=== PATIENT | male | born 1960 | race Caucasian/White ===

== ENCOUNTER → 2020-09-14 14:40 | Outpatient (BNVA) | payer OTHER, SELFPAY | PROVIDERS: PCP Internal Medicine; Visit Provider Urology | DX: Z13.89 Encounter for screening for other disorder (principal) ==

== ENCOUNTER 2021-03-17 13:16 | Outpatient (REF) | payer OTHER, SELFPAY ==
[2021-03-17 14:52] LABS: Prostate Specific Antigen 7.23 ng/mL (<0.05-4.0)
== END 2021-03-17 13:17 | disposition home or self-care (01) ==
LOC: HO.HMGCLDS 13:16
PROVIDERS: PCP Internal Medicine; Visit Provider Urology
DX: N20.0 Calculus of kidney (principal); N40.1 Benign prostatic hyperplasia with lower urinary tract symptoms; N13.8 Other obstructive and reflux uropathy; R97.20 Elevated prostate specific antigen [PSA]; Z12.5 Encounter for screening for malignant neoplasm of prostate
CPT/HCPCS: 36415; 84153

== ENCOUNTER → 2021-03-22 13:46 | Outpatient (BNVA) | payer OTHER, SELFPAY | PROVIDERS: PCP Internal Medicine; Visit Provider Urology ==

== ENCOUNTER 2021-05-04 15:11 | Outpatient (REF) | payer OTHER, SELFPAY ==
[2021-05-04 17:23] LABS: PSA,Total (Free>4and<10) 4.47 ng/mL (0.00-4.00)
[2021-05-08 13:21] LABS: Free Prostate Spec Ag 0.3 ng/mL; Percent Free Prostate Spec Ag 7 % (calc) (>25); Prostate Specific Ag Total 4.4 ng/mL (< OR = 4.0)
== END 2021-05-04 15:12 | disposition home or self-care (01) ==
LOC: HO.HMGCLDS 15:11
PROVIDERS: PCP Internal Medicine; Visit Provider Urology
DX: Z12.5 Encounter for screening for malignant neoplasm of prostate (principal); R97.20 Elevated prostate specific antigen [PSA]
CPT/HCPCS: 36415; 84153; 84154

== ENCOUNTER → 2021-05-16 14:07 | Outpatient (BNVA) | payer OTHER, SELFPAY | PROVIDERS: Visit Provider Urology | DX: Z13.89 Encounter for screening for other disorder (principal) ==

== ENCOUNTER → 2021-07-06 11:34 | Outpatient (BNVA) | payer OTHER, SELFPAY | PROVIDERS: PCP Internal Medicine; Visit Provider Urology ==

== ENCOUNTER → 2021-08-09 08:32 | Outpatient (BNVA) | payer OTHER, SELFPAY | PROVIDERS: PCP Internal Medicine; Visit Provider Urology ==

== ENCOUNTER → 2021-09-20 08:31 | Outpatient (BNVA) | payer OTHER, SELFPAY | PROVIDERS: PCP Internal Medicine; Visit Provider Urology | DX: Z13.89 Encounter for screening for other disorder (principal) ==

== ENCOUNTER 2022-01-17 14:03 | Outpatient (REF) | payer OTHER, SELFPAY ==
--- NOTE | ~2022-01-17 | US_ITS ---
EXAMINATION: US RETROPERITONEAL LIMITED (RENAL ONLY) CLINICAL INFORMATION: Calculus of kidney. COMPARISON: None TECHNIQUE: Real-time imaging of the kidneys. FINDINGS: RIGHT KIDNEY: 12.5 x 6.8 x 7.4 cm (SAG x AP x TRV). The kidney is normal in size, contour, and echogenicity. Renal cortical thickness is normal. No renal hydronephrosis. There is an anechoic partially exophytic cyst lower pole measuring 5.6 x 5.7 x 5.3 cm. A nonobstructive echogenic stone midpole measures 0.6 x 0.3 x 0.6 cm. There is no caliectasis. LEFT KIDNEY: 11 x 7.2 x 5.3 cm (SAG x AP x TRV). The kidney is normal in size, contour, and echogenicity. Renal cortical thickness is normal. No calculi or focal parenchymal lesions. No hydronephrosis. US/US renal BI IMPRESSION: 1. Partially exophytic cyst lower pole right kidney measuring 5.7 cm. 2. Nonobstructive echogenic calculi midpole right kidney. No caliectasis or hydronephrosis. 3. Unremarkable left kidney.
== END 2022-01-17 14:04 | disposition home or self-care (01) ==
LOC: HO.US 14:03
PROVIDERS: PCP Internal Medicine; Visit Provider Urology
DX: N20.0 Calculus of kidney (principal)
CPT/HCPCS: 76775

== ENCOUNTER → 2022-03-27 08:52 | Outpatient (BNVA) | payer OTHER, SELFPAY | PROVIDERS: PCP Internal Medicine; Visit Provider Urology | DX: R35.0 Frequency of micturition (principal); R35.1 Nocturia; R39.15 Urgency of urination | CPT/HCPCS: 51798 ==

== ENCOUNTER 2022-12-06 16:36 | Outpatient (REF) | payer OTHER, SELFPAY ==
[2022-12-06 18:30] LABS: PSA,Total (Free>4and<10) 5.63 ng/mL (0.00-4.00)
[2022-12-11 10:38] LABS: Free Prostate Spec Ag 0.5 ng/mL; Percent Free Prostate Spec Ag 11 % (calc) (>25); Prostate Specific Ag Total 4.7 ng/mL (< OR = 4.0)
== END 2022-12-06 16:37 | disposition home or self-care (01) ==
LOC: HO.LAB 16:36
PROVIDERS: PCP Internal Medicine; Visit Provider Urology
DX: R97.20 Elevated prostate specific antigen [PSA] (principal); Z12.5 Encounter for screening for malignant neoplasm of prostate
CPT/HCPCS: 36415; 84153; 84154

== ENCOUNTER → 2022-12-11 11:45 | Outpatient (BNVA) | payer OTHER, SELFPAY | PROVIDERS: PCP Internal Medicine; Visit Provider Urology | DX: R97.20 Elevated prostate specific antigen [PSA] (principal); N20.0 Calculus of kidney; Z79.899 Other long term (current) drug therapy | CPT/HCPCS: 51798 ==

== ENCOUNTER 2023-01-22 07:50 | Outpatient (REF) | payer OTHER, SELFPAY ==
[2023-01-22 07:36] VITALS: BP 179/105; PULSE 70; RESP 19; TEMP 36.6; O2SAT 95; BMI 44.1
--- NOTE | 2023-01-22 08:26 | W.PM.OPN ---
Operative Note Operative Note Date of Service: 01/22/23 Narrative: Preoperative diagnosis: Elevated PSA Postoperative diagnosis: elevated PSA Procedure: 1. transrectal ultrasound measurement of prostate 2. transrectal ultrasound-guided pudendal nerve block 3. transrectal ultrasound-guided prostate biopsy 12 core Surgeon: Dr. Kevin Escamilla Anesthetic: Local Indications for procedure: Elevated PSA On finasteride 5.6 Procedure: After informed consent was verified, the patient was brought into the procedure area and lay left-hand side down on the table. Patient identity confirmed. Perioperative antibiotics confirmed. Safety pause time out performed. JUAN performed to dilate rectal sphincter Iodine 10cc with Gel was placed per rectum Ultrasound probe was placed per rectum The prostate was measured in 3 dimensions Total volume equals 55 gm No cystic structures were noted Yes - calcifications were noted at the surgical margin The prostate was otherwise homogeneous in nature An ultrasound-guided pudendal nerve block was performed using 10 cc of 1% lidocaine. 8 cc was placed at the base and 2 cc of the apex. A 12 core biopsy was performed with 6 cores each side. Two cores were taken at the apex, mid and base. Cores were spaced between lateral and medial. He tolerated the procedure well. Was able to ambulate to bathroom after 5 minutes. Printed instructions regarding antibiotic use and common side effects such as low-grade temperature, potential infection and bleeding were given Pathology: 12 core prostate biopsy.
== END 2023-01-22 07:51 | disposition home or self-care (01) ==
LOC: HO.MS 07:50
PROVIDERS: PCP Internal Medicine; Visit Provider Urology
PROC: (CPT 55700; principal; 2023-01-22 08:00)
DX: C61 Malignant neoplasm of prostate (principal); R97.20 Elevated prostate specific antigen [PSA]
CPT/HCPCS: 55700; 76942; 88305

== ENCOUNTER → 2023-01-22 07:50 | Outpatient (BNV) | payer OTHER, SELFPAY | PROVIDERS: PCP Internal Medicine; Visit Provider Urology | DX: R97.20 Elevated prostate specific antigen [PSA] (principal) | CPT/HCPCS: 55700; 76942 ==

== ENCOUNTER 2023-02-05 09:49 | Outpatient (AMB) | payer OTHER, SELFPAY ==
--- NOTE | 2023-02-05 09:50 | A.OFFVIS_ITS ---
Intake Intake Visit Reasons: biopsy results Intake Note: Patient is present for Telephone Biopsy Urology Med: Festoterodine, Finasteride, Antibiotic Allergy: None Blood Thinner: None [facility]acy: [facility] Allergies meperidine [Demerol] Allergy (Unknown, Verified 02/05/23 09:51) Unknown Medication List - Last Reconciled 02/05/23 by Kevin Escamilla MD amlodipine 5 mg PO DAILY atorvastatin 20 mg PO DAILY fesoterodine ER 8 mg PO DAILY 30 days finasteride 5 mg PO DAILY 90 days hydrochlorothiazide 25 mg PO DAILY levofloxacin 500 mg PO daily 3 days nadolol 80 mg PO DAILY sertraline 3 mg PO Q OTHER DAY PRN sertraline 100 mg PO DAILY HPI HPI Comments History of Present Illness Details Mr Hagen is a very pleasant male. He is a patient of Dr Encinas. He is seen for the following urologic conditions. - lower urinary tract symptoms - nephrolithiasis Telemedicine Evaluation 15 min Consultation [employer] David Video attempted Discussed diagnosis High risk disease clinically localized Options include external beam radiation versus surgery Plan for staging imaging Has retired in is now working at [employer] - greatly improved his outlook on life Prostate Cancer - High risk, clinically localized Diagnosed 01/20 Dr Escamilla No family history of prostate cancer TRUS - 01/20 55gm PSA 4.7 F 11% on finasteride Jayna score: 5+4=9 (left apex lateral, left apex medial), 4+5=9 (left mid lateral, left mid medial), 3+5=8 (Left base medial), 3+4=7 (left base lateral) Tumor quantitation: Number cores positive: 6 Total number of cores: 12 % of tissue involved: 40% (all on the left) Periprostatic fat inv.: Not identified Seminal vesicle inv.: Not identified Perineural inv.: Present LVI: Not identified Lower Urinary Tract Symptoms: Current visit is for further evaluation of, lower urinary tract symptoms, predominate obstructive symptoms - PSA decline on finasteride from 7.2-4.5 Current treatment includes medication- finasteride Prior medications - oxybutynin with significant dehydration, dry mouth, tolterodine minimal benefit - Myrbetriq too expensive Prostate Symptom Score 8/18 , Mild (0-8), Bother 2. Symptoms include 8/ , nocturia (>2), weak stream, and are improving. PSA 06/18 4.8, 2/20 3.8, 08/21 4.4, 03/21 7.2, 05/21 4.5 finasteride, 12/21 4.7 11% Cystoscopy - 05/21 open bladder neck with high bladder lip Nephrolithiasis/Urolithiasis: They are here for further evaluation of nephrolithiasis Urolithiasis was diagnosed 2010. The patient previously had kidney stones whose composition w unknown. Laboratory investigations include no recent labs. 24 Hour urine evaluation none on file. Prior treatment(s) include observation, with dietary advice to increase fluids, decrease salt and watch protein intake , ESWL 04/10 right side. Prior imaging includes November 2015 a KUB x-ray, showing no evidence of stones December 2016, a KUB x-ray, showing no evidence of stones 01/15 , a renal ultrasound, right 2cm cyst, left 4x3mm stone 08/19 , a renal ultrasound, stable cyst and stoned in left kidney 08/20 , a renal ultrasound, stable cysts and no stones - 03/21 renal ultrasound bilateral renal cyst right 5 cm, left 2 cm. No stone - 01/19 renal ultrasound stable cysts, question 4 mm right stone UA today shows 5.5-6.0, low pH suggestive of higher protein load, high specific gravity suggestive of relative dehydration. Current therapeutic plan will be to continue with imaging surveillance at appropriate interval [facility] Medical History Benign prostatic hyperplasia with lower urinary tract symptoms Elevated PSA History of urinary hesitancy Poor urinary stream Weak urinary stream Surgical History H/O hand surgery Hx of lithotripsy Family History Father No problems noted. Mother Cancer Arthritis of knee Assessment & Plan Assessment & Plan (1) Prostate cancer: Comment: High Grade Code(s): C61 - Malignant neoplasm of prostate Plan Plan imaging Orders: Orders Blood Urea Nitrogen Today C61 - Malignant neoplasm of prostate, R39.15 - Urgency of urination Creatinine Today C61 - Malignant neoplasm of prostate, R39.15 - Urgency of urination MR pelvis wo/w con 2 Weeks C61 - Malignant neoplasm of prostate NM bone scan whole body Today C61 - Malignant neoplasm of prostate, C79.51 - Secondary malignant neoplasm of bone Patient Instructions: Imaging studies, laboratory and physical exam results were discussed and reviewed in detail. No major barriers to patient understanding were identified. An opportunity to ask questions regarding the treatment plan was provided. All questions were answered. The patient expressed understanding and agreement with the above treatment plan. The patient is aware they should contact our office by phone for worsening of their current condition or the appearance of new urologic symptoms. Compliance is encouraged with any medications and followup testing that is ordered. It is a privilege to participate in the urologic care of your patient. If you have any questions or concerns regarding treatment for the above conditions, or other urologic issues, please do not hesitate to contact me. The office telephone contact is [phone]. This note is constructed using voice recognition software. While every effort has been made to ensure accuracy communication coordinator errors may have been included. Yours sincerely, Dr Kevin Escamilla MD, [facility] - Urology Providers of Expert, Compassionate Care for the Genitourinary System Telehealth Telehealth Location of provider rendering services: practice address Location of patient: address on file Patient Identification confirmed using: Name, : Yes Telehealth method: video Patient verbally consented to treatment: Yes Patient verbally consented to billing insurance company: Yes Patient informed of any privacy concerns related to visit: Yes Coding Level of Care Code Tele Est Pt Level 4 (25244) Diagnoses Prostate cancer C61
== END 2023-02-05 11:36 | disposition home or self-care (01) ==
LOC: HO.HUSH 09:49
PROVIDERS: PCP Internal Medicine; Visit Provider Urology
DX: C61 Malignant neoplasm of prostate (principal)
CPT/HCPCS: 99214

== ENCOUNTER → 2023-02-05 09:49 | Outpatient (BNVA) | payer OTHER, SELFPAY | PROVIDERS: PCP Internal Medicine; Visit Provider Urology ==

== ENCOUNTER → 2023-02-18 10:49 | Outpatient (REF) | payer OTHER, SELFPAY ==
--- NOTE | ~2023-02-18 | NM_ITS ---
EXAMINATION: NM BONE SCAN OF THE WHOLE BODY CLINICAL INFORMATION: Elevated PSA. Newly diagnosed prostate cancer. COMPARISON: No existing relevant imaging study available. TECHNIQUE: Multiple gamma scintillation camera images of the whole body were performed 2.5 hours following the intravenous administration of 45.0 mCi Tc-99m MDP. The radiotracer was injected through left antecubital superficial vein without complications. FINDINGS: In the head, no focal abnormality. In the thoracic cage and upper extremities, no suspicious focal abnormality. In the spine, mild heterogeneous radiotracer uptake is noted within the thoracic spine, most pronounced at mid thoracic spine to the right of the midline, likely represent degenerative changes. In the pelvis, multifocal increased radiotracer activity is noted within the left hemipelvis and the left groin and around the external genitalia, likely represent urinary contamination. In the lower extremities, asymmetric focal increased radiotracer activity in the region of the calcaneus on the right may represent enthesopathy. No other definite bony abnormalities are noted. The urinary bladder and faint visualization of both kidneys are noted. NM/NM bone scan whole body IMPRESSION: No definite scintigraphic evidence of osseous metastasis. Multifocal increased radiotracer activities at left lower hemipelvis and the left groin and the left external genitalia region likely represent urinary contamination. Follow-up PSMA-avid PET/CT study (more sensitive and specific for evaluation of prostate cancer) may be considered for further full detail evaluation, if clinically appropriate.
== END ==
LOC: HO.NUCMED 10:49
PROVIDERS: PCP Internal Medicine; Visit Provider Urology
DX: C61 Malignant neoplasm of prostate (principal); C79.51 Secondary malignant neoplasm of bone
CPT/HCPCS: 78306; A9503

== ENCOUNTER 2023-03-28 13:50 | Outpatient (AMB) | payer OTHER, SELFPAY ==
--- NOTE | 2023-03-28 13:53 | A.OFFVIS_ITS ---
Intake Intake Visit Reasons: GnRH/MRI/bone scan-Approved (set Intake Note: Patient presents today for a follow-up on: Meds- Fiansteride Allergies to Antibiotic- No Known Allergies Blood Thinner- None Allergies meperidine [Demerol] Allergy (Unknown, Verified 02/05/23 09:51) Unknown Medication List - Last Reconciled 03/28/23 by Kevin Escamilla MD amlodipine 5 mg PO DAILY atorvastatin 20 mg PO DAILY diazepam 2 mg PO BID PRN 1 day fesoterodine ER 8 mg PO DAILY 30 days finasteride 5 mg PO DAILY 90 days hydrochlorothiazide 25 mg PO DAILY leuprolide acetate (6 month) (Eligard) 45 mg subcut [id number] levofloxacin 500 mg PO daily 3 days nadolol 80 mg PO DAILY sertraline 3 mg PO Q OTHER DAY PRN sertraline 100 mg PO DAILY HPI HPI Comments History of Present Illness Details Mr Hagen is a very pleasant male. He is a patient of Dr Encinas. He is seen for the following urologic conditions. - lower urinary tract symptoms - nephrolithiasis Completed staging Bone scan negative MRI 2 cm lesion, abutting capsule, no evidence of seminal vesicle involvement, likely neurovascular bundle involvement Based on imaging findings recommend external beam radiation with 18-24 months hormonal suppression GnRH administered today Has retired in is now working at [employer] - greatly improved his outlook on life Prostate Cancer - High risk, clinically localized 03/23 GnRH Diagnosed 01/20 Dr Escamilla No family history of prostate cancer TRUS - 01/20 55gm PSA 4.7 F 11% on finasteride Jayna score: 5+4=9 (left apex lateral, left apex medial), 4+5=9 (left mid lateral, left mid medial), 3+5=8 (Left base medial), 3+4=7 (left base lateral) Tumor quantitation: Number cores positive: 6 Total number of cores: 12 % of tissue involved: 40% (all on the left) Periprostatic fat inv.: Not identified Seminal vesicle inv.: Not identified Perineural inv.: Present LVI: Not identified Staging Bone scan negative MRI 2 cm lesion, abutting capsule, no evidence of seminal vesicle involvement, likely neurovascular bundle involvement Lower Urinary Tract Symptoms: Current visit is for further evaluation of, lower urinary tract symptoms, predominate obstructive symptoms - PSA decline on finasteride from 7.2-4.5 Current treatment includes medication- finasteride Prior medications - oxybutynin with significant dehydration, dry mouth, tolterodine minimal benefit - Myrbetriq too expensive Prostate Symptom Score 8 , Mild (0-8), Bother 2. Symptoms include 02/15 , nocturia (>2), weak stream, and are improving. PSA 06/18 4.8, 08/20 3.8, 08/21 4.4, 03/21 7.2, 05/21 4.5 finasteride, 12/21 4.7 11% Cystoscopy - 05/21 open bladder neck with high bladder lip Nephrolithiasis/Urolithiasis: They are here for further evaluation of nephrolithiasis Urolithiasis was diagnosed 2010. The patient previously had kidney stones whose composition w unknown. Laboratory investigations include no recent labs. 24 Hour urine evaluation none on file. Prior treatment(s) include observation, with dietary advice to increase fluids, decrease salt and watch protein intake , ESWL 04/10 right side. Prior imaging includes November 2015 a KUB x-ray, showing no evidence of stones December 2016, a KUB x-ray, showing no evidence of stones 01/15 , a renal ultrasound, right 2cm cyst, left 4x3mm stone 08/19 , a renal ultrasound, stable cyst and stoned in left kidney 08/20 , a renal ultrasound, stable cysts and no stones - 03/21 renal ultrasound bilateral renal cyst right 5 cm, left 2 cm. No stone - 01/19 renal ultrasound stable cysts, question 4 mm right stone UA today shows 5.5-6.0, low pH suggestive of higher protein load, high specific gravity suggestive of relative dehydration. Current therapeutic plan will be to continue with imaging surveillance at appropriate interval [facility] Medical History Elevated PSA Benign prostatic hyperplasia with lower urinary tract symptoms Poor urinary stream History of urinary hesitancy Weak urinary stream Surgical History H/O hand surgery Hx of lithotripsy Family History Father No problems noted. Mother Cancer Arthritis of knee Review of Systems Const Denies chills and Denies fever(s) Card Reports no additional complaints and Denies syncope Resp Denies cough GI Denies abdominal pain and Denies heartburn Reports as per HPI and Denies change in libido Neuro Denies syncope Psych Denies change in libido Endo Denies change in libido Physical Exam Const General: cooperative, healthy appearing, comfortable and no acute distress Orientation/consciousness: patient oriented x3 HEENT Face and sinus: Yes normal facial exam Mouth: moist mucous membranes Neck Neck: Yes normal visual inspection, Yes full ROM and Yes trachea midline Chest Chest palpation & inspection: normal inspection of the chest Resp Effort & Inspection: normal respiratory effort, able to speak in complete sentences and no respiratory distress GI Inspection: Yes normal to inspection Back/Spine/Pelvis Cervical Spine: normal cervical lordosis Thoracic/Lumbar Spine: thoracic and lumbar spine normal to inspection Skin General skin exam: no rashes or lesions noted Neuro General: patient oriented x3, gait normal, tone normal and moves all extremities Extrem General: Yes normal to inspection and Yes capillary refill normal Office Meds Eligard (6 month) 45 mg (6 month) subcutaneous syringe Performing Provider: Kevin Escamilla MD Performing Location[facility] [place] [facility] Administered by: Sherif Elliott LPN on 03/28/23 14:08 Dose Route Admin Location Dispensed Lot Number Expiration Date [facility] Director Card 45 mg subcut right arm 45 mg [id number] 07/01/24 74836-512-72 [email or web address]. Assessment & Plan Assessment & Plan (1) Prostate cancer: Comment: High Grade Code(s): C61 - Malignant neoplasm of prostate Plan Radiation oncology referral Orders: Orders AMB Leuprolide Injection - Practice Supplied Today C61 - Malignant neoplasm of prostate Referrals Radiation Oncology Referral C61 - Malignant neoplasm of prostate Patient Instructions: Imaging studies, laboratory and physical exam results were discussed and reviewed in detail. No major barriers to patient understanding were identified. An opportunity to ask questions regarding the treatment plan was provided. All questions were answered. The patient expressed understanding and agreement with the above treatment plan. The patient is aware they should contact our office by phone for worsening of their current condition or the appearance of new urologic symptoms. Compliance is encouraged with any medications and followup testing that is ordered. It is a privilege to participate in the urologic care of your patient. If you have any questions or concerns regarding treatment for the above conditions, or other urologic issues, please do not hesitate to contact me. The office telephone contact is [phone]. This note is constructed using voice recognition software. While every effort has been made to ensure accuracy real estate branch manager errors may have been included. Yours sincerely, Dr Kevin Escamilla MD, [facility] - Urology Providers of Expert, Compassionate Care for the Genitourinary System Coding Level of Care Code Est Pt Level 3 (77863) Diagnoses Prostate cancer C61
== END 2023-03-28 14:59 | disposition home or self-care (01) ==
PROVIDERS: PCP Internal Medicine; Visit Provider Urology
DX: C61 Malignant neoplasm of prostate (principal)
CPT/HCPCS: 99213

== ENCOUNTER → 2023-03-28 13:50 | Outpatient (BNVA) | payer OTHER, SELFPAY | PROVIDERS: PCP Internal Medicine; Visit Provider Urology | DX: C61 Malignant neoplasm of prostate (principal) | CPT/HCPCS: 96402; J9217 ==

== ENCOUNTER 2023-04-25 10:39 | Outpatient (AMB) | payer OTHER, SELFPAY ==
--- NOTE | 2023-04-25 10:57 | A.OFFVIS_ITS ---
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: No Accompanied by: Self / Same As Patient Allergies meperidine [Demerol] Allergy (Unknown, Verified 04/25/23 10:58) Unknown Medication List - Last Reconciled 04/25/23 by Kevin Escamilla MD amlodipine 5 mg PO DAILY atorvastatin 20 mg PO DAILY diazepam 2 mg PO BID PRN 1 day fesoterodine ER 8 mg PO DAILY 30 days finasteride 5 mg PO DAILY 90 days hydrochlorothiazide 25 mg PO DAILY leuprolide acetate (6 month) (Eligard) 45 mg subcut [id number] levofloxacin 500 mg PO daily 3 days nadolol 80 mg PO DAILY sertraline 3 mg PO Q OTHER DAY PRN sertraline 100 mg PO DAILY HPI HPI Comments History of Present Illness Details Mr Hagen is a very pleasant male. He is a patient of Dr Encinas. He is seen for the following urologic conditions. - lower urinary tract symptoms - nephrolithiasis Telemedicine Evaluation 15 min Consultation [place] [employer] Has retired in is now working at [employer] - greatly improved his outlook on life Has upcoming appointment with radiation Plan for marker placement Prostate Cancer - High risk, clinically localized 03/23 GnRH Diagnosed 01/20 Dr Escamilla No family history of prostate cancer TRUS - 01/20 55gm PSA 4.7 F 11% on finasteride [place] score: 5+4=9 (left apex lateral, left apex medial), 4+5=9 (left mid lateral, left mid medial), 3+5=8 (Left base medial), 3+4=7 (left base lateral) Tumor quantitation: Number cores positive: 6 Total number of cores: 12 % of tissue involved: 40% (all on the left) Periprostatic fat inv.: Not identified Seminal vesicle inv.: Not identified Perineural inv.: Present LVI: Not identified Staging 02/20 Bone scan negative 02/20 MRI 2 cm lesion, abutting capsule, no evidence of seminal vesicle involvement, 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 PSA 06/18 4.8, 08/20 3.8, 08/21 4.4, 03/21 7.2, 05/21 4.5 finasteride, 12/21 4.7 11% Cystoscopy - 05/21 open bladder neck with high bladder lip Nephrolithiasis/Urolithiasis: They are here for further evaluation of nephrolithiasis Urolithiasis was diagnosed 2010. The patient previously had kidney stones whose composition w unknown. Laboratory investigations include no recent labs. 24 Hour urine evaluation none on file. Prior treatment(s) include observation, with dietary advice to increase fluids, decrease salt and watch protein intake , ESWL 04/10 right side. Prior imaging includes November 2015 a KUB x-ray, showing no evidence of stones December 2016, a KUB x-ray, showing no evidence of stones 01/15 , a renal ultrasound, right 2cm cyst, left 4x3mm stone 08/19 , a renal ultrasound, stable cyst and stoned in left kidney 08/20 , a renal ultrasound, stable cysts and no stones - 03/21 renal ultrasound bilateral renal cyst right 5 cm, left 2 cm. No stone - 01/19 renal ultrasound stable cysts, question 4 mm right stone UA today shows 5.5-6.0, low pH suggestive of higher protein load, high specific gravity suggestive of relative dehydration. Current therapeutic plan will be to continue with imaging surveillance at appropriate interval [facility] Medical History Elevated PSA Benign prostatic hyperplasia with lower urinary tract symptoms Poor urinary stream History of urinary hesitancy Weak urinary stream Surgical History H/O hand surgery Hx of lithotripsy Family History Father No problems noted. Mother Cancer Arthritis of knee Review of Systems Const All systems reviewed & are unremarkable except as noted in HPI and below Reports no additional complaints Resp Reports no additional complaints GI Reports no additional complaints Reports as per HPI Musc Reports no additional complaints Physical Exam Telemedicine evaluation Appropriate responses Regular breathing rate and rhythm HEENT Head: Yes normal to inspection Ears: hearing grossly normal bilaterally Eyes General: appearance normal, both eyes and all related structures Neck Neck: Yes normal visual inspection Chest Chest palpation & inspection: normal inspection of the chest Resp Effort & Inspection: normal respiratory effort and able to speak in complete sentences Assessment & Plan Assessment & Plan (1) Prostate cancer: Comment: High Grade Code(s): C61 - Malignant neoplasm of prostate (2) Nocturia more than twice per night: Code(s): R35.1 - Nocturia Plan Short-term new medication to help with bladder stability Medications: Discontinued fesoterodine ER Discontinued Reason: Patient Completed Course 8 mg PO DAILY 30 days 30 tabs 1RF R35.0 - Frequency of micturition Patient Instructions: Imaging studies, laboratory and physical exam results were discussed and reviewed in detail. No major barriers to patient understanding were identified. An opportunity to ask questions regarding the treatment plan was provided. All questions were answered. The patient expressed understanding and agreement with the above treatment plan. The patient is aware they should contact our office by phone for worsening of their current condition or the appearance of new urologic symptoms. Compliance is encouraged with any medications and followup testing that is ordered. It is a privilege to participate in the urologic care of your patient. If you have any questions or concerns regarding treatment for the above conditions, or other urologic issues, please do not hesitate to contact me. The office telephone contact is [phone]. This note is constructed using voice recognition software. While every effort has been made to ensure accuracy line service technician errors may have been included. Yours sincerely, Dr Kevin Escamilla MD, [facility] - Urology Providers of Expert, Compassionate Care for the Genitourinary System Telehealth Telehealth Location of provider rendering services: practice address Location of patient: address on file Patient Identification confirmed using: Name, : Yes Telehealth method: video Patient verbally consented to treatment: Yes Patient verbally consented to billing insurance company: Yes Patient informed of any privacy concerns related to visit: Yes Coding Level of Care Code Tele Est Pt Level 4 (21478) Diagnoses Prostate cancer C61 Nocturia more than twice per night R35.1
== END 2023-04-25 12:10 | disposition home or self-care (01) ==
LOC: HO.HUSH 10:39
PROVIDERS: PCP Internal Medicine; Visit Provider Urology
DX: C61 Malignant neoplasm of prostate (principal); R35.1 Nocturia
CPT/HCPCS: 99214

== ENCOUNTER → 2023-04-25 10:39 | Outpatient (BNVA) | payer OTHER, SELFPAY | PROVIDERS: PCP Internal Medicine; Visit Provider Urology ==

== ENCOUNTER 2023-05-21 07:46 | Outpatient (REF) | payer OTHER, SELFPAY ==
[2023-05-21 08:01] VITALS: BMI 43.5
[2023-05-21 08:02] VITALS: BP 161/83; PULSE 55; RESP 16; TEMP 36.1; O2SAT 95
--- NOTE | 2023-05-21 08:21 | W.PM.OPN ---
Operative Note Operative Note Date of Service: 05/21/23 Narrative: Preoperative diagnosis: Prostate cancer Postoperative diagnosis: Prostate cancer Procedure: 1. Transrectal ultrasound-guided pudendal nerve block 2. Transrectal ultrasound-guided gold seed placement Surgeon: Dr. Kevin Escamilla Anesthetic: Local Indications for procedure: Prostate Cancer - has planned EXBRT with Dr Webb at [facility]. No note on file.. Procedure: After informed consent was verified, the patient was brought into the procedure area and lay left-hand side down on the table. Patient identity confirmed. Perioperative antibiotics confirmed. Gel was placed per rectum Ultrasound probe was placed per rectum A ultrasound-guided pudendal nerve block was performed using 10 cc of 1% lidocaine. 8 cc was placed at the base and 2 cc of the apex. 2 visicoil seed markers placed. 1 on the right, 1 on the left. The purpose is for triangulation. He tolerated the procedure well. Was able to ambulate to bathroom after 5 minutes. Printed instructions regarding antibiotic use and common side effects such as low-grade temperature and bleeding were given
[2023-05-21 08:45] VITALS: BP 145/68; PULSE 56; RESP 16; O2SAT 94
== END 2023-05-21 07:47 | disposition home or self-care (01) ==
LOC: HO.MS 07:46
PROVIDERS: PCP Internal Medicine; Visit Provider Urology
PROC: (CPT 55876; principal; 2023-05-21 08:00)
DX: C61 Malignant neoplasm of prostate (principal)
CPT/HCPCS: 55876; 76942; A4648

== ENCOUNTER → 2023-05-21 07:46 | Outpatient (BNV) | payer OTHER, SELFPAY | PROVIDERS: PCP Internal Medicine; Visit Provider Urology | DX: C61 Malignant neoplasm of prostate (principal) | CPT/HCPCS: 55876; 76872 ==

== ENCOUNTER 2023-07-26 08:52 | Outpatient (AMB) | payer OTHER, SELFPAY ==
--- NOTE | 2023-07-26 09:23 | A.OFFVIS_ITS ---
Intake Intake Visit Reasons: 3 month (visicoil) Intake Note: Patient is Present for Follow Up Urology Medication: Finasteride, Eligard (Q6M) Antibiotic Allergies: None Blood Thinners: None Allergies meperidine [Demerol] Allergy (Unknown, Verified 04/25/23 10:58) Unknown Medication List - Last Reconciled 07/26/23 by Kevin Escamilla MD amlodipine 5 mg PO DAILY atorvastatin 20 mg PO DAILY bicalutamide 50 mg PO .DAILY 90 days diazepam 2 mg PO BID PRN 1 day finasteride 5 mg PO DAILY 90 days hydrochlorothiazide 25 mg PO DAILY leuprolide acetate (6 month) (Eligard) 45 mg subcut [id number] levofloxacin 500 mg PO daily 3 days nadolol 80 mg PO DAILY sertraline 3 mg PO Q OTHER DAY PRN sertraline 100 mg PO DAILY HPI HPI Comments History of Present Illness Details Mr Hagen is a very pleasant male. He is a patient of Dr Encinas. He is seen for the following urologic conditions. - lower urinary tract symptoms - nephrolithiasis High-risk clinically localized disease Undergoing external beam radiation therapy with maximum androgen blockade This therapy included GnRH, antiandrogen + androgen biosynthesis inhibition Classically this involved combination GnRH, bicalutamide, finasteride Modern combinations include GnRH, bicalutamide/enzalutamide plus abiraterone/prednisone The 5-year results of AbiRT were presented at [facility] 2020. In this trial patients with unfavorable intermediate risk or low volume high risk prostate cancer (Eligibility included 2+ intermediate or 1 high NCCN risk factors and no metastatic disease) were treated with 6 months of abiraterone, prednisone, and depot LHRH agonist. The 5-year bPFS was 92%.This study suggested that a short course of complete androgen blockade (abiraterone with prednisone and LHRH agonist) and definitive RT may be beneficial without long-term toxicity as compared to 2-3 years of abiraterone and ADT. - due to competing pharmaceutical compan ies modern combinations have yet to be studied in a randomized fashion Has some fatigue Only receiving prednisone 5 mg daily - prescription provided for b.i.d. Suggested to reduce abiraterone to 3 tablets Working at [employer] - greatly improved his outlook on life Prostate Cancer - High risk, clinically localized - external beam radiotherapy with radiation oncology Dr. Rodriguez [facility], Medical Oncology [facility] Dr. Love 03/23 GnRH Diagnosed 01/20 Dr Escamilla No family history of prostate cancer TRUS - 01/20 55gm PSA 4.7 F 11% on finasteride [place] score: 5+4=9 (left apex lateral, left apex medial), 4+5=9 (left mid lateral, left mid medial), 3+5=8 (Left base medial), 3+4=7 (left base lateral) Tumor quantitation: Number cores positive: 6 Total number of cores: 12 % of tissue involved: 40% (all on the left) Periprostatic fat inv.: Not identified Seminal vesicle inv.: Not identified Perineural inv.: Present LVI: Not identified Staging 02/20 Bone scan negative 02/20 MRI 2 cm lesion, abutting capsule, no evidence of seminal vesicle inv olvement, 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 PSA 06/18 4.8, 08/20 3.8, 08/21 4.4, 03/21 7.2, 05/21 4.5 finasteride, 12/21 4.7 11% Cystoscopy - 05/21 open bladder neck with high bladder lip Nephrolithiasis/Urolithiasis: They are here for further evaluation of nephrolithiasis Urolithiasis was diagnosed 2010. The patient previously had kidney stones whose composition w unknown. Laboratory investigations include no recent labs. 24 Hour urine evaluation none on file. Prior treatment(s) include observation, with dietary advice to increase fluids, decrease salt and watch protein intake , ESWL 04/10 right side. Prior imaging includes November 2015 a KUB x-ray, showing no evidence of stones December 2016, a KUB x-ray, showing no evidence of stones 01/15 , a renal ultrasound, right 2cm cyst, left 4x3mm stone 08/19 , a renal ultrasound, stable cyst and stoned in left kidney 08/20 , a renal ultrasound, stable cysts and no stones - 03/21 renal ultrasound bilateral renal cyst right 5 cm, left 2 cm. No stone - 01/19 renal ultrasound stable cysts, question 4 mm right stone UA today shows 5.5-6.0, low pH suggestive of higher protein load, high specific gravity suggestive of relative dehydration. Current therapeutic plan will be to continue with imaging surveillance at appropriate interval [facility] Medical History Elevated PSA Benign prostatic hyperplasia with lower urinary tract symptoms Poor urinary stream History of urinary hesitancy Weak urinary stream Surgical History H/O hand surgery Hx of lithotripsy Family History Father No problems noted. Mother Cancer Arthritis of knee Review of Systems Const Denies chills and Denies fever(s) Card Reports no additional complaints and Denies syncope Resp Denies cough GI Denies abdominal pain and Denies heartburn Reports as per HPI and Denies change in libido Neuro Denies syncope Psych Denies change in libido Endo Denies change in libido Physical Exam Const General: cooperative, healthy appearing, comfortable and no acute distress Orientation/consciousness: patient oriented x3 HEENT Face and sinus: Yes normal facial exam Mouth: moist mucous membranes Neck Neck: Yes normal visual inspection, Yes full ROM and Yes trachea midline Chest Chest palpation & inspection: normal inspection of the chest Resp Effort & Inspection: normal respiratory effort, able to speak in complete sentences and no respiratory distress GI Inspection: Yes normal to inspection Back/Spine/Pelvis Cervical Spine: normal cervical lordosis Thoracic/Lumbar Spine: thoracic and lumbar spine normal to inspection Skin General skin exam: no rashes or lesions noted Neuro General: patient oriented x3, gait normal, tone normal and moves all extremities Extrem General: Yes normal to inspection and Yes capillary refill normal Assessment & Plan Assessment & Plan (1) Prostate cancer: Comment: High Grade Code(s): C61 - Malignant neoplasm of prostate Plan Adjust prednisone dosing Lab work 10 weeks GnRH 10 weeks Orders: Orders Prostate Specific Antigen 10 Weeks C61 - Malignant neoplasm of prostate, E11.69 - Type 2 diabetes mellitus with other specified complication, N52.1 - Erectile dysfunction due to diseases classified elsewhere Testosterone, Total 10 Weeks C61 - Malignant neoplasm of prostate Medications: New prednisone 5 mg PO BID 30 days 60 tabs 5RF C61 - Malignant neoplasm of prostate, 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 No major barriers to patient understanding were identified. An opportunity to ask questions regarding the treatment plan was provided. All questions were answered. The patient expressed understanding and agreement with the above treatment plan. The patient is aware they should contact our office by phone for worsening of their current condition or the appearance of new urologic symptoms. Compliance is encouraged with any medications and followup testing that is ordered. It is a privilege to participate in the urologic care of your patient. If you have any questions or concerns regarding treatment for the above conditions, or other urologic issues, please do not hesitate to contact me. The office telephone contact is [phone]. This note is constructed using voice recognition software. While every effort has been made to ensure accuracy organ fixer errors may have been included. Yours sincerely, Dr Kevin Escamilla MD, [facility] - Urology Providers of Expert, Compassionate Care for the Genitourinary System Coding Level of Care Code Est Pt Level 4 (15797) Diagnoses Prostate cancer C61
== END 2023-07-26 09:54 | disposition home or self-care (01) ==
PROVIDERS: PCP Internal Medicine; Visit Provider Urology
DX: C61 Malignant neoplasm of prostate (principal)
CPT/HCPCS: 99214

== ENCOUNTER → 2023-07-26 08:52 | Outpatient (BNVA) | payer OTHER, SELFPAY | PROVIDERS: PCP Internal Medicine; Visit Provider Urology ==

== ENCOUNTER 2023-09-20 12:58 | Outpatient (REF) | payer OTHER, SELFPAY ==
[2023-09-20 14:07] LABS: Blood Urea Nitrogen 11 mg/dL (9-16); Estimated Glomerular Filt Rate > 60
[2023-09-20 14:32] LABS: Prostate Specific Antigen < 0.10 ng/mL (<0.05-4.0)
[2023-09-28 11:59] LABS: Testosterone, Total <1 ng/dL (250-1100)
== END 2023-09-20 12:59 | disposition home or self-care (01) ==
LOC: HO.LAB 12:58
PROVIDERS: PCP Internal Medicine; Visit Provider Urology
DX: Z12.5 Encounter for screening for malignant neoplasm of prostate (principal); R39.15 Urgency of urination; E11.69 Type 2 diabetes mellitus with other specified complication; N52.1 Erectile dysfunction due to diseases classified elsewhere; C61 Malignant neoplasm of prostate
CPT/HCPCS: 36415; 82565; 84153; 84403; 84520

== ENCOUNTER 2023-10-04 11:01 | Outpatient (AMB) | payer OTHER, SELFPAY ==
--- NOTE | 2023-10-04 11:05 | A.OFFVIS_ITS ---
Intake Intake Visit Reasons: GnRH/Labs(set)Confirmed Intake Note: Patient presents today for a follow up on: Eligard Injection Meds- Finasteride, Allergies to Antibiotic- No Known Allergies Blood Thinner- None Monomer Recovery Supervisor Required: No Accompanied by: Self / Same As Patient Allergies meperidine [Demerol] Allergy (Unknown, Verified 10/04/23 11:07) Unknown HPI HPI Comments History of Present Illness Details Mr Hagen is a very pleasant male. He is a patient of Dr Encinas. He is seen for the following urologic conditions. - lower urinary tract symptoms - nephrolithiasis 09/21 P <0.1, T<1 Current therapy GnRH with abiraterone and external beam radiation HbA1c has risen 1.0 points, potassium issues Oncology have given potassium Second GnRH injection provided Continue finasteride Given diabetic complications from GnRH + antiandrogen will consider ceasing antiandrogen in 3 months based on HbA1c response The 5-year results of AbiRT were presented at [facility] 2020. In this trial patients with unfavorable intermediate risk or low volume high risk prostate cancer (Eligibility included 2+ intermediate or 1 high NCCN risk factors and no metastatic disease) were treated with 6 months of abiraterone, prednisone, and depot LHRH agonist. The 5-year bPFS was 92%.This study suggested that a short course of complete androgen blockade (abiraterone with prednisone and LHRH agonist) and definitive RT may be beneficial without long-term toxicity as compared to 2-3 years of abiraterone and ADT. - due to competing pharmaceutical compan ies modern combinations have yet to be studied in a randomized fashion Working at [facility] [facility] - greatly improved his outlook on life Prostate Cancer - High risk, clinically localized - external beam radiotherapy with radiation oncology Dr. Rodriguez [facility], Medical Oncology [facility] Dr. Reggie chauhan 03/23 GnRH, 09/20 GnRH Diagnosed 01/20 Dr Escamilla No family history of prostate cancer TRUS - 01/20 55gm PSA 4.7 F 11% on finasteride Jayna score: 5+4=9 (left apex lateral, left apex medial), 4+5=9 (left mid lateral, left mid medial), 3+5=8 (Left base medial), 3+4=7 (left base lateral) Tumor quantitation: Number cores positive: 6 Total number of cores: 12 % of tissue involved: 40% (all on the left) Periprostatic fat inv.: Not identified Seminal vesicle inv.: Not identified Perineural inv.: Present LVI: Not identified Staging 02/20 Bone scan negative 02/20 MRI 2 cm lesion, abutting capsule, no evidence of seminal vesicle involvement, 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 PSA 06/18 4.8, 08/20 3.8, 08/21 4.4, 03/21 7.2, 05/21 4.5 finasteride, 12/21 4.7 11% Cystoscopy - 05/21 open bladder neck with high bladder lip Nephrolithiasis/Urolithiasis: They are here for further evaluation of nephrolithiasis Urolithiasis was diagnosed 2010. The patient previously had kidney stones whose composition w unknown. Laboratory investigations include no recent labs. 24 Hour urine evaluation none on file. Prior treatment(s) include observation, with dietary advice to increase fluids, decrease salt and watch protein intake , ESWL 04/10 right side. Prior imaging includes November 2015 a KUB x-ray, showing no evidence of stones December 2016, a KUB x-ray, showing no evidence of stones 01/15 , a renal ultrasound, right 2cm cyst, left 4x3mm stone 08/19 , a renal ultrasound, stable cyst and stoned in left kidney 08/20 , a renal ultrasound, stable cysts and no stones - 03/21 renal ultrasound bilateral renal cyst right 5 cm, left 2 cm. No stone - 01/19 renal ultrasound stable cysts, question 4 mm right stone UA today shows 5.5-6.0, low pH suggestive of higher protein load, high specific gravity suggestive of relative dehydration. Current therapeutic plan will be to continue with imaging surveillance at appropriate interval [facility] Medical History Elevated PSA Benign prostatic hyperplasia with lower urinary tract symptoms Poor urinary stream History of urinary hesitancy Weak urinary stream Surgical History H/O hand surgery Hx of lithotripsy Family History Father No problems noted. Mother Cancer Arthritis of knee Review of Systems Const Denies chills and Denies fever(s) Card Reports no additional complaints and Denies syncope Resp Denies cough GI Denies abdominal pain and Denies heartburn Reports as per HPI and Denies change in libido Neuro Denies syncope Psych Denies change in libido Endo Denies change in libido Physical Exam Const General: cooperative, healthy appearing, comfortable and no acute distress Orientation/consciousness: patient oriented x3 HEENT Face and sinus: Yes normal facial exam Mouth: moist mucous membranes Neck Neck: Yes normal visual inspection, Yes full ROM and Yes trachea midline Chest Chest palpation & inspection: normal inspection of the chest Resp Effort & Inspection: normal respiratory effort, able to speak in complete sentences and no respiratory distress GI Inspection: Yes normal to inspection Back/Spine/Pelvis Cervical Spine: normal cervical lordosis Thoracic/Lumbar Spine: thoracic and lumbar spine normal to inspection Skin General skin exam: no rashes or lesions noted Neuro General: patient oriented x3, gait normal, tone normal and moves all extremities Extrem General: Yes normal to inspection and Yes capillary refill normal Office Meds Eligard (6 month) 45 mg (6 month) subcutaneous syringe Performing Provider: Kevin Escamilla MD Performing [facility] Administered by: Geovanna Daniel RN on 10/04/23 11:25 Dose Route Admin Location Dispensed Lot Number Expiration Date [facility] [employer] 45 mg subcut right arm 45 mg [id number] 08/01/24 57070-286-58 [employer]. Assessment & Plan Assessment & Plan (1) Prostate cancer: Comment: High Grade Code(s): C61 - Malignant neoplasm of prostate Plan Three month follow-up lab work Orders: Orders AMB Leuprolide Injection - Practice Supplied Today C61 - Malignant neoplasm of prostate Prostate Specific Antigen 3 Months C61 - Malignant neoplasm of prostate Testosterone, Total 3 Months C61 - Malignant neoplasm of prostate Hemoglobin A1c 3 Months C61 - Malignant neoplasm of prostate, E11.9 - Type 2 diabetes mellitus without complications Medications: New Eligard (6 month) (leuprolide acetate (6 month)) 45 mg subcut ONCE 1 ea 0RF NS C61 - Malignant neoplasm of prostate Patient Instructions: Imaging studies, laboratory and physical exam results were discussed and reviewed in detail. No major barriers to patient understanding were identified. An opportunity to ask questions regarding the treatment plan was provided. All questions were answered. The patient expressed understanding and agreement with the above treatment plan. The patient is aware they should contact our office by phone for worsening of their current condition or the appearance of new urologic symptoms. Compliance is encouraged with any medications and followup testing that is ordered. It is a privilege to participate in the urologic care of your patient. If you have any questions or concerns regarding treatment for the above conditions, or other urologic issues, please do not hesitate to contact me. The office telephone contact is [phone]. This note is constructed using voice recognition software. While every effort has been made to ensure accuracy grade setter errors may have been included. Yours sincerely, Dr Kevin Escamilla MD, [facility] - Urology Providers of Expert, Compassionate Care for the Genitourinary System Coding Level of Care Code Est Pt Level 3 (50673) Diagnoses Prostate cancer C61
== END 2023-10-04 11:40 | disposition home or self-care (01) ==
PROVIDERS: PCP Internal Medicine; Visit Provider Urology
DX: C61 Malignant neoplasm of prostate (principal)
CPT/HCPCS: 99213

== ENCOUNTER → 2023-10-04 11:01 | Outpatient (BNVA) | payer OTHER, SELFPAY | PROVIDERS: PCP Internal Medicine; Visit Provider Urology | DX: C61 Malignant neoplasm of prostate (principal); Z51.81 Encounter for therapeutic drug level monitoring; Z87.442 Personal history of urinary calculi | CPT/HCPCS: 96402; J9217 ==

== ENCOUNTER 2023-12-25 07:26 | Outpatient (REF) | payer OTHER, SELFPAY ==
[2023-12-25 08:24] LABS: Estimated Average Glucose 148 mg/dL; Hemoglobin A1c % 6.8 % (<6.0)
[2023-12-25 09:16] LABS: Prostate Specific Antigen < 0.10 ng/mL (<0.05-4.0)
[2023-12-31 01:59] LABS: Testosterone, Total 3 ng/dL (250-1100)
== END 2023-12-25 07:27 | disposition home or self-care (01) ==
LOC: HO.LAB 07:26
PROVIDERS: PCP Internal Medicine; Visit Provider Urology
DX: C61 Malignant neoplasm of prostate (principal); E11.9 Type 2 diabetes mellitus without complications; Z12.5 Encounter for screening for malignant neoplasm of prostate
CPT/HCPCS: 36415; 83036; 84153; 84403

== ENCOUNTER 2024-01-03 10:33 | Outpatient (AMB) | payer OTHER, SELFPAY ==
--- OUTSIDE RECORDS SUMMARY | 2024-01-03 10:35 | XMS_ITS | Continuity of Care Document ---
Author Organization [facility] Address [address] [place] [address]- Care Team Providers Care Surveyor Name Role Phone Huang EVANS MD, Hasmukh Mi Primary Care Physician [phone] [place]counter [facility] [place] Date(s): 04/02/23 - 12/22/23 [facility] [address] [place] [address]- Discharge Disposition: A-D/C Home Attending Physician: Gt Irizarry MD, Ricco Aquino Admitting Physician: Michael ROBBINS, Solomon Menard Referring Physician: Kevin Escamilla MD Allergies, Adverse Reactions, Alerts Substance Reaction Severity Status Demerol hallucinations Active Medications abiraterone 250 mg oral tablet See Instructions, TAKE 4 TABLETS (1,000MG) BY MOUTH ONCE DAILY ON AN EMPTY STOMACH 1 HOUR BEFORE OR2 HOURS AFTER A MEAL, # 120 tablet, 2 Refills, Maintenance, 09/30/23 9:46:00 EDT, [facility], 180, cm, 09/27/23 14:24:00 EDT, Height,... Start Date: 09/30/23 Status: Ordered Amlodipine = 5 mg, By Mouth, Daily, 0 Refills, Maintenance, 10/03/23 9:22:00 EDT, Partial fill upon patient request if the prescription is for a schedule II opioid drug. Start Date: 10/03/23 Status: Ordered atorvastatin 20 mg oral tablet 1 tablet = 20 mg, By Mouth, Daily in AM, 0 Refills, Maintenance, 04/16/19 9:40:54 EDT, Tablet Start Date: 04/16/19 Status: Ordered calcium (as carbonate)-vitamin D 500 mg-400 intl units oral tablet, chewable 1 tablet, Chew, 2 times a day, # 180 tablet, 1 Refills, Maintenance, 06/07/23 9:12:00 EST, Chew Tablet, [facility]/pharmacy #[id number], Partial fill upon patient request if the prescription is for a schedule II opioid drug., 1 tablet Chew 2 times a day,x90 days,... Start Date: 06/07/23 Stop Date: 12/04/23 Status: Ordered finasteride 5 mg oral tablet 1 tablet = 5 mg, By Mouth, Daily, # 90 tablet, 0 Refills, Maintenance, 05/16/23 11:19:00 EST, Tablet, Partial fill upon patient request if the prescription is for a schedule II opioid drug. Start Date: 05/16/23 Status: Ordered hydrochlorothiazide 25 mg oral tablet 25 mg, 1, tablet, By Mouth, Daily in AM, Refills 0, Maintenance, 04/16/19 9:40:38 EDT Start Date: 04/16/19 Status: Ordered nadolol 80 mg oral tablet 1 tablet = 80 mg, By Mouth, Daily in AM, 0 Refills, Maintenance, 04/16/19 9:40:20 EDT, Tablet Start Date: 04/16/19 Status: Ordered potassium chloride 20 mEq oral tablet, extended release 1 tablet = 20 mEq, By Mouth, Daily, # 5 tablet, 0 Refills, Maintenance, 09/30/23 9:54:00 EDT, [facility]/pharmacy #[id number], Partial fill upon patient request if the prescription is for a schedule II opioid drug., 180, cm, 09/27/23 14:24:00 EDT, Height, 136.9, k... Start Date: 09/30/23 Stop Date: 10/05/23 Status: Ordered predniSONE 5 mg oral tablet 1 tablet = 5 mg, By Mouth, Daily, # 30 tablet, 2 Refills, Maintenance, 12/29/23 9:46:00 EDT, Tablet, [facility]/pharmacy #[id number], Partial fill upon patient request if the prescription is for a schedule II opioid drug., 180, cm, 10/03/23 9:15:00 EDT, Height, 13... Start Date: 12/29/23 Stop Date: 03/28/24 Status: Ordered predniSONE 5 mg oral tablet 1 tablet = 5 mg, By Mouth, Daily, for 30 days, # 30 tablet, 2 Refills, Hard Stop 12/29/23 9:46:00 EDT, 04/01/24 9:46:00 EDT, Tablet, [facility], Partial fill upon patient request if the prescription is for a schedule II opioid drug., 18... Start Date: 09/30/23 Stop Date: 12/29/23 Status: Ordered prochlorperazine 10 mg oral tablet 1 tablet = 10 mg, By Mouth, Every 8 hours, PRN as needed for nausea/vomiting, not to exceed 40 mg/day, # 30 tablet, 1 Refills, Maintenance, 10/03/23 10:05:00 EDT, [facility]/pharmacy #[id number], Partial fill upon patient request if the prescription is for a sched... Start Date: 10/03/23 Stop Date: 12/02/23 Status: Ordered Problem List Condition Confirmation Course Effective Dates Status Health St atus Informant HLD (hyperlipidemia) Confirmed Active HTN (hypertension) Confirmed Active Prostate cancer Confirmed Active Severe obesity Confirmed Active DM type 2 (diabetes mellitus, type 2) Confirmed Active Vital Signs Most recent to oldest [Reference Range]: 1 2 3 Height 180 cm (10/03/23 9:15 AM) 180 cm (09/27/23 2:24 PM) 180 cm (07/04/23 8:49 AM) Weight 136.3 kg (10/03/23 9:15 AM) 136.9 kg (09/27/23 2:24 PM) 141.5 kg (07/04/23 8:49 AM) Oxygen Saturation [94-100 %] 95 % (10/03/23 9:15 AM) 98 % (09/27/23 2:24 PM) 97 % (07/04/23 8:49 AM) Pulse Rate [55-90 bpm] 66 bpm (10/03/23 9:15 AM) 69 bpm (09/27/23 2:24 PM) 65 bpm (07/04/23 8:49 AM) Body Mass Index [18.5-24.99 kg/m2] 42.07 kg/m2 *>HHI* (10/03/23 9:15 AM) 42.25 kg/m2 *>HHI* (09/27/23 2:24 PM) 43.67 kg/m2 *>HHI* (07/04/23 8:49 AM) Blood Pressure [90-138/55-84 mm Hg] 144/67mm Hg *H* (10/03/23 9:15 AM) 142/71mm Hg *H* (09/27/23 2:24 PM) 142/78mm Hg *H* (07/04/23 8:49 AM) Temperature [96.8-100.4 DegF] 96.5 DegF *L* (10/03/23 9:15 AM) 97.5 DegF (09/27/23 2:24 PM) 97.1 DegF (07/04/23 8:49 AM) Mode of Delivery (Oxygen) Room air (10/03/23 9:15 AM) Room air (09/27/23 2:24 PM) Room air (07/04/23 8:49 AM) Blood pressure sites Arm, right (10/03/23 9:15 AM) Arm, right (09/27/23 2:24 PM) Arm, right (07/04/23 8:49 AM) Temperature Route Oral (10/03/23 9:15 AM) Oral (09/27/23 2:24 PM) Oral (07/04/23 8:49 AM) Dry Weight 136.3 kg (10/03/23 9:15 AM) 136.9 kg (09/27/23 2:24 PM) 141.5 kg (07/04/23 8:49 AM) Weight Obtained Via Standing scale (10/03/23 9:15 AM) Standing scale (09/27/23 2:24 PM) Standing scale (07/04/23 8:49 AM) Dry Weight Obtained Via Standing scale (10/03/23 9:15 AM) Standing scale (09/27/23 2:24 PM) Standing scale (07/04/23 8:49 AM) Social History Social History Type Response Smoking Status Never (less than 100 in lifetime) entered on: 05/02/23 Sex Laboratory * Event Display: Non BH Lab Results Authored Date: * Event Display: Non BH Lab Results Authored Date: Radiology * Event Display: [place] Nuclear Medicine, Non-BH Authored Date: Note * Rachael Urias: PERFORM, SIGN, VERIFY Event Display: Patient Education/Instruction Authored Date: [id number] [facility] *Heme/Onc Adult Clinical Summary Name CLAYTON RUBIO Age 63 Years 1960 PCP Huang EVANS MD, Hasmukh Mi [id number] Visit Date 04/02/2023 10:03:00 Additional Instructions: Scheduled Appointments?? Future Appointments ?No Future Appointments Scheduled Follow-Up Instructions ?? With: Address: When: Ricco Irizarry [address] [place] [address] Hem/[place] [address] Business (1) In 14 weeks 01/09/2024 With: Address: When: Ricco Irizarry [address] [place] [address] Hem/[place] [address] (1) In 15 days 07/04/2023 Diagnosis Malignant neoplasm of prostate; Morbid (severe) obesity due to excess calories Medications: Please continue your medications until treatment is completed or stopped by your provider. Discuss any questions related to medications with your provider. New Medications [id number], [address], [place] [id number], [phone] PROCHLORperazine (prochlorperazine 10 mg oral tablet) 1 tab(s) Oral every 8 hours as needed as needed for nausea/vomiting for 30 Days. not to exceed 40 mg/day. Refills: 1. Next Dose: Medications to Continue Taking That Have Changed These medications were not printed or sent to your pharmacy - Amlodipine 5 Milligram Oral Daily. Next Dose: Medications to Continue with No Changes [id number], [address], [place] [id number], [phone] Calcium And Vitamin D Combination (calcium (as carbonate)-vitamin D 500 mg-400 intl units oral tablet, chewable) 1 tab(s) Chew twice a day for 90 Days. Refills: 1. Next Dose: Potassium Chloride (potassium chloride 20 mEq oral tablet, extended release) 1 tab(s) Oral Daily for 5 Days. Refills: 0. Next Dose: [facility], [address] [facility] [place] [id number], [phone] abiraterone (abiraterone 250 mg oral tablet) TAKE 4 TABLETS (1,000MG) BY MOUTH ONCE DAILY ON AN EMPTY STOMACH 1 HOUR BEFORE OR 2 HOURS AFTER A MEAL. Refills: 2. Next Dose: PredniSONE (predniSONE 5 mg oral tablet) 1 tab(s) Oral Daily for 30 Days. Refills: 2. Next Dose: These medications were not printed or sent to your pharmacy Atorvastatin (atorvastatin 20 mg oral tablet) 1 tab(s) Oral Daily in the morning. Next Dose: Finasteride (finasteride 5 mg oral tablet) 1 tab(s) Oral Daily. Next Dose: Hydrochlorothiazide (hydrochlorothiazide 25 mg oral tablet) 1 tab(s) Oral Daily in the morning. Next Dose: Nadolol (nadolol 80 mg oral tablet) 1 tab(s) Oral Daily in the morning. Next Dose: No Longer Take the Following Medications Citalopram (citalopram 10 mg oral tablet) 1 tab(s) Oral every other day. Patient weaning off med. Lorazepam (Ativan 1 mg oral tablet) 1 tab(s) Oral once as needed as needed for anxiety. [address] scan. Refills: 0. Allergy Info:?? Demerol Medications Given This Visit Future Orders ?No future orders Future Orders ?No future orders Vital Signs Height 180 cm Weight 136.3 kg BMI 42.07 kg/m2 Blood Pressure 144 mm Hg/67 mm Hg Temperature 96.5 DegF Pulse Rate 66 bpm Respiratory Rate 02 Sat Mode of Delivery 95 %/Room air You can now view a summary of your hospital visit from the comfort of your home through a free online portal called [email or web address]. [email or web address] is a website that allows you to securely view your medical information including discharge summary, medications and follow-up visits. ??You can alsosend a secure electronic message to your doctor???s office to request appointments, renew medications or just ask a question. You can enroll at [email or web address] or register during your next office visit. Disclaimer:?? The information provided is of a general nature and is intended to be used in conjunction with the recommendations and advice of your health care practitioner. ??Every effort has been made to ensure that the information provided is accurate and complete at the time it is provided to you however, as your needs change, or, as new ??information becomes available, different or additional instructions may be required. If you have questions, please consult with your primary care provider or pharmacist, as appropriate. ??This information is not intended to serve as substitution for assessment and evaluation by a qualified health care provider. If you do not have a primary care provider, you may find a [facility] provider by calling [facility] Link at [phone]. [facility], in keeping with [facility] guidance, no longer requires face masks for staff, patientsor visitors in most situations. Similar to time spent indoors at other locations, there is the chance that you were exposed to respiratory viruses during your time with us (such as flu or COVID-19).? If you develop symptoms concerning for a viral respiratory infection, please seek testing (and treatment if indicated) from your medical provider or home test kit. For information about the plan of care including goals and instructions for your diagnosis, please see the patient education orders section of this document. Patient Education Materials?? The content of this educational material or handout may have been modified, supplemented, or adapted from its original content and format to support your individualized medical care. * Denise Nielson: PERFORM, SIGN, VERIFY Event Display: Patient Education/Instruction Authored Date: [id number] [facility] *Heme/Onc Adult Clinical Summary Name CLAYTON RUBIO Age 63 Years 1960 PCP Huang EVANS MD, Hasmukh Mi PCP Visit Date 04/02/2023 10:03:00 Additional Instructions: Scheduled Appointments?? Future Appointments ?[facility]Radiology ?[address]??[place],??[place],??[address] ?Phone:??[phone]?Fax:??-- ?Appt. Date:??06/20/2023?10:30 AM ?Scheduled Provider:??[facility] 1 Follow-Up Instructions ?? With: Address: When: Ricco Irizarry [address] [facility] Hem/[place] [address] Business (1) In 15 days 07/04/2023 Diagnosis Malignant neoplasm of prostate; Morbid (severe) obesity due to excess calories Medications: Please continue your medications until treatment is completed or stopped by your provider. Discuss any questions related to medications with your provider. New Medications [id number], [address], [place] [id number], [phone] Calcium And Vitamin D Combination (calcium (as carbonate)-vitamin D 500 mg-400 intl units oral tablet, chewable) 1 tab(s) Chew twice a day for 90 Days. Refills: 1. Next Dose: Lorazepam (Ativan 1 mg oral tablet) 1 tab(s) Oral once as needed as needed for anxiety. [address] scan. Refills: 0. Next Dose: - abiraterone (abiraterone 250 mg oral tablet) 4 tab(s) Oral Daily for 30 Days. Take on an empty stomach (at least 1 hour prior or 2 hours after food). Refills: 0. Next Dose: PredniSONE (predniSONE 5 mg oral tablet) 1 tab(s) Oral Daily for 30 Days. Refills: 0. Next Dose: Medications to Continue with No Changes These medications were not printed or sent to your pharmacy Amlodipine Oral Daily. Next Dose: Atorvastatin (atorvastatin 20 mg oral tablet) 1 tab(s) Oral Daily in the morning. Next Dose: Finasteride (finasteride 5 mg oral tablet) 1 tab(s) Oral Daily. Next Dose: Hydrochlorothiazide (hydrochlorothiazide 25 mg oral tablet) 1 tab(s) Oral Daily in the morning. Next Dose: Nadolol (nadolol 80 mg oral tablet) 1 tab(s) Oral Daily in the morning. Next Dose: No Longer Take the Following Medications Citalopram (citalopram 10 mg oral tablet) 1 tab(s) Oral every other day. Patient weaning off med. Allergy Info:?? Demerol Medications Given This Visit Future Orders ?No future orders Vital Signs Height 180 cm Weight 145.8 kg BMI 45 kg/m2 Blood Pressure 123 mm Hg/60 mm Hg Temperature 97.5 DegF Pulse Rate 66 bpm Respiratory Rate 02 Sat Mode of Delivery 96 %/Room air You can now view a summary of your hospital visit from the comfort of your home through a free online portal called [email or web address]. [email or web address] is a website that allows you to securely view your medical information including discharge summary, medications and follow-up visits. ??You can alsosend a secure electronic message to your doctor???s office to request appointments, renew medications or just ask a question. You can enroll at [email or web address] or register during your next office visit. Disclaimer:?? The information provided is of a general nature and is intended to be used in conjunction with the recommendations and advice of your health care practitioner. ??Every effort has been made to ensure that the information provided is accurate and complete at the time it is provided to you however, as your needs change, or, as new ??information becomes available, different or additional instructions may be required. If you have questions, please consult with your primary care provider or pharmacist, as appropriate. ??This information is not intended to serve as substitution for assessment and evaluation by a qualified health care provider. If you do not have a primary care provider, you may find a [facility] provider by calling [facility] Link at [phone]. [facility], in keeping with [facility] guidance, no longer requires face masks for staff, patientsor visitors in most situations. Similar to time spent indoors at other locations, there is the chance that you were exposed to respiratory viruses during your time with us (such as flu or COVID-19).? If you develop symptoms concerning for a viral respiratory infection, please seek testing (and treatment if indicated) from your medical provider or home test kit. For information about the plan of care including goals and instructions for your diagnosis, please see the patient education orders section of this document. Patient Education Materials?? The content of this educational material or handout may have been modified, supplemented, or adapted from its original content and format to support your individualized medical care. Patient Care team information Care Team Personnel Name: Hasmukh Encinas III, MD Position: Reference Physician Member Role: PCP Address: Address: [address] [place] [address]- Care Team Related Persons Name: TORIE RUBIO Address: home [address] [place] [address] Name: MARCELLA RUBIO Address: home [address] [place] [address]
--- OUTSIDE RECORDS SUMMARY | 2024-01-03 10:35 | XMS_ITS | Continuity of Care Document ---
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 [place] Date(s): 05/17/23 - 06/16/[address] [address]- Allergies, Adverse Reactions, Alerts Substance Reaction Severity Status Demerol hallucinations Active Medications abiraterone 250 mg oral tablet 4 tablet = 1,000 mg, By Mouth, Daily, Take on an empty stomach (at least 1 hour prior or 2 hours after food), # 120 tablet, 0 Refills, Maintenance, 05/16/23 11:30:00 EST, Tablet, Partial fill upon patient request if the prescription is for a schedule... Start Date: 05/16/23 Stop Date: 06/15/23 Status: Ordered Amlodipine By Mouth, Daily, 0 Refills, Maintenance, 05/02/23 8:57:00 EDT, Partial fill upon patient request ifthe prescription is for a schedule II opioid drug. Start Date: 05/02/23 Status: Ordered Ativan 1 mg oral tablet 1 tablet = 1 mg, By Mouth, Once, PRN as needed for anxiety, [address] scan, # 1 tablet, 0 Refills, Soft Stop, 05/16/23 11:23:00 EST, Tablet, [facility]/pharmacy #[id number], Partial fill upon patient request if the prescription is for a schedule II opio... Start Date: 05/16/23 Status: Ordered atorvastatin 20 mg oral tablet 1 tablet = 20 mg, By Mouth, Daily in AM, 0 Refills, Maintenance, 04/16/19 9:40:54 EDT, Tablet Start Date: 04/16/19 Status: Ordered calcium (as carbonate)-vitamin D 500 mg-400 intl units oral tablet, chewable 1 tablet, Chew, 2 times a day, # 180 tablet, 1 Refills, Maintenance, 06/07/23 9:12:00 EST, Chew Tablet, [facility]/pharmacy #[id number], Partial fill upon patient request if [...] EDT, Tablet Start Date: 04/16/19 Status: Ordered predniSONE 5 mg oral tablet 1 tablet = 5 mg, By Mouth, Daily, # 30 tablet, 0 Refills, Maintenance, 05/16/23 11:30:00 EST, Tablet, Partial fill upon patient request if the prescription is for a schedule II opioid drug. Start Date: 05/16/23 Stop Date: 06/15/23 Status: Ordered Problem List Condition Confirmation Course Effective Dates Status Health St atus Informant HLD (hyperlipidemia) Confirmed Active HTN (hypertension) Confirmed Active Prostate cancer Confirmed Active Severe obesity Confirmed Active Social History Social History Type Response Smoking Status Never (less than 100 in lifetime) entered on: 05/02/23 Sex Patient Care team information Care Team Personnel Name: Hasmukh Encinas III, MD Position: Reference Physician Member Role: PCP Address: Address: [address] [place] [address]- Care Team Related Persons Name: TORIE RUBIO Address: home [address] [place] [address] Name: MARCELLA RUBIO Address: home [address] [place] [address]
--- OUTSIDE RECORDS SUMMARY | 2024-01-03 10:35 | XMS_ITS | Continuity of Care Document ---
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 Name Role Phone Huang EVANS MD, Hasmukh Mi Primary Care Physician Encounter [facility] Date(s): 05/17/23 - 06/16/[address] [address] Allergies, Adverse Reactions, Alerts Substance Reaction Severity [...] Refills, Soft Stop, 05/16/23 11:23:00 EST, Tablet, [facility]/pharmacy #[id number], Partial fill upon patient request if the [...] Refills, Maintenance, 06/07/23 9:12:00 EST, Chew Tablet, [facility]/pharmacy #[id number], Partial fill upon patient request if [...] Reference Physician Member Role: PCP Address: Address: [address] [place] [address]- Care Team Related Persons Name: TORIE RUBIO Address: home [address] [place] [address] Name: MARCELLA RUBIO Address: home [address] [place] [address]
--- NOTE | 2024-01-03 11:07 | A.OFFVIS_ITS ---
Intake Visit Reasons: 3M A1C/PSA/Testo(pending) Intake Note: Patient is Present for Telephone Follow Up Urology Med: Finasteride, Abiraterone Antibiotic Allergy: None Blood Thinner:None Allergies meperidine [Demerol] Allergy (Unknown, Verified 10/04/23 11:07) Unknown HPI Comments Details: Mr Hagen is a very pleasant male. He is a patient of Dr Encinas. He is seen for the following urologic conditions. 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 In this trial patients with unfavorable intermediate risk or low volume high risk prostate cancer (E ligibility included 2+ intermediate or 1 high NCCN risk factors and no metastatic disease) were treated with 6 months of abiraterone, prednisone, and depot LHRH agonist. The 5-year bPFS was 92%. This study suggested that a short course of complete androgen blockade (abiraterone with prednisone and LHRH agonist) and definitive RT may be beneficial without long-term toxicity as compared to 2-3 years of abiraterone and ADT. - Updated 5-year results for short course abiraterone acetate and LHRH agonist for unfavorable intermediate and favorable high-risk prostate cancer. Prostate Cancer Prostatic Dis. 2023Aug 22. doi: 10.1038/a95678-208-96969-5 Due to competing pharmaceutical companies modern combinations have yet to be studied in a randomized fashion Working at [employer] - greatly improved his outlook on life Prostate Cancer - High risk, clinically localized - external beam radiotherapy with radiation oncology Dr. Rodriguez [facility], Medical Oncology [facility] Dr. Love 03/23 GnRH, 09/21 GnRH Diagnosed 01/20 Dr Escamilla No family history of prostate cancer TRUS - 7/23 55gm PSA 4.7 F 11% on finasteride Davis score: 5+4=9 (left apex lateral, left apex medial), 4+5=9 (left mid lateral, left mid medial), 3+5=8 (Left base medial), 3+4=7 (left base lateral) Tumor quantitation: Number cores positive: 6 Total number of cores: 12 % of tissue involved: 40% (all on the left) Periprostatic fat inv.: Not identified Seminal vesicle inv.: Not identified Perineural inv.: Present LVI: Not identified Staging 02/20 Bone scan negative 02/20 MRI 2 cm lesion, abutting capsule, no evidence of seminal vesicle involvement, 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 PSA 06/18 4.8, 08/20 3.8, 08/21 4.4, 03/21 7.2, 05/21 4.5 finasteride, 12/21 4.7 11% Cystoscopy - 05/21 open bladder neck with high bladder lip Nephrolithiasis/Urolithiasis: They are here for further evaluation of nephrolithiasis Urolithiasis was diagnosed 2010. The patient previously had kidney stones whose composition w unknown. Laboratory investigations include no recent labs. 24 Hour urine evaluation none on file. Prior treatment(s) include observation, with dietary advice to increase fluids, decrease salt and watch protein intake , ESWL 04/10 right side. Prior imaging includes November 2015 a KUB x-ray, showing no evidence of stones December 2016, a KUB x-ray, showing no evidence of stones 01/15 , a renal ultrasound, right 2cm cyst, left 4x3mm stone 08/19 , a renal ultrasound, stable cyst and stoned in left kidney 08/20 , a renal ultrasound, stable cysts and no stones - 03/21 renal ultrasound bilateral renal cyst right 5 cm, left 2 cm. No stone - 01/19 renal ultrasound stable cysts, question 4 mm right stone UA today shows 5.5-6.0, low pH suggestive of higher protein load, high specific gravity suggestive of relative dehydration. Current therapeutic plan will be to continue with imaging surveillance at appropriate interval [facility] Medical History Elevated PSA Benign prostatic hyperplasia with lower urinary tract symptoms Poor urinary stream History of urinary hesitancy Weak urinary stream Surgical History H/O hand surgery Hx of lithotripsy Family History Father No problems noted. Mother Cancer Arthritis of knee Review of Systems Const All systems reviewed & are unremarkable except as noted in HPI and below Reports no additional complaints Resp Reports no additional complaints GI Reports no additional complaints Reports as per HPI Musc Reports no additional complaints Physical Exam Telemedicine evaluation Appropriate responses Regular breathing rate and rhythm HEENT Head: Yes normal to inspection Ears: hearing grossly normal bilaterally Eyes General: appearance normal, both eyes and all related structures Neck Neck: Yes normal visual inspection Chest Chest palpation & inspection: normal inspection of the chest Resp Effort & Inspection: normal respiratory effort and able to speak in complete sentences Telehealth Telehealth Location of provider rendering services: practice address Location of patient: address on file Patient Identification confirmed using: Name, : Yes Telehealth method: video Patient verbally consented to treatment: Yes Patient verbally consented to billing insurance company: Yes Patient informed of any privacy concerns related to visit: Yes Assessment & Plan Assessment & Plan (1) Prostate cancer: Comment: High Grade Code(s): C61 - Malignant neoplasm of prostate Category: Medical (2) Nocturia more than twice per night: Code(s): R35.1 - Nocturia Category: Medical Plan Three-month follow-up lab work with final GnRH Orders: Orders Testosterone, Total 3 Months C61 - Malignant neoplasm of prostate Prostate Specific Antigen 3 Months C61 - Malignant neoplasm of prostate Patient Instructions: Imaging studies, laboratory and physical exam results were discussed and reviewed in detail. No major barriers to patient understanding were identified. An opportunity to ask questions regarding the treatment plan was provided. All questions were answered. The patient expressed understanding and agreement with the above treatment plan. The patient is aware they should contact our office by phone for worsening of their current condition or the appearance of new urologic symptoms. Compliance is encouraged with any medications and followup testing that is ordered. It is a privilege to participate in the urologic care of your patient. If you have any questions or concerns regarding treatment for the above conditions, or other urologic issues, please do not hesitate to contact me. The office telephone contact is [phone]. This note is constructed using voice recognition software. While every effort has been made to ensure accuracy engineering technical analyst errors may have been included. Yours sincerely, Dr Kevin Escamilla MD, [facility] - Urology Providers of Expert, Compassionate Care for the Genitourinary System Coding Level of Care Code Tele Est Pt Level 3 (18544) Complex EM visit Add On G2211 Diagnoses Prostate cancer C61 Nocturia more than twice per night R35.1
== END 2024-01-03 13:22 | disposition home or self-care (01) ==
LOC: HO.HUSH 10:33
PROVIDERS: PCP Internal Medicine; Visit Provider Urology
DX: C61 Malignant neoplasm of prostate (principal); R35.1 Nocturia
CPT/HCPCS: 99213

== ENCOUNTER → 2024-01-03 10:33 | Outpatient (BNVA) | payer OTHER, SELFPAY | PROVIDERS: PCP Internal Medicine; Visit Provider Urology ==

== ENCOUNTER 2024-01-21 14:29 | Outpatient (REF) | payer OTHER, SELFPAY ==
--- NOTE | ~2024-01-21 | US_ITS ---
EXAMINATION: US RETROPERITONEAL LIMITED (RENAL ONLY) CLINICAL INFORMATION: Calculus of kidney. COMPARISON: 01/17/2022 TECHNIQUE: Real-time sonographic evaluation FINDINGS: RIGHT KIDNEY: 14.0 x 5.6 x 6.8 cm (SAG x AP x TRV). The kidney is normal in size, contour, and echogenicity. Renal cortical thickness is normal. No calculi or focal solid parenchymal lesions. There is a cyst in the lower pole of the right kidney at 7 x 5 x 7 cm which appears probably simple. No further workup needed. No hydronephrosis. LEFT KIDNEY: 13.3 x 7.0 x 4.9. cm (SAG x AP x TRV). The kidney is normal in size, contour, and echogenicity. Renal cortical thickness is normal. No calculi or focal parenchymal lesions. No hydronephrosis. US/US renal BI IMPRESSION: Right renal cyst. No suspicious lesion. No calcifications are seen. No hydronephrosis..
== END 2024-01-21 14:30 | disposition home or self-care (01) ==
LOC: HO.US 14:29
PROVIDERS: PCP Internal Medicine; Visit Provider Urology
DX: N20.0 Calculus of kidney (principal); N40.1 Benign prostatic hyperplasia with lower urinary tract symptoms
CPT/HCPCS: 76775

== ENCOUNTER 2024-03-24 16:07 | Outpatient (REF) | payer OTHER, SELFPAY ==
[2024-03-24 18:25] LABS: Prostate Specific Antigen < 0.10 ng/mL (<0.05-4.0)
[2024-03-28 16:34] LABS: Testosterone, Total 7 ng/dL (250-1100)
== END 2024-03-24 16:08 | disposition home or self-care (01) ==
LOC: HO.LAB 16:07
PROVIDERS: PCP Internal Medicine; Visit Provider Urology
DX: C61 Malignant neoplasm of prostate (principal); Z12.5 Encounter for screening for malignant neoplasm of prostate
CPT/HCPCS: 36415; 84153; 84403

== ENCOUNTER 2024-03-31 10:17 | Outpatient (AMB) | payer OTHER, SELFPAY ==
--- NOTE | 2024-03-31 10:19 | A.OFFVIS_ITS ---
Intake Visit Reasons: 3M PSA/Testo/GnRH(set)PA Set Intake Note: Patient is Present for Follow Up PSA/Testo/Eligard Injection Urology Medication: Finasteride Patient states he is no longer on Abiraterone Antibiotic Allergies:None Blood Thinners:None Recent LABS: 03/24/24 PSA: <0.10 Testosterone: 7 Recent Hemoglobin A1C: 11/2023- 6.8 Proof Technician Helper Required: No Accompanied by: Self / Same As Patient Allergies meperidine [Demerol] Allergy (Unknown, Verified 03/31/24 10:22) Unknown HPI Comments Details: Mr Hagen is a very pleasant male. He is a patient of Dr Encinas. He is seen for the following urologic conditions. - lower urinary tract symptoms - nephrolithiasis Notes that he can tell when GnRH is wearing off because he stops being as em otional. 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 In this trial patients with unfavorable intermediate risk or low volume high risk prostate cancer (Eligibility included 2+ intermediate or 1 high NCCN risk factors and no metastatic disease) were treated with 6 months of abiraterone, prednisone, and depot LHRH agonist. The 5-year bPFS was 92%. This study suggested that a short course of complete androgen blockade (abiraterone with prednisone and LHRH agonist) and definitive RT may be beneficial without long-term toxicity as compared to 2-3 years of abiraterone and ADT. - Updated 5-year results for short course abiraterone acetate and LHRH agonist for unfavorable intermediate and favorable high-risk prostate cancer. Prostate Cancer Prostatic Dis. 2024 Feb 22. doi: 10.1038/[id number] Due to competing pharmaceutical companies modern combinations have yet to be bijan in a randomized fashion Working at [employer] - greatly improved his outlook on life - had an issue with a female co-worker Prostate Cancer - High risk, clinically localized - external beam radiotherapy with radiation oncology Dr. Rodriguez [facility], Medical Oncology [facility] Dr. Love 03/23 GnRH, 09/21 GnRH Diagnosed 01/20 Dr Escamilla No family history of prostate cancer TRUS - 01/20 55gm PSA 4.7 F 11% on finasteride [place] score: 5+4=9 (left apex lateral, left apex medial), 4+5=9 (left mid lateral, left mid medial), 3+5=8 (Left base medial), 3+4=7 (left base lateral) Tumor quantitation: Number cores positive: 6 Total number of cores: 12 % of tissue involved: 40% (all on the left) Periprostatic fat inv.: Not identified Seminal vesicle inv.: Not identified Per ineural inv.: Present LVI: Not identified Staging 02/20 Bone scan negative 02/20 MRI 2 cm lesion, abutting capsule, no evidence of seminal vesicle involvement, likely neurovascular bundle involvement Lower Urinary Tract Symptoms: Current visit is for further evaluation of, lower urinary tract symptoms, predominate obstructive symptoms - PSA decline on finasteride from 7.2-4.5 Current treatment includes medication- finasteride Prior medications - oxybutynin with significant dehydration, dry mouth, tolterodine minimal benefit - Myrbetriq too expensive Prostate Symptom Score 8/18 , Mild (0-8), Bother 2 Symptoms include / , nocturia (>2), weak stream, and are improving. PSA 06/18 4.8, 08/20 3.8, 08/21 4.4, 03/21 7.2, 05/21 4.5 finasteride, 12/21 4.7 11% Cystoscopy - 05/21 open bladder neck with high bladder lip Nephrolithiasis/Urolithiasis: They are here for further evaluation of nephrolithiasis Urolithiasis was diagnosed 2010. The patient previously had kidney stones whose composition w unknown. Laboratory investigations include no recent labs. 24 Hour urine evaluation none on file. Prior treatment(s) include observation, with dietary advice to increase fluids, decrease salt and watch protein intake , ESWL 04/10 right side. Prior imaging includes November 2015 a KUB x-ray, showing no evidence of stones December 2016, a KUB x-ray, showing no evidence of stones 01/15 , a renal ultrasound, right 2cm cyst, left 4x3mm stone 08/19 , a renal ultrasound, stable cyst and stoned in left kidney 08/20 , a renal ultrasound, stable cysts and no stones - 03/21 renal ultrasound bilateral renal cyst right 5 cm, left 2 cm. No stone - 01/19 renal ultrasound stable cysts, question 4 mm right stone UA today shows 5.5-6.0, low pH suggestive of higher protein load, high specific gravity suggestive of relative dehydration. Current therapeutic plan will be to continue with imaging surveillance at appropriate interval [facility] Medical History Elevated PSA Benign prostatic hyperplasia with lower urinary tract symptoms Poor urinary stream History of urinary hesitancy Weak urinary stream Surgical History H/O hand surgery Hx of lithotripsy Family History Father No problems noted. Mother Cancer Arthritis of knee Review of Systems Const Denies chills and Denies fever(s) Card Reports no additional complaints and Denies syncope Resp Denies cough GI Denies abdominal pain and Denies heartburn Reports as per HPI and Denies change in libido Neuro Denies syncope Psych Denies change in libido Endo Denies change in libido Physical Exam Const General: cooperative, healthy appearing, comfortable and no acute distress Orientation/consciousness: patient oriented x3 HEENT Face and sinus: Yes normal facial exam Mouth: moist mucous membranes Neck Neck: Yes normal visual inspection, Yes full ROM and Yes trachea midline Chest Chest palpation & inspection: normal inspection of the chest Resp Effort & Inspection: normal respiratory effort, able to speak in complete sentences and no respiratory distress GI Inspection: Yes normal to inspection Back/Spine/Pelvis Cervical Spine: normal cervical lordosis Thoracic/Lumbar Spine: thoracic and lumbar spine normal to inspection Skin General skin exam: no rashes or lesions noted Neuro General: patient oriented x3, gait normal, tone normal and moves all extremities Extrem General: Yes normal to inspection and Yes capillary refill normal Office Meds Eligard (6 month) 45 mg (6 month) subcutaneous syringe Performing Provider: Kevin Escamilla MD Performing Location[facility] Administered by: Sherif Elliott LPN on 03/31/24 10:43 Dose Route Admin Location Dispensed Lot Number Expiration Date NDC Spoke Maker 45 mg subcut left arm 45 mg [id number] 05/01/25 30681-359-94 [employer]. Assessment & Plan Assessment & Plan (1) Prostate cancer: Comment: High Grade Code(s): C61 - Malignant neoplasm of prostate Category: Medical (2) Nocturia more than twice per night: Code(s): R35.1 - Nocturia Category: Medical Plan Three-month follow-up labs Orders: Orders AMB Leuprolide Injection - Practice Supplied Today C61 - Malignant neoplasm of prostate, N40.1 - Benign prostatic hyperplasia with lower urinary tract symptoms, R97.20 - Elevated prostate specific antigen [PSA] Medications: New Eligard (6 month) (leuprolide acetate (6 month)) 45 mg subcut ONCE 1 ea 0RF NS C61 - Malignant neoplasm of prostate, N40.1 - Benign prostatic hyperplasia with lower urinary tract symptoms, R97.20 - Elevated prostate specific antigen [PSA] Patient Instructions: Imaging studies, laboratory and physical exam results were discussed and reviewed in detail. No major barriers to patient understanding were identified. An opportunity to ask questions regarding the treatment plan was provided. All questions were answered. The patient expressed understanding and agreement with the above treatment plan. The patient is aware they should contact our office by phone for worsening of th eir current condition or the appearance of new urologic symptoms. Compliance is encouraged with any medications and followup testing that is ordered. It is a privilege to participate in the urologic care of your patient. If you have any questions or concerns regarding treatment for the above conditions, or other urologic issues, please do not hesitate to contact me. The office telephone contact is [phone]. This note is constructed using voice recognition software. While every effort has been made to ensure accuracy winding operator errors may have been included. Yours sincerely, Dr Kevin Escamilla MD, [facility] - Urology Providers of Expert, Compassionate Care for the Genitourinary System Coding Level of Care Code Est Pt Level 3 (44405) Diagnoses Prostate cancer C61 Nocturia more than twice per night R35.1
== END 2024-03-31 11:03 | disposition home or self-care (01) ==
PROVIDERS: PCP Internal Medicine; Visit Provider Urology
DX: C61 Malignant neoplasm of prostate (principal); N40.1 Benign prostatic hyperplasia with lower urinary tract symptoms; R97.20 Elevated prostate specific antigen [PSA]; R35.1 Nocturia
CPT/HCPCS: 99213

== ENCOUNTER → 2024-03-31 10:17 | Outpatient (BNVA) | payer OTHER, SELFPAY | PROVIDERS: PCP Internal Medicine; Visit Provider Urology | DX: C61 Malignant neoplasm of prostate (principal); N40.1 Benign prostatic hyperplasia with lower urinary tract symptoms; R35.1 Nocturia | CPT/HCPCS: 96402; J9217 ==

== ENCOUNTER 2024-07-03 10:21 | Outpatient (REF) | payer OTHER, SELFPAY ==
--- OUTSIDE RECORDS SUMMARY | 2024-07-03 11:45 | XMS_ITS | Continuity of Care Document ---
Author Organization [facility] Address [address] [place] [address]- Care Team Providers Care Card Lacer Name Role Phone Huang EVANS MD, Hasmukh Mi Primary Care Physician [phone] [id number] Date(s): 04/02/24 - 06/03/24 [facility] [address] [place] [id number] Discharge Disposition: A-D/C Home Attending Physician: Gt Irizarry MD, Ricco Aquino Admitting Physician: Solomon Rodriguez MD Referring Physician: Andi ROBBINS, Kevin Fisher Encounter Type: Disch Recurring OP Allergies, Adverse Reactions, Alerts Substance Criticality Severity Reaction Reaction Severity Status Demerol hallucinations Act kosta Medications Amlodipine = 5 mg, By Mouth, Daily, 0 Refills, Maintenance, 10/03/23 9:22:00 AM EDT, Partial fill upon patient request if the prescription is for a schedule II opioid drug. Start Date: 10/03/23 Status: Ordered Repeat number: 1 atorvastatin 20 mg oral tablet 1 tablet = 20 mg, By Mouth, Daily in AM, 0 Refills, Maintenance, 04/16/19 9:40:54 AM EDT, Tablet Start Date: 04/16/19 Status: Ordered Repeat number: 1 calcium (as carbonate)-vitamin D 500 mg-400 intl units oral tablet, chewable 1 tablet, By Mouth, 2 times a day, CHEW., # 180 tablet, 2 Refills, Maintenance, 01/06/24 9:45:00 AM EDT, [facility], 90, CHEW 1 TABLET BY MOUTH TWICE A DAY, 180, cm, 10/03/23 9:15:00 EDT, Height, 136.3, kg, 10/03/23 9:15:00 EDT, Dry Weight Start Date: 01/06/24 Status: Ordered Quantity: 180.0 Unit: tablet Repeat number: 1 finasteride 5 mg oral tablet 1 tablet = 5 mg, By Mouth, Daily, # 90 tablet, 0 Refills, Maintenance, 05/16/23 11:19:00 AM EST, Tablet, Partial fill upon patient request if the prescription is for a schedule II opioid drug. Start Date: 05/16/23 Status: Ordered Quantity: 90.0 Unit: tablet Repeat number: 1 hydrochlorothiazide 25 mg oral tablet 25 mg, 1, tablet, By Mouth, Daily in AM, Refills 0, Maintenance, 04/16/19 9:40:38 AM EDT Start Date: 04/16/19 Status: Ordered Repeat number: 1 nadolol 80 mg oral tablet 1 tablet = 80 mg, By Mouth, Daily in AM, 0 Refills, Maintenance, 04/16/19 9:40:20 AM EDT, Tablet Start Date: 04/16/19 Status: Ordered Repeat number: 1 prochlorperazine 10 mg oral tablet 1 tablet = 10 mg, By Mouth, Every 8 hours, PRN as needed for nausea/vomiting, not to exceed 40 mg/day, # 30 tablet, 1 Refills, Maintenance, 01/09/24 9:44:00 AM EDT, [facility]/pharmacy #[id number], Partial fill upon patient request if the prescription is for a schedule II opioid drug., 180, cm, 01/09/24 9:22:00 EDT, Height, 128, kg, 01/09/24 9:22:00 EDT, Dry Weight Start Date: 01/09/24 Stop Date: 03/09/24 Status: Ordered Quantity: 30.0 Unit: tablet Repeat number: 2 tamsulosin 0.4 mg oral capsule 0.4 mg, 1, capsule, By Mouth, Daily, # 30 capsule, Refills 1, Tot. Refills 1, Maintenance, 04/03/24 4:02:00 PM EDT, Route to Pharmacy Electronically, [facility]/pharmacy #[id number], Partial fill upon patient request if the prescription is for a schedule II opioid drug., 180, cm, 04/03/24 15:26:00 EDT, Height, 132.7, kg, 04/03/24 15:29:00 EDT, Dry Weight Start Date: 04/03/24 Stop Date: 06/02/24 Status: Ordered Quantity: 30.0 Unit: capsule Repeat number: 2 Problem List Condition Confirmation Course Effective Dates Status Health St atus Informant HLD (hyperlipidemia) Confirmed Active HTN (hypertension) Confirmed Active Prostate cancer Confirmed Active Severe obesity Confirmed Active DM type 2 (diabetes mellitus, type 2) Confirmed Active Vital Signs Most recent to oldest [Reference Range]: 1 Height 180 cm (04/03/24 3:26 PM) Weight 132.7 kg (04/03/24 3:26 PM) Oxygen Saturation [94-100 %] 100 % (04/03/24 3:26 PM) Pulse Rate [55-90 bpm] 64 bpm (04/03/24 3:26 PM) Body Mass Index [18.5-24.99 kg/m2] 40.96 kg/m2 *>HHI* (04/03/24 3:26 PM) Blood Pressure [90-138/55-84 mm Hg] 116/ 57mm Hg (04/03/24 3:26 PM) Temperature [96.8-100.4 DegF] 98 DegF (04/03/24 3:26 PM) Mode of Delivery (Oxygen) Room air (04/03/24 3:26 PM) Blood pressure sites Arm, right (04/03/24 3:26 PM) Temperature Route Oral (04/03/24 3:26 PM) Dry Weight 132.7 kg (04/03/24 3:26 PM) Weight Obtained Via Standing scale (04/03/24 3:26 PM) Dry Weight Obtained Via Standing scale (04/03/24 3:26 PM) Social History Social History Type Response Smoking Status Never (less than 100 in lifetime) entered on: 05/02/23 Sex Sex Representation Male (finding) Patient Care team information Care Team Personnel Name: Hasmukh Encinas III, MD Position: Reference Physician Member Role: PCP Address: [address] [place] [id number] Telecom: Name: Gt Irizarry MD, Ricco Aquino Position: S Physician - Oncology Med Service: Hematology & Oncology Member Role: Attending Physician Address: [address] [place] [address] Hem/[place] [address]- [place] Telecom: Care Team Related Persons Name: TORIE RUBIO Name: MARCELLA RUBIO Insurance Providers Guarantor name: CLAYTON RUBIO Health Plan Information #: 1 Payer: [facility] POS Member Number: [id number] Policy Number: NA Group Number: NA Health Plan Information #: 2 Payer: [facility] POS Member Number: [id number] Policy Number: NA Group Number: NA
[2024-07-03 12:15] LABS: Prostate Specific Antigen < 0.10 ng/mL (<0.05-4.0)
[2024-07-10 16:57] LABS: Testosterone, Total 8 ng/dL (250-1100)
== END 2024-07-03 10:22 | disposition home or self-care (01) ==
LOC: HO.LAB 10:21
PROVIDERS: PCP Internal Medicine; Visit Provider Urology
DX: C61 Malignant neoplasm of prostate (principal); R35.1 Nocturia; R35.0 Frequency of micturition; R39.15 Urgency of urination; N40.1 Benign prostatic hyperplasia with lower urinary tract symptoms; R97.20 Elevated prostate specific antigen [PSA]; Z12.5 Encounter for screening for malignant neoplasm of prostate
CPT/HCPCS: 36415; 84153; 84402; 84403

== ENCOUNTER 2024-07-09 11:09 | Outpatient (AMB) | payer OTHER, SELFPAY ==
--- NOTE | 2024-07-09 11:10 | MHC.OFFVIS ---
Intake Visit Reasons: 3M PSA/Testo(pending) Intake Note: Patient is present for 3M PSA/TESTO Urology Medication:FINASTERIDE Antibiotic Allergy:NONE Blood Thinner:NONE Host Hostess Required: No Allergies meperidine [Demerol] Allergy (Unknown, Verified 07/09/24 11:11) Unknown HPI Comments Details: Mr Hagen is a very pleasant male. He is a patient of Dr Encinas. He is seen for the following urologic conditions. - lower urinary tract symptoms - nephrolithiasis Telemedicine Evaluation 15 min Consultation [employer] David Video 07/25 <0.1 Feels his GnRH slowly wearing off as his emotions becoming more under control Can stop finasteride Check lab work in three-month 03/24 P <0.1 T 7 Continue good response Here for last GnRH 12/22 P <0.1 T 3 Continue good response Minimal symptoms Has come off abiraterone and is feeling more energy given his job Plan three-month follow-up for lab work and GnRH 09/21 P <0.1, T<1 Current therapy GnRH with abiraterone and external beam radiation HbA1c has risen 1.0 points, potassium issues Oncology have given potassium Second GnRH injection provided Continue finasteride Given diabetic complications from GnRH + antiandrogen will consider ceasing antiandrogen in 3 months based on HbA1c response Working at [employer] - greatly improved his outlook on life - had an issue with a female co-worker Prostate Cancer - High risk, clinically localized - external beam radiotherapy with radiation oncology Dr. Rodriguez [facility], Medical Oncology [facility] Dr. Love 03/23 GnRH, 09/21 GnRH Diagnosed 01/20 Dr Escamilla No family history of prostate cancer TRUS - 01/20 55gm PSA 4.7 F 11% on finasteride Jayna score: 5+4=9 (left apex lateral, left apex medial), 4+5=9 (left mid lateral, left mid medial), 3+5=8 (Left base medial), 3+4=7 (left base lateral) Tumor quantitation: Number cores positive: 6 Total number of cores: 12 % of tissue involved: 40% (all on the left) Periprostatic fat inv.: Not identified Seminal vesicle inv.: Not identified Perineural inv.: Present LVI: Not identified Staging 02/20 Bone scan negative 02/20 MRI 2 cm lesion, abutting capsule, no evidence of seminal vesicle involvement, likely neurovascular bundle involvement Lower Urinary Tract Symptoms: Current visit is for further evaluation of, lower urinary tract symptoms, predominate obstructive symptoms - PSA decline on finasteride from 7.2-4.5 Current treatment includes medication- finasteride Prior medications - oxybutynin with significant dehydration, dry mouth, tolterodine minimal benefit - Myrbetriq too expensive Prostate Symptom Score 8 , Mild (0-8), Bother 2 Symptoms include 02/15 , nocturia (>2), weak stream, and are improving. PSA 06/18 4.8, 08/20 3.8, 08/21 4.4, 03/21 7.2, 05/21 4.5 finasteride, 12/21 4.7 11% Cystoscopy - 05/21 open bladder neck with high bladder lip Nephrolithiasis/Urolithiasis: They are here for further evaluation of nephrolithiasis Urolithiasis was diagnosed 2010. The patient previously had kidney stones whose composition w unknown. Laboratory investigations include no recent labs. 24 Hour urine evaluation none on file. Prior treatment(s) include observation, with dietary advice to increase fluids, decrease salt and watch protein intake , ESWL 04/10 right side. Prior imaging includes November 2015 a KUB x-ray, showing no evidence of stones December 2016, a KUB x-ray, showing no evidence of stones 01/15 , a renal ultrasound, right 2cm cyst, left 4x3mm stone 08/19 , a renal ultrasound, stable cyst and stoned in left kidney 08/20 , a renal ultrasound, stable cysts and no stones - 03/21 renal ultrasound bilateral renal cyst right 5 cm, left 2 cm. No stone - 01/19 renal ultrasound stable cysts, question 4 mm right stone UA today shows 5.5-6.0, low pH suggestive of higher protein load, high specific gravity suggestive of relative dehydration. Current therapeutic plan will be to continue with imaging surveillance at appropriate interval [facility] Medical History Elevated PSA Benign prostatic hyperplasia with lower urinary tract symptoms Poor urinary stream History of urinary hesitancy Weak urinary stream Surgical History H/O hand surgery Hx of lithotripsy Family History Father No problems noted. Mother Cancer Arthritis of knee Review of Systems Const All systems reviewed & are unremarkable except as noted in HPI and below Reports no additional complaints Resp Reports no additional complaints GI Reports no additional complaints Reports as per HPI Musc Reports no additional complaints Physical Exam Telemedicine evaluation Appropriate responses Regular breathing rate and rhythm HEENT Head: Yes normal to inspection Ears: hearing grossly normal bilaterally Eyes General: appearance normal, both eyes and all related structures Neck Neck: Yes normal visual inspection Chest Chest palpation & inspection: normal inspection of the chest Resp Effort & Inspection: normal respiratory effort and able to speak in complete sentences Telehealth Telehealth Telehealth Platform: [employer] Location of provider rendering services: practice address Location of patient: address on file Patient Identification confirmed using: Name, : Yes Telehealth method: video Patient verbally consented to treatment: Yes Patient verbally consented to billing insurance company: Yes Patient informed of any privacy concerns related to visit: Yes Minutes spent on Phone/Video with Pt.: 15 Assessment & Plan Assessment & Plan (1) Prostate cancer: Comment: High Grade Code(s): C61 - Malignant neoplasm of prostate Category: Medical (2) Nocturia more than twice per night: Code(s): R35.1 - Nocturia Category: Medical Plan Three-month follow-up lab work office Orders: Orders Prostate Specific Antigen 3 Months C61 - Malignant neoplasm of prostate Testosterone, Total 3 Months C61 - Malignant neoplasm of prostate Patient Instructions: Imaging studies, laboratory and physical exam results were discussed and reviewed in detail. No major barriers to patient understanding were identified. An opportunity to ask questions regarding the treatment plan was provided. All questions were answered. The patient expressed understanding and agreement with the above treatment plan. The patient is aware they should contact our office by phone for worsening of their current condition or the appearance of new urologic symptoms. Compliance is encouraged with any medications and followup testing that is ordered. It is a privilege to participate in the urologic care of your patient. If you have any questions or concerns regarding treatment for the above conditions, or other urologic issues, please do not hesitate to contact me. The office telephone contact is [phone]. This note is constructed using voice recognition software. While every effort has been made to ensure accuracy home housekeeper errors may have been included. Yours sincerely, Dr Kevin Escamilla MD, [facility] Providers of Expert, Compassionate Care for the Genitourinary System Coding Level of Care Code Tele Est Pt Level 3 (01413) Diagnoses Prostate cancer C61 Nocturia more than twice per night R35.1
== END 2024-07-09 11:55 | disposition home or self-care (01) ==
LOC: HO.HUSH 11:09
PROVIDERS: PCP Internal Medicine; Visit Provider Urology
DX: C61 Malignant neoplasm of prostate (principal); R35.1 Nocturia
CPT/HCPCS: 98004

== ENCOUNTER 2024-10-02 15:13 | Outpatient (REF) | payer OTHER, SELFPAY ==
--- OUTSIDE RECORDS SUMMARY | 2024-10-02 16:31 | XMS_ITS | Clinical Summary ---
Author Organization [facility] Address [address] [place] [id number] Phone Care Team Providers Care Knife Glazer Name Role Phone Hasmukh Encinas MD Primary Care Provider [phone] Allergies Active Allergy Reactions Criticality Noted Date Comments Meperidine Hcl Hallucinations,Nausea And Vomiting 08/06/2005 Medications ONETOUCH DELICA LANCETS MISC Apply 1 Stick topically 3 times daily. 12/13/19 17 Active cholecalcifero l (VITAMIN D-3) 50 mcg (2,000 unit) tablet Take 1 Tablet by mouth daily. 02/21/20 23 Active diclofenac (VOLTAREN) 1 % topical gel Apply 4 g topically 4 times daily. 08/22/19 23 Active finasteride (PROSCAR) 5 mg tablet Take 5 mg by mouth daily. 06/12/20 20 Active fluticasone propionate (FLONASE) 50 mcg/actuation nasal spray 1 [place] by Each Nare route daily for 360 days. 08/26/19 24 Active atorvastatin (LIPITOR) 20 mg tablet TAKE 1 TABLET BY MOUTH EVERYDAY AT BEDTIME 90 tablet 1 09/30/19 25 Active hydroCHLOROthi azide (HYDRODIURIL) 25 mg tablet TAKE 1 TABLET BY MOUTH EVERY DAY 90 tablet 1 09/30/19 25 Active amLODIPine (NORVASC) 5 mg tablet TAKE 1 TABLET BY MOUTH EVERY DAY 90 tablet 1 09/30/19 25 Active nadoloL (CORGARD) 80 mg tablet TAKE 1 TABLET BY MOUTH EVERY DAY 90 tablet 1 09/30/19 25 Active amLODIPine (NORVASC) 5 mg tablet TAKE 1 TABLET BY MOUTH EVERY DAY 03/31/20 24 025 Discontinued atorvastatin (LIPITOR) 20 mg tablet TAKE 1 TABLET BY MOUTH EVERYDAY AT BEDTIME 03/31/20 24 025 Discontinued hydroCHLOROthi azide (HYDRODIURIL) 25 mg tablet TAKE 1 TABLET BY MOUTH EVERY DAY 03/31/20 24 025 Discontinued nadoloL (CORGARD) 80 mg tablet TAKE 1 TABLET BY MOUTH EVERY DAY 03/31/20 24 025 Discontinued Active Problems Problem Noted Date Diagnosed Date Elevated PSA 01/29/2023 BPH (benign prostatic hyperplasia) 01/05/2022 Overview (06/05/2024): Elevated psa, follows with dr. 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 Chronic liver disease 08/06/2005 Overview (06/05/2024): IMO update Hypertension 08/06/2005 Encounters Date Type Department Care Team Description 08/28/2024 1:15 PM EST Office Visit Adult Medicine [address] [phone] Hasmukh Encinas MD Type II diabetes mellitus, well controlled (CMS/HCC) (Primary Dx); Primary hypertension; Pure hypercholesterolemia; Encounter for long-term (current) use of medications; Microalbuminuria; Prostate cancer (CMS/HCC) 07/31/2024 Telephone Adult Medicine [address] [phone] Hasmukh Encinas MD Referral 07/10/2024 Telephone Adult Medicine [address] [phone] Hasmukh Encinas MD Referral from Last 3 Months Immunizations Name Administration Dates Next Due Pneumococcal polysaccharide 23 valent (Pneumovax 23) 2yo and older 06/20/2018 Td Tetanus diptheria (Tdvax) 7yo and older 06/29 Tdap Tetanus diptheria acell ular pertussis (Boostrix; Adacel) 7yo and older 01/27/2009 Surgical History Surgery Date Site/Laterality Comments HAND SURGERY 1991 PROCEDURE: HISTORICAL HAND SURGERY; COMMENT: nerve repair l middle finger COLONOSCOPY 07/11/2012 PROCEDURE: CO COLONOSCOPY FLX DX W/COLLJ SPEC WHEN PFRMD; COMMENT: diverticulosis LITHOTRIPSY 2010 PROCEDURE: HISTORICAL LITHOTRIPSY MULTIPLE TOOTH EXTRACTIONS PROCEDURE: HISTORICAL DENTAL EXTRACTION CARPAL TUNNEL RELEASE 2019 Bilateral PROCEDURE: HISTORICAL CARPAL TUNNEL REL; COMMENT: Dr. Merino Medical History Medical History Date Comments Unspecified essential hypertension DX:Unspecified essential hypertension Unspecified chronic liver di sease without mention of alcohol DX:Unspecified chronic live r disease without mention of alcohol Diverticulosis of colon (wit hout mention of hemorrhage) 07/11/2012 DX:Diverticulosis of colon ( without mention of hemorrhage) Kidney stone 10/31/2012 DX:Kidney stone Elevated PSA 01/29/2023 DX:Elevated PSA Family History Medical History Relation Name Comments Other: COPD Father on oxygen, DECE ASED Arthritis Mother Lung cancer Mother Relation Name Status Comments Father Mother Social History Tobacco Use Types Packs/Day Years Used Date Smoking Tobacco: Never Smokeless Tobacco: Never Tobacco Cessation:Counseling Given: Not Answered Alcohol Use Standard Drinks/Week Comments Yes 0 (1 standard drink = 0.6 oz pur e alcohol) Sex and Gender Information Value Date Recorded Sex Assigned at Not on file Legal Sex Male 5:52 AM EST Gender Identity Not on file Sexual Orientation Not on file Obstetrics History Last Filed Vital Signs Vital Sign Reading Time Taken Comments Blood Pressure 122/78 08/28/2024 1:15 PM EST Pulse 90 08/28/2024 1:15 PM EST Temperature 36.4 ??C (97.6 ??F) 08/28/2024 1:15 PM ES T Respiratory Rate 16 08/28/2024 1:15 PM EST Oxygen Saturation - - Inhaled Oxygen Concentration - - Weight 139 kg (306 lb) 08/28/2024 1:15 PM EST Height 180.3 cm (5' 11 ) 08/28/2024 1:15 PM EST Body Mass Index 42.68 08/28/2024 1:15 PM EST Plan of Treatment Upcoming Encounters Date Type Department Care Team (Late st Contact Info) Description 02/23/2025 8:30 AM EDT Office Visit Adult Medicine [facility] [address] [place] [phone] Arcelia Chavez PA [address] [place] [address] Health Maintenance Due Date Last Done Comments Diabetes: Annual Foot Exam 02/07/1972 Diabetes: Annual Retina Eye Exam 02/07/1972 Zoster Vaccines (1 of 2) 1981 Pneumococcal Vaccine: 50+ Years (2 of 2 - PCV) 06/20/2019 06/20/2018 Pneumococcal Vaccine: Pediatrics (0 to 5 Years) and At-Risk Patients (6 to 64 Years) (2 of 2 - PCV) 06/20/2019 06/20/2018 RSV Immunization Adult Patients (1 - Risk 60-74 years 1-dose series) 2022 Colorectal Cancer Screening: Colonoscopy 06/09/2022 Depression Screening 06/09/2022 HIV Screening 06/09/2022 Social Influencers of Health Screening 06/09/2022 COVID-19 Vaccine (2023-2 5 season) 2024 06/26/2021, 11/03/2020, 10/12/2020 Diabetes: Blood Sugar Contro l Test (HGBA1C) 02/25/2025 08/28/2024, 02/25/2024, 02/25/2024 Influenza Vaccine (Season Ended) 2025 Diabetes: Annual Urine Albumin-Creatinine Ratio (uACR) 08/28/2025 08/28/2024, 02/25/2024 Diabetes: Annual GFR (Glomerular Filtration Rate) 08/28/2025 08/28/2024, 02/25/2024, 02/25/2024 Hypertension/CHF/CAD Annual BMP Blood Test 08/28/2025 08/28/2024, 02/25/2024, 02/25/2024 DTaP,Tdap,and Td Vaccines (3 - Td or Tdap) 06/29/2029 06/29/2019, 01/27/2009 Cholesterol Screening (Lipid Panel) 08/28/2029 08/28/2024, 02/25/2024, 02/25/2024 Hepatitis C Screening Completed 05/01/2016 HIB Vaccines Aged Out No longer eligi ble based on patient's age to complete this topic HPV Vaccines Aged Out No longer eligi ble based on patient's age to complete this topic Hepatitis A Vaccines Aged Out No long er eligible based on patient's age to complete this topic Hepatitis B Vaccines Aged Out No long er eligible based on patient's age to complete this topic IPV Vaccines Aged Out No longer eligi ble based on patient's age to complete this topic MMR Vaccines Aged Out No longer eligi ble based on patient's age to complete this topic Meningococcal ACWY Vaccine Aged Out N o longer eligible based on patient's age to complete this topic Meningococcal B Vacine Aged Out No lo nger eligible based on patient's age to complete this topic RSV Immunization Patients Under 20 months Aged Out No longer eligible b ased on patient's age to complete this topic Varicella Vaccines Aged Out No longer eligible based on patient's age to complete this topic Procedures Procedure Name Priority Date/Time Associated Diagnosis Comments HEMOGLOBIN A1C Routine 08/28/2024 1:52 PM EST Type II diabetes mellitus, well controlled (CMS/HCC) LIPID PANEL WITH REFLEX TO DIRECT LDL Routine 08/28/2024 1:52 PM EST Pure hypercholesterolemia COMPREHENSIVE METABOLIC PANEL Routine 08/28/2024 1:52 PM EST Type II diabetes mellitus, well controlled (CMS/HCC) Primary hypertension Encounter for long-term (current) use of medications MICROALBUMIN CREATININE URINE RATIO Routine 08/28/2024 1:52 PM EST Type II diabetes mellitus, well controlled (CMS/HCC) EXTERNAL CLINICAL LAB 07/06/2024 HEPATITIS C SCREENING Routine 05/01/2016 from Last 3 Months or Most Recently Relevant to Health Maintenance Results * (ABNORMAL) Lipid panel with reflex to direct LDL (08/28/2024 1:52 PM EST) Cholesterol 139 0 - 200 mg/dL LAB CHEMISTRY METHOD 08/28/2024 8:17 PM EST [facility] Triglycerides 257(H) 0 - 150 mg/dL LAB CHEMISTRY METHOD 08/28/2024 8:17 PM EST [facility] HDL 45 >=40 mg/dL LAB CHEMISTRY METHOD 08/28/2024 8:17 PM [facility] LDL Calculated 43 0 - 100 mg/dL LAB CHEMISTRY METHOD 08/28/2024 8:17 PM [facility] VLDL Cholesterol Jg 51.4 mg/dL LAB CHEMISTRY METHOD 08/28/2024 8:17 PM [facility] Non HDL Chol. (LDL+VLDL) 94 <145 mg/dL LAB CHEMISTRY METHOD 08/28/2024 8:17 PM [facility] Chol/HDL Ratio 3.1 0.0 - 4.4 LAB CHEMISTRY METHOD 08/28/2024 8:17 PM [facility] Blood Venous blood specimen / Unknown Venipuncture / Unknown 08/28/2024 1:52 PM EST 08/28/2024 1:52 PM EST us Hasmukh Encinas MD LAB BLOOD ORDERABLES Final Resu lt [facility] [address] [place] [address], * Microalbumin creatinine urine ratio (08/28/2024 1:52 PM EST) Creatinine, Urine 68.0 mg/dL LAB CHEMISTRY METHOD 08/28/2024 6:01 PM [facility] Microalb, Ur <5.0 0.0 - 29.0 mg/L LAB CHEMISTRY METHOD 08/28/2024 6:01 PM [facility] Microalb/Creat Ratio <7 <30 mg/g creat LAB CHEMISTRY METHOD 08/28/2024 6:01 PM EST [facility] Urine Urine specimen obtained by clean catch procedure / Unknown Non-blood Collection / Unknown 08/28/2024 1:52 PM EST 08/28/2024 1:52 PM EST us Hasmukh Encinas MD LAB URINE ORDERABLES Final Resu lt Performing Organization Address [facility]/ZIP Co de Phone Number [facility] [address] [place] [address], [place] [phone] * (ABNORMAL) Hemoglobin A1c (08/28/2024 1:52 PM EST) Hemoglobin A1C 7.2(H) <6.5 % LAB CHEMISTRY METHOD 08/31/2024 9:38 PM EST [facility] Mean Bld Glu Estim. 160 mg/dL LAB CHEMISTRY METHOD 08/31/2024 9:38 PM EST [facility] Blood Venous blood specimen / Unknown Venipuncture / Unknown 08/28/2024 1:52 PM EST 08/28/2024 1:52 PM EST us Hamsukh Encinas MD LAB BLOOD ORDERABLES Final Resu lt Performing Organization Address City/[facility]/ZIP Co de Phone Number [facility] [address] [place] [address], [place] [phone] * (ABNORMAL) Comprehensive metabolic panel (08/28/2024 1:52 PM EST) Sodium 137 133 - 145 mmol/L LAB CHEMISTRY METHOD 08/28/2024 8:17 PM EST [facility] Potassium 4.2 3.5 - 5.5 mmol/L LAB CHEMISTRY METHOD 08/28/2024 8:17 PM EST [facility] Chloride 102 96 - 110 mmol/L LAB CHEMISTRY METHOD 08/28/2024 8:17 PM [facility] CO2 27 21 - 32 mmol/L LAB CHEMISTRY METHOD 08/28/2024 8:17 PM [facility] Anion Gap 8 3 - 11 LAB CHEMISTRY METHOD 08/28/2024 8:17 PM [facility] Glucose 132(H) 70 - 100 mg/dL LAB CHEMISTRY METHOD 08/28/2024 8:17 PM [facility] BUN 15 5 - 25 mg/dL LAB CHEMISTRY METHOD 08/28/2024 8:17 PM [facility] Creatinine 1.02 0.70 - 1.30 mg/dL LAB CHEMISTRY METHOD 08/28/2024 8:17 PM [facility] eGFR 83 >=60 mL/min/1. 73m2 LAB CHEMISTRY METHOD 08/28/2024 8:17 PM [facility] Comment:Calculation based on the??Chronic Kidney Disease Epidemiology Collaboration (CKD-EPI) equation refit??without adjustment for race. BUN/Creatinine Ratio 14.7 LAB CHEMISTRY METHOD 08/28/2024 8:17 PM [facility] Calcium 9.8 8.5 - 10.5 mg/dL LAB CHEMISTRY METHOD 08/28/2024 8:17 PM [facility] AST (SGOT) 21 10 - 42 unit/L LAB CHEMISTRY METHOD 08/28/2024 8:17 PM [facility] ALT (SGPT) 46 10 - 60 unit/L LAB CHEMISTRY METHOD 08/28/2024 8:17 PM [facility] Alkaline Phosphatase 118 42 - 121 unit/L LAB CHEMISTRY METHOD 08/28/2024 8:17 PM [facility] Total Protein 7.2 6.0 - 8.0 g/dL LAB CHEMISTRY METHOD 08/28/2024 8:17 PM [facility] Albumin 3.8 3.2 - 5.0 g/dL LAB CHEMISTRY METHOD 08/28/2024 8:17 PM EST [facility] Total Bilirubin 0.5 0.0 - 1.4 mg/dL LAB CHEMISTRY METHOD 08/28/2024 8:17 PM EST [facility] Blood Venous blood specimen / Unknown Venipuncture / Unknown 08/28/2024 1:52 PM EST 08/28/2024 1:52 PM EST us Hasmukh Encinas MD LAB BLOOD ORDERABLES Final Resu lt [facility] [address] [place] [address], [place] [phone] * External clinical lab (07/06/2024) Provider Onbase LAB BLOOD ORDERABLES Final Re sult * Hepatitis C Screening (05/01/2016) Hepatitis C Screening Abstracted Historical Provider HEALTH MAINTENANCE Final Result from Last 3 Months or Most Recently Relevant to Health Maintenance Insurance [facility] Care Teams Knife Glazer Relationship Specialty Start Date End Date Hasmukh Encinas MD [address] [place] [id number] PCP - General Internal Medicine 03/15/20
--- OUTSIDE RECORDS SUMMARY | 2024-10-02 16:31 | XMS_ITS | Data Portability ---
Author Organization [place] - [facility], Allergy Address [address] [place] [phone] Care Team Providers Care Admissions Officer Name Role Phone ROLA BURGESS Referring Provider [phone] Assessment Encounter Date Assessment Date Assessment LastModified by Organization Details LastModified Time 04/20/2024 04/20/2024 Patient with recent treatment for prostate cancer presents with recurrent nasal polyps and colored nasal discharge. Because of his depression and fear of water boarding he has been unable to do irrigations in the past. Examination shows recurrent polyps with purulent nasal discharge. I have suggested a 9-day taper prednisone, a course of doxycycline and trying budesonide irrigations with the powered nasal lavage system. We will see how things go over the next 3 to 4 months. I will also check an IgE level and a CBC with differential. [email or web address] Not available 04/20/2024 09:05:48 08/04/2024 08/04/2024 1. Chronic rhinosinusitis w/ nasal polyposis 64yo gentleman who presents today for evaluation of chronic rhinosinusitis with nasal polyps s/p FESS [place] [address] Benavides. He was last seen in March 2024 for follow-up. At that time, he had recurrence of his polyps with ongoing sinus infection. He was started on a course of prednisone and doxycycline. He was also recommended to start budesonide irrigations. He is currently not doing anything for his nose. CBC + IgE testing were within normal limits. On exam today, he continues to have presence of polyps. No evidence of infection on history or exam today. He would like to work up slowly to trying irrigations. - Flonase BID in the meantime - Budesonide irrigations when tolerated - Follow-up in 4 months w/ Dr. Benavides 2. Subjective change in hearing. Otomicroscopic exam is within normal limits today. Audiogram ordered prior to next visit. [email or web address] Not available 08/04/2024 10:15:06 Plan of Treatment Reminders Order Date Submit Date Provider Last Modified By Organization Details Last Modified Time Details Appointments Hearing Test 2024 01:30P M Hearing Test Not available Not available Not available Establish ed 30 2024 02:00P M RODGER CHIRINOS MD Not available Not available Not available Lab ige, total, serum 2023 PRATEEK [facility] (Centralized Electronic Ordering - All Locations), Patient Can Go To The Location Of Their Choice, [id number] 04/24/2024 17:08:05 CBC w/ auto diff 2023 LURAY [facility] (Centralized Electronic Ordering - All Locations), Patient Can Go To The Location Of Their Choice, [id number] 04/24/2024 17:08:05 Referral None recorded. Procedures None recorded. Surgeries None recorded. Imaging None recorded. Medication Orders Flonase Allergy Relief 50 mcg/actua tion nasal spray,nolberto pension 2024 025 [facility] #[id number], [address] [place], [address], 08/04/2024 09:31:24 prednison e 20 mg tablet 2023 024 [facility][id number], [address] [place], [address], 04/20/2024 09:06:45 budesonid e 0.5 mg/2 mL suspensio n for nebulizat ion 2023 024 [facility]09[facility], [address] [place], [address], 04/20/2024 09:06:45 doxycycli ne hyclate 100 mg tablet 2023 024 [facility]0969, [address] [place], [address], 04/20/2024 09:06:45 Patient TargetsNo targets recorded. Patient InstructionsNo instructions recorded. Reason for Referral None Reported. Results Created Date Observation Date Name Description Value Unit Range Abnormal Flag Note LastModifiedBy Organization Detail LastModifiedTime 04/20/2004/21/2024 CBC WITH DIFFE RENTI AL/PL ATELE T WBC 5.2 x10e3 /uL 3.4-10 .8 normal Not Available [facility] ([facility]) [address] [place], [address], 04/24/2024 17:08:05 04/20/2004/21/2024 CBC WITH DIFFE RENTI AL/PL ATELE T RBC 4.24 x10e6 /uL 4.14-5 .80 normal Not Available [facility] ([facility]) [address] [place], [address], 04/24/2024 17:08:05 04/20/2004/21/2024 CBC WITH DIFFE RENTI AL/PL ATELE T hemoglobin 13.1 g/dL 13.0-1 7.7 normal Not Available [facility] ([facility]) [address] [place], [address], 04/24/2024 17:08:05 04/20/2004/21/2024 CBC WITH DIFFE RENTI AL/PL ATELE T hematocrit 40.2 % 37.5-5 1.0 normal Not Available [facility] ([facility]) [address] [place], [address], 04/24/2024 17:08:05 04/20/2004/21/2024 CBC WITH DIFFE RENTI AL/PL ATELE T MCV 95 fL 79-97 normal Not Available [facility] ([facility]) [address] [place], [address], 04/24/2024 17:08:05 04/20/2004/21/2024 CBC WITH DIFFE RENTI AL/PL ATELE T MCH 30.9 pg 26.6-3 3.0 normal Not Available [facility] ([facility]) [address] [facility], [place], [address], 04/24/2024 17:08:05 04/20/20 24 04/21/2024 CBC WITH DIFFE RENTI AL/PL ATELE T MCHC 32.6 g/dL 31.5-3 5.7 normal Not Available [facility] ([facility]) [address] [facility], [place], [address], 04/24/2024 17:08:05 04/20/2004/21/2024 CBC WITH DIFFE RENTI AL/PL ATELE T RDW 13.3 % 11.6-1 5.4 Not Available [facility] ([facility]) [address] [facility], [place], [address], 04/24/2024 17:08:05 04/20/20 24 04/21/2024 CBC WITH DIFFE RENTI AL/PL ATELE T platelets 223 x10e3 /uL 150-45 0 normal Not Available [facility] ([facility]) [address] [facility], [place], [address], 04/24/2024 17:08:05 04/20/2004/21/2024 CBC WITH DIFFE RENTI AL/PL ATELE T neutrophils 76 % not estab. normal Not Available [facility] ([facility]) [address] [facility], [place], [address], 04/24/2024 17:08:05 04/20/2004/21/2024 CBC WITH DIFFE RENTI AL/PL ATELE T lymphs 10 % not estab. normal Not Available [facility] ([facility]) [address] [facility], [place], [address], 04/24/2024 17:08:05 04/20/2004/21/2024 CBC WITH DIFFE RENTI AL/PL ATELE T monocytes 10 % not estab. normal Not Available [facility] ([facility]) [address] [facility], [place], [address], 04/24/2024 17:08:05 04/20/20 24 04/21/2024 CBC WITH DIFFE RENTI AL/PL ATELE T eos 3 % not estab. normal Not Available [facility] ([facility]) [address] [facility], [place], [address], 04/24/2024 17:08:05 04/20/20 24 04/21/2024 CBC WITH DIFFE RENTI AL/PL ATELE T basos 1 % not estab. normal Not Available [facility] ([facility]) [address] [facility], [place], [address], 04/24/2024 17:08:05 04/20/20 24 04/21/2024 CBC WITH DIFFE RENTI AL/PL ATELE T immature cells FACILITIES OPERATIONS TECHNICIAN Not Available [facility] ([facility]) [address] [place], [address], 04/24/2024 17:08:05 04/20/20 24 04/21/2024 CBC WITH DIFFE RENTI AL/PL ATELE T neutrophils (absolute) 4.0 x10e3 /uL 1.4-7. 0 normal Not Available [facility] ([facility]) [address] [place], [address], 04/24/2024 17:08:05 04/20/20 24 04/21/2024 CBC WITH DIFFE RENTI AL/PL ATELE T lymphs (absolute) 0.5 x10e3 /uL 0.7-3. 1 below low normal Not Available [facility] ([facility]) [address] [place], [address], 04/24/2024 17:08:05 04/20/20 24 04/21/2024 CBC WITH DIFFE RENTI AL/PL ATELE T monocytes(ab solute) 0.5 x10e3 /uL 0.1-0. 9 normal Not Available [facility] ([facility]) [address] [facility], [place], [address], 04/24/2024 17:08:05 04/20/20 24 04/21/2024 CBC WITH DIFFE RENTI AL/PL ATELE T eos (absolute) 0.2 x10e3 /uL 0.0-0. 4 normal Not Available [facility] ([facility]) [address] [facility], [place], [address], 04/24/2024 17:08:05 04/20/2004/21/2024 CBC WITH DIFFE RENTI AL/PL ATELE T baso (absolute) 0.0 x10e3 /uL 0.0-0. 2 normal Not Available [facility] ([facility]) [address] [place], [address], 04/24/2024 17:08:05 04/20/20 24 04/21/2024 CBC WITH DIFFE RENTI AL/PL ATELE T immature granulocytes 0 % not estab. Not Available [facility] ([facility]) [address] [place], [address], 04/24/2024 17:08:05 04/20/20 24 04/21/2024 CBC WITH DIFFE RENTI AL/PL ATELE T immature grans (abs) 0.0 x10e3 /uL 0.0-0. 1 Not Available [facility] ([facility]) [address] [place], [address], 04/24/2024 17:08:05 04/20/20 24 04/21/2024 CBC WITH DIFFE RENTI AL/PL ATELE T NRBC FACILITIES OPERATIONS TECHNICIAN Not Available [facility] ([facility]) [address] [place], [address], 04/24/2024 17:08:05 04/20/20 24 04/21/2024 CBC WITH DIFFE RENTI AL/PL ATELE T hematology comments: FACILITIES OPERATIONS TECHNICIAN Not Available [facility] ([facility]) [address] [facility], [place], [address], 04/24/2024 17:08:05 04/20/20 24 04/24/2024 IMMUN OGLOB ULIN E, TOTAL immunoglobul in E, total 49 IU/mL 6-495 Not Available [facility] ([facility]) [address] [facility], [place], [address], 04/24/2024 17:08:05 Result Notes None recorded. Problems Name Problem SNOMED Code Status Onset Date Resolution Date Notes Provider Name and Address Organization Details Recorded Time Chronic rhinitis 75184217 Active 2019 Chronic rhinitis; Note: Date Diagnosed : 01/14/2020 12:11 PM (J31.0) Not Available [facility] 4 02:38:50 Generaliz ed anxiety disorder 58210812 Active 2020 Generaliz ed anxiety disorder; Note: Date Diagnosed : 07/21/2020 12:33 PM (F41.1) Not Available [facility] 4 02:38:56 Acute conjuncti vitis of left eye 49367277449 9105 Active 2018 Unspecifi ed acute conjuncti vitis, left eye; Note: Date Diagnosed : 05/08/2019 9:19 AM (H10.32) Not Available [facility] 4 02:38:49 Dysphonia 66095774 Active 2017 Hoarsenes s; Note: Date Diagnosed : 07/17/2017 10:55 AM (R49.0) Not Available [facility] 4 02:38:50 Polyp of nasal cavity 340305003 Active 2018 Polyp of nasal cavity; Note: Date Diagnosed : 01/16/2019 3:26 PM (J33.0) Not Available [facility] 4 02:38:56 Loss of sense of smell 27800596 Active 2018 Anosmia; Note: Date Diagnosed : 01/16/2019 3:26 PM (R43.0) Not Available [facility] 4 02:38:52 Disorder of smell 151635228 Active 2018 Other disturban amber of smell and taste; Note: Date Diagnosed : 9 3:18 PM (R43.8) Not Available [facility] 4 02:38:55 Disorder of taste 360512580 Active 2018 Other disturban amber of smell and taste; Note: Date Diagnosed : 9 3:18 PM (R43.8) Not Available [facility] 4 02:38:55 Nasal congestio n 39927744 Active 2017 Nasal congestio n; Note: Date Diagnosed : 07/17/2017 10:55 AM (R09.81) Not Available [facility] 4 02:39:02 Chronic pansinusi tis 47815053 Active 2017 Chronic pansinusi tis; Note: Changed from J32.9 to J32.4 ( 8 11:52 AM) , Date Diagnosed : 07/17/2017 10:54 AM (J32.9) Not Available [facility] 4 02:38:45 Snoring 46191528 Active 2017 Snoring; Note: Date Diagnosed : 07/17/2017 10:55 AM (R06.83) Not Available [facility] 4 02:38:49 Deviated nasal septum 112431848 Active 2017 Deviated nasal septum; Note: Date Diagnosed : 07/17/2017 10:55 AM (J34.2) Not Available [facility] 4 02:38:56 Acute conjuncti vitis of right eye 72304589109 9102 Active 2017 Unspecifi ed acute conjuncti vitis, right eye; Note: Date Diagnosed : 08/26/2017 12:26 PM (H10.31) Not Available [facility] 4 02:38:53 Hypertrop hy of nasal turbinate s 43117489 Active 2017 Hypertrop hy of nasal turbinate s; Note: Date Diagnosed : 07/17/2017 10:54 AM (J34.3) Not Available [facility] 4 02:39:01 Essential hypertens ion 77450243 Active 2017 Essential (primary) hypertens ion; Note: Date Diagnosed : 08/26/2017 9:25 AM (I10) Not Available [facility] 4 02:38:54 Follow-up visit Active 2018 Medical surveilla nce following completed treatment ; Note: Date Diagnosed : 9 12:02 PM (Z09) Not Available [facility] 4 02:39:00 Chronic sinusitis 14324993 Active 2023 RODGER HIGH MD [address], [place], [address] , [facility] - [facility] 4 09:02:23 Chronic rhinosinu sitis with multiple nasal polyps Active 2024 AURORA GRANDE MD [address], [place], [address] , [place] - [facility] 5 09:31:22 Hearing change 787031821 Active 2024 AURORA GRANDE MD [address] [facility], [place], [address] , [facility] - [facility] 5 10:15:12 Chronic maxillary sinusitis 25597239 Active 2024 Mirian ortiz [place] - [facility] [place] 5 11:39:23 Problem Notes None recorded. Procedures Surgical History Date Name Laterality Status Provider Name and Address Organization Details Recorded Time 08/04/19 25 otomicroscopy completed AURORA GRANDE MD [address] [facility], [place], [address], [facility] - [facility] 08/04/2024 09:30:14 04/20/20 24 JMSNasal/Sinus Endoscopy-PRIOR surgical cavities completed RODGER BENAVIDES MD [address] [facility], [place], [address], [facility] - [facility] 04/20/2024 09:04:09 functional endoscopic sinus surgery completed RODGER BENAVIDES MD [address] [facility],[place] [address], [place], [address], [facility] - [facility] 04/17/2024 22:22:02 open stone operation on kidney or renal pelvis completed RODGER BENAVIDES MD [address] [facility] [address], [place], [address], [facility] 04/17/2024 22:22:17 Imaging Results None recorded. Procedure Notes None recorded. Medical Equipment None Reported. Allergies Allergen ID Allergen Name Allergen Category Reaction Reaction Severity Criticality Documentation Date Start Date Code Code System Note Provider Name and Address Organization Details Recorded Time 342723 meperidin e hydrochlo ride medicatio n other Not available Not available 11/12/2023 11622 5 RxNorm React ion: unkno wn, unspe cifie d;; Not Available [facility] 4 01:07:08 054165 Demerol medicatio n Not available Not available Not available 04/20/2024 07854 1 RxNorm Mirian ortiz [facility] 4 08:53:15 Medications Name Sig Start Date Stop Date Status Note LastModified by Organization Details LastModified Time bicalutam sharda 50 mg tablet TAKE 1 TABLET BY MOUTH EVERY DAY NOW UNTIL THE END OF RADIATIO N 04/20 completed Not Available Not Available Not Available prednison e 10 mg tablet 4 tablet by mouth 04/26 completed Medicati on ID: [id number] D uration Value: 5 Brand Name: predniso ne Send Method: E-Prescr ibed Sub s Allowed: subs OK Medic ationGen ericName : predniso ne Not Available Not Available Not Available atorvasta tin 20 mg tablet TAKE 1 TABLET BY MOUTH EVERYDAY AT BEDTIME active Not Available Not Available No t Available nadolol 80 mg tablet TAKE 1 TABLET BY MOUTH EVERY DAY active Not Available Not Available No t Available prednison e 20 mg tablet TAKE 3 TABS DAILY X3 DAYS, 2 TABS X3 DAYS,1 TAB DAILY X3 DAYS WITH FOOD active Not Available Not Available No t Available prednison e 5 mg tablet TAKE 1 TABLET BY MOUTH TWICE A DAY 04/20 completed Not Available Not Available Not Available clindamyc in HCl 150 mg capsule TAKE 1 CAPSULE BY MOUTH EVERY 6 HOURS UNTIL FINISHED active Not Available Not Available No t Available amlodipin e 5 mg tablet TAKE 1 TABLET BY MOUTH EVERY DAY active Not Available Not Available No t Available prochlorp erazine maleate 10 mg tablet TAKE 1 TABLET BY MOUTH EVERY 8 HOURS NEEDED FOR NAUSEA AND VOMITING FOR 30 DAYS 04/20 completed Not Available Not Available Not Available tamsulosi n 0.4 mg capsule TAKE 1 CAPSULE BY MOUTH EVERY DAY active Not Available Not Available No t Available doxycycli ne monohydra te 100 mg capsule 1 capsule by mouth 04/20 completed Medicati on ID: [id number] D uration Value: 10 Prescri bed By Name: Shreya Perdomo nd Name: doxycycl ine monohydr ate Send Method: E-Prescr ibed Sub s Allowed: subs OK Medic ationGen ericName : doxycycl ine monohydr ate Not Available Not Available Not Available budesonid e 0.5 mg/2 mL suspensio n for nebulizat ion Mix 1 vial in 8 ounces of distille d water with a buffered saline packet. Irrigate nose twice daily. Use half a bottle on each side active Not Available Not Available No t Available hydrochlo rothiazid e 25 mg tablet TAKE 1 TABLET BY MOUTH EVERY DAY active Not Available Not Available No t Available lorazepam 1 mg tablet TAKE 1 TABLET BY MOUTH ONCE NEEDED FOR ANXIETY [address] SCAN 04/20 completed Not Available Not Available Not Available fluticaso ne propionat e 50 mcg/actua tion nasal spray,nolberto pension [place] 1 spray twice a day by intranas al route. active Not Available Not Available No t Available sertralin e 50 mg tablet 04/20 completed Medicati on ID: [id number] B rand Name: sertrali ne Send Method: E-Prescr ibed Sub s Allowed: subs OK Medic ationGen ericName : sertrali ne Not Available Not Available Not Available doxycycli ne hyclate 100 mg tablet Take 1 tablet twice a day by oral route for 20 days. active Not Available Not Available No t Available finasteri de 5 mg tablet TAKE 1 TABLET BY MOUTH EVERY DAY active Not Available Not Available No t Available amoxicill in 875 mg-potass ium clavulana te 125 mg tablet TAKE 1 TABLET BY MOUTH EVERY 12 HOURS FOR 7 DAYS 04/20 completed Not Available Not Available Not Available oxycodone 5 mg tablet 01/16 completed Medicati on ID: [id number] D uration Value: 2 Brand Name: oxycodon e Send Method: E-Prescr ibed Sub s Allowed: subs OK Speci al Instruct ion: TAKE 1 TABLET BY MOUTH EVERY 6 HOURS NEEDED FOR PAIN Med icationG enericNa me: oxycodon e Not Available Not Available Not Available calcium 500 mg (as carbonate )-vit D3 10 mcg (400 unit) chewable tablet CHEW 1 TABLET BY MOUTH TWICE A DAY active Not Available Not Available No t Available abiratero ne 250 mg tablet 04/20 completed Not Available Not Available Not Available potassium chloride ER 20 mEq tablet,ex tended release TAKE 1 TABLET BY MOUTH EVERY DAY FOR 5 DAYS 04/20 completed Not Available Not Available Not Available Vitals Date Recorded Body height Body mass index (BMI) Body weight Provider Name and Address Organization Details Last Updated DateTime 04/20/2024 182.88 cm 39.7 kg/m2 879419.77 g Mirian Ruiz [facility] 04/20/2024 08:53:02 Date Recorded Body height Body mass index (BMI) Body weight Provider Name and Address Organization Details Last Updated DateTime 08/04/2024 182.88 cm 39.6 kg/m2 801751.97 g Benton Keita [facility] 08/04/2024 09:03:20 Social History None recorded. Functional Status None recorded. Mental Status None recorded. Family History Nothing Reported. Medical History Condition Response Nasal or Sinus Problems Y Cancer Y Depression Y Past Encounters Encounter ID Performer Location Encounter Start Date Encounter Closed Date Diagnosis/Indication Diagnosis SNOMED-CT Code Diagnosis ICD10 Code Diagnosis Note [id number] RODGER HIGH MD [facility] [address] [address] 04/20/2024 08:42:18 04/20/2024 09:12:40 Polyp of nasal cavity 793595197 J33.0 Chronic sinusitis 473791 00 J32.9 [id number] AURORA GRANDE MD [facility] [address] [place] [address] 08/04/2024 08:55:09 08/04/2024 09:34:30 Chronic rhinosinusitis with multiple nasal polyps 1748870703 J32.9 Hearing change 860118689 R44.9 Health Concerns Section Related Observation LastModified by Organization Detai ls LastModified Time None Recorded Concern Status LastModified by Organization Details LastModified Time None Recorded Advance Directives Directive None Recorded Payers Encounter Date Sequence Insurance Name Policy Number Policy Appiah Covered Member ID Appiah Member ID Guarantor Name 04/20/2024 1 [facility] Brett Hagen [id number] Brett Torresi 08/04/2024 1 [facility] Hieu [id number] Brett Hagen Notes Date Note Type Note Provider Name and Address Organization Details Recorded Time 04/20/2024 text/html Hx of sinus congestion for years. recent XRT for prostate CA. Needs extraction for his upper teeth. Chronic congestion right > left with colored d/cLast Abx more than 6 months agoFESS 2019No irrigations or INSStill getting Lupron injections every 6 monthsIssue with Depression RODGER BENAVIDES MD [address] [place] [address], [phone], [facility] - [facility] 04/20/2024 09:06:45 08/04/2024 text/html 64yo gentleman verenice jones presents today for evaluation of chronic rhinosinusitis with nasal polyps s/p FESS [place] [address] Benavides. He was last seen in March 2024 for follow-up. At that time, he had recurrence of his polyps with ongoing sinus infection. He was started on a course of prednisone and doxycycline. He was also recommended to start budesonide irrigations. Since that time, he has not continued any treatment. He reports overall, his sinuses feel good. No ongoing drainage, pain/pressure, infections. He has not tried the navage due to anxiety. He reports intermittent hyposmia but also intermittent improvement in his sense of smell. IgE + CBC were obtained previously as well - these were within normal limits aside from mildly low lymphocyte count. He also reports decrease in his hearing overtime. He denies any change in otorrhea, dizziness, vertigo, otalgia, otologic infections, otologic surgeries. AURORA GRANDE MD [address] [place] [address], [phone], [facility] - [facility] 08/04/2024 10:15:39
[2024-10-02 16:36] LABS: Prostate Specific Antigen < 0.10 ng/mL (<0.05-4.0)
[2024-10-08 16:32] LABS: Testosterone, Total 8 ng/dL (250-1100)
== END 2024-10-02 15:14 | disposition home or self-care (01) ==
LOC: HO.LAB 15:13
PROVIDERS: PCP Internal Medicine; Visit Provider Urology
DX: C61 Malignant neoplasm of prostate (principal); Z12.5 Encounter for screening for malignant neoplasm of prostate
CPT/HCPCS: 36415; 84153; 84403

== ENCOUNTER 2024-10-09 10:30 | Outpatient (AMB) | payer OTHER, SELFPAY ==
--- NOTE | 2024-10-09 10:35 | A.OFFVIS_ITS ---
Intake Visit Reasons: 3m/labs(labs?) Intake Note: Patient is present for 3M/LABS Urology Medication:FINASTERIDE Antibiotic Allergy:NONE Blood Thinner:NONE Allergies meperidine [Demerol] Allergy (Unknown, Verified 07/09/24 11:11) Unknown HPI Comments Details: Mr Hagen is a very pleasant male. He is a patient of Dr Encinas. He is seen for the following urologic conditions. - lower urinary tract symptoms - nephrolithiasis Doing well Recently purchased new backhoe Effective voiding Discussed laboratory results Has significant nighttime urination. Secondary to fluid mobilization. Moved to follow every 4 months 10/23 <0.1, T 8 Move to q.4 month follow-up 07/25 <0.1 Feels his GnRH slowly wearing off as his emotions becoming more under control Can stop finasteride Check lab work in three-month 03/24 P <0.1 T 7 Continue good response Here for last GnRH 12/22 P <0.1 T 3 Continue good response Minimal symptoms Has come off abiraterone and is feeling more energy given his job Plan three-month follow-up for lab work and GnRH 09/21 P <0.1, T<1 Current therapy GnRH with abiraterone and external beam radiation HbA1c has risen 1.0 points, potassium issues Oncology have given potassium Second GnRH injection provided Continue finasteride Given diabetic complications from GnRH + antiandrogen will consider ceasing antiandrogen in 3 months based on HbA1c response Working at [employer] - greatly improved his outlook on life - had an issue with a female co-worker Prostate Cancer - High risk, clinically localized - external beam radiotherapy with radiation oncology Dr. Rodriguez [facility], Medical Oncology [facility] Dr. Love 03/23 GnRH, 09/21 GnRH Diagnosed 01/20 Dr Escamilla No family history of prostate cancer TRUS - 01/20 55gm PSA 4.7 F 11% on finasteride Butler score: 5+4=9 (left apex lateral, left apex medial), 4+5=9 (left mid lateral, left mid medial), 3+5=8 (Left base medial), 3+4=7 (left base lateral) Tumor quantitation: Number cores positive: 6 Total number of cores: 12 % of tissue involved: 40% (all on the left) Periprostatic fat inv.: Not identified Seminal vesicle inv.: Not identified Perineural inv.: Present LVI: Not identified Staging 02/20 Bone scan negative 02/20 MRI 2 cm lesion, abutting capsule, no evidence of seminal vesicle involvement, 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 PSA 06/18 4.8, 08/20 3.8, 08/21 4.4, 03/21 7.2, 05/21 4.5 finasteride, 12/21 4.7 11% Cystoscopy - 05/21 open bladder neck with high bladder lip Nephrolithiasis/Urolithiasis: They are here for further evaluation of nephrolithiasis Urolithiasis was diagnosed 2010. The patient previously had kidney stones whose composition w unknown. Laboratory investigations include no recent labs. 24 Hour urine evaluation none on file. Prior treatment(s) include observation, with dietary advice to increase fluids, decrease salt and watch protein intake , ESWL 04/10 right side. Prior imaging includes November 2015 a KUB x-ray, showing no evidence of stones December 2016, a KUB x-ray, showing no evidence of stones 01/15 , a renal ultrasound, right 2cm cyst, left 4x3mm stone 08/19 , a renal ultrasound, stable cyst and stoned in left kidney 08/20 , a renal ultrasound, stable cysts and no stones - 03/21 renal ultrasound bilateral renal cyst right 5 cm, left 2 cm. No stone - 01/19 renal ultrasound stable cysts, question 4 mm right stone UA today shows 5.5-6.0, low pH suggestive of higher protein load, high specific gravity suggestive of relative dehydration. Current therapeutic plan will be to continue with imaging surveillance at appropriate interval [facility] Medical History Elevated PSA Benign prostatic hyperplasia with lower urinary tract symptoms Poor urinary stream History of urinary hesitancy Weak urinary stream Surgical History H/O hand surgery Hx of lithotripsy Family History Father No problems noted. Mother Cancer Arthritis of knee Review of Systems Const Denies chills and Denies fever(s) Card Reports no additional complaints and Denies syncope Resp Denies cough GI Denies abdominal pain and Denies heartburn Reports as per HPI and Denies change in libido Neuro Denies syncope Psych Denies change in libido Endo Denies change in libido Physical Exam Const General: cooperative, healthy appearing, comfortable and no acute distress Orientation/consciousness: patient oriented x3 HEENT Face and sinus: Yes normal facial exam Mouth: moist mucous membranes Neck Neck: Yes normal visual inspection, Yes full ROM and Yes trachea midline Chest Chest palpation & inspection: normal inspection of the chest Resp Effort & Inspection: normal respiratory effort, able to speak in complete sentences and no respiratory distress GI Inspection: Yes normal to inspection Back/Spine/Pelvis Cervical Spine: normal cervical lordosis Thoracic/Lumbar Spine: thoracic and lumbar spine normal to inspection Skin General skin exam: no rashes or lesions noted Neuro General: patient oriented x3, gait normal, tone normal and moves all extremities Extrem General: Yes normal to inspection and Yes capillary refill normal Assessment & Plan Assessment & Plan (1) Prostate cancer: Comment: High Grade Code(s): C61 - Malignant neoplasm of prostate Category: Medical Plan Four month follow-up Orders: Orders AMB Urinalysis Automated Today Z13.9 - Encounter for screening, unspecified Prostate Specific Antigen 4 Months C61 - Malignant neoplasm of prostate Medications: Discontinued finasteride Discontinued Reason: Patient Completed Course 5 mg PO DAILY 90 days 90 tabs 1RF N13.8 - Other obstructive and reflux uropathy, N40.1 - Benign prostatic hyperplasia with lower urinary tract symptoms, R33.9 - Retention of urine, unspecified Patient Instructions: This note is constructed using voice recognition software. While every effort has been made to ensure accuracy medicine tech errors may have been included. Imaging studies, laboratory and physical exam results were discussed and reviewed in detail. No major barriers to patient understanding were identified. An opportunity to ask questions regarding the treatment plan was provided. All questions were answered. The patient expressed understanding and agreement with the above treatment plan. The patient is aware they should contact our office by phone for worsening of their current condition or the appearance of new urologic symptoms. Compliance is encouraged with any medications and followup testing that is ordered. It is a privilege to participate in the urologic care of your patient. If you have any questions or concerns regarding treatment for the above conditions, or other urologic issues, please do not hesitate to contact me. The office telephone contact is [phone]. Sincerely, Dr Kevin Escamilla MD, [facility] - Urology Compassionate Specialist Care for the Genitourinary System Coding Level of Care Code Est Pt Level 3 (53223) Complex EM visit Add On G2211 Diagnoses Prostate cancer C61
--- OUTSIDE RECORDS SUMMARY | 2024-10-09 11:20 | XMS_ITS | Data Portability ---
Author Organization [place] - [facility], Allergy Address [address] [place] [address] Care Team Providers Care Activities Director Name Role Phone ROLA BURGESS Referring Provider [phone] Assessment Encounter Date Assessment Date Assessment LastModified [...] Go To The Location Of Their Choice, [id number] 04/24/2024 17:08:05 CBC w/ auto diff 2023 [place] [facility] (Centralized Electronic Ordering - All Locations), Patient Can Go To The Location Of Their Choice, [id number] 04/24/2024 17:08:05 Referral None recorded. Procedures None recorded. Surgeries None recorded. Imaging None recorded. Medication Orders Flonase Allergy Relief 50 mcg/actua tion nasal spray,nolberto pension 2024 025 [facility]acy #[id number], [address] [place], [address], 08/04/2024 09:31:24 prednison e 20 mg tablet 2023 024 [facility] #[id number], [address] [place], [address], 04/20/2024 09:06:45 budesonid e 0.5 mg/2 mL suspensio n for nebulizat ion 2023 024 [facility] #[id number], [address] [place], [address], 04/20/2024 09:06:45 doxycycli ne hyclate 100 mg tablet 2023 024 [facility] #[id number], [address] [place], [address], 04/20/2024 09:06:45 Patient TargetsNo targets recorded. Patient InstructionsNo instructions recorded. Reason for Referral None Reported. Results Created Date Observation Date Name Description Value Unit Range Abnormal Flag Note LastModifiedBy Organization Detail LastModifiedTime 04/20/2004/21/2024 CBC WITH DIFFE RENTI AL/PL ATELE T WBC 5.2 x10e3 /uL 3.4-10 .8 normal Not Available [facility] ([facility]) [address] [place], [address], 04/24/2024 17:08:05 04/20/2004/21/2024 CBC WITH DIFFE RENTI AL/PL ATELE T RBC 4.24 x10e6 /uL 4.14-5 .80 normal Not Available [facility] ([facility]) [address] [place], [address], 04/24/2024 17:08:05 04/20/2004/21/2024 CBC WITH DIFFE RENTI AL/PL ATELE T hemoglobin 13.1 g/dL 13.0-1 7.7 normal Not Available [facility] ([facility]) [address] [place], [address], 04/24/2024 17:08:05 04/20/2004/21/2024 CBC WITH DIFFE RENTI AL/PL ATELE T hematocrit 40.2 % 37.5-5 1.0 normal Not Available [facility] ([facility]) [address] [place], [address], 04/24/2024 17:08:05 04/20/2004/21/2024 CBC WITH DIFFE RENTI AL/PL ATELE T MCV 95 fL 79-97 normal Not Available [facility] ([facility]) [address] [place], [address], 04/24/2024 17:08:05 04/20/2004/21/2024 CBC WITH DIFFE RENTI AL/PL ATELE T MCH 30.9 pg 26.6-3 3.0 normal Not Available [facility] ([facility]) [address] [facility], [place], [address], 04/24/2024 17:08:05 04/20/20 24 04/21/2024 CBC WITH DIFFE RENTI AL/PL ATELE T MCHC 32.6 g/dL 31.5-3 5.7 normal Not Available [facility] ([facility]) [address] [facility], [place], [address], 04/24/2024 17:08:05 04/20/2004/21/2024 CBC WITH DIFFE RENTI AL/PL ATELE T RDW 13.3 % 11.6-1 5.4 Not Available [facility] ([facility]) [address] [facility], [place], [address], 04/24/2024 17:08:05 04/20/20 24 04/21/2024 CBC WITH DIFFE RENTI AL/PL ATELE T platelets 223 x10e3 /uL 150-45 0 normal Not Available [facility] ([facility]) [address] [facility], [place], [address], 04/24/2024 17:08:05 04/20/2004/21/2024 CBC WITH DIFFE RENTI AL/PL ATELE T neutrophils 76 % not estab. normal Not Available [facility] ([facility]) [address] [facility], [place], [address], 04/24/2024 17:08:05 04/20/2004/21/2024 CBC WITH DIFFE RENTI AL/PL ATELE T lymphs 10 % not estab. normal Not Available [facility] ([facility]) [address] [facility], [place], [address], 04/24/2024 17:08:05 04/20/2004/21/2024 CBC WITH DIFFE RENTI AL/PL ATELE T monocytes 10 % not estab. normal Not Available [facility] ([facility]) [address] [facility], [place], [address], 04/24/2024 17:08:05 04/20/20 24 04/21/2024 CBC WITH DIFFE RENTI AL/PL ATELE T eos 3 % not estab. normal Not Available [facility] ([facility]) [address] [facility], [place], [address], 04/24/2024 17:08:05 04/20/20 24 04/21/2024 CBC WITH DIFFE RENTI AL/PL ATELE T basos 1 % not estab. normal Not Available [facility] ([facility]) [address] [facility], [place], [address], 04/24/2024 17:08:05 04/20/20 24 04/21/2024 CBC WITH DIFFE RENTI AL/PL ATELE T immature cells SURGICAL INSTRUMENT MAKER Not Available [facility] ([facility]) [address] [place], [address], 04/24/2024 17:08:05 04/20/20 24 04/21/2024 CBC WITH DIFFE RENTI AL/PL ATELE T neutrophils (absolute) 4.0 x10e3 /uL 1.4-7. 0 normal Not Available [facility] ([facility]) [address] [place], [address], 04/24/2024 17:08:05 04/20/20 24 04/21/2024 CBC WITH DIFFE RENTI AL/PL ATELE T lymphs (absolute) 0.5 x10e3 /uL 0.7-3. 1 below low normal Not Available [facility] ([facility]) [address] [place], [address], 04/24/2024 17:08:05 04/20/20 24 04/21/2024 CBC WITH DIFFE RENTI AL/PL ATELE T monocytes(ab solute) 0.5 x10e3 /uL 0.1-0. 9 normal Not Available [facility] ([facility]) [address] [facility], [place], [address], 04/24/2024 17:08:05 04/20/20 24 04/21/2024 CBC WITH DIFFE RENTI AL/PL ATELE T eos (absolute) 0.2 x10e3 /uL 0.0-0. 4 normal Not Available [facility] ([facility]) [address] [facility], [place], [address], 04/24/2024 17:08:05 04/20/2004/21/2024 CBC WITH DIFFE RENTI AL/PL ATELE T baso (absolute) 0.0 x10e3 /uL 0.0-0. 2 normal Not Available [facility] ([facility]) [address] [place], [address], 04/24/2024 17:08:05 04/20/20 24 04/21/2024 CBC WITH DIFFE RENTI AL/PL ATELE T immature granulocytes 0 % not estab. Not Available [facility] ([facility]) [address] [place], [address], 04/24/2024 17:08:05 04/20/20 24 04/21/2024 CBC WITH DIFFE RENTI AL/PL ATELE T immature grans (abs) 0.0 x10e3 /uL 0.0-0. 1 Not Available [facility] ([facility]) [address] [place], [address], 04/24/2024 17:08:05 04/20/20 24 04/21/2024 CBC WITH DIFFE RENTI AL/PL ATELE T NRBC SURGICAL INSTRUMENT MAKER Not Available [facility] ([facility]) [address] [place], [address], 04/24/2024 17:08:05 04/20/20 24 04/21/2024 CBC WITH DIFFE RENTI AL/PL ATELE T hematology comments: SURGICAL INSTRUMENT MAKER Not Available [facility] ([facility]) [address] [facility], [place], [address], 04/24/2024 17:08:05 04/20/20 24 04/24/2024 IMMUN OGLOB ULIN E, TOTAL immunoglobul in E, total 49 IU/mL 6-495 Not Available [facility] ([facility]) [address] [facility], [place], [address], 04/24/2024 17:08:05 Result Notes None recorded. Problems Name Problem SNOMED Code Status Onset Date Resolution Date Notes Provider Name and Address Organization Details Recorded Time Chronic rhinitis 25450401 Active 2019 Chronic rhinitis; Note: Date Diagnosed : 01/14/2020 12:11 PM (J31.0) Not Available [facility] 4 02:38:50 Generaliz ed anxiety disorder 60195088 Active 2020 Generaliz ed anxiety disorder; Note: Date Diagnosed : 07/21/2020 12:33 PM (F41.1) Not Available [facility] 4 02:38:56 Acute conjuncti vitis of left eye 01926734641 9105 Active 2018 Unspecifi ed acute conjuncti vitis, left eye; Note: Date Diagnosed : 05/08/2019 9:19 AM (H10.32) Not Available [facility] 4 02:38:49 Dysphonia 67134124 Active 2017 Hoarsenes s; Note: Date Diagnosed : 07/17/2017 10:55 AM (R49.0) Not Available [facility] 4 02:38:50 Polyp of nasal cavity 172102540 Active 2018 Polyp of nasal cavity; Note: Date Diagnosed : 01/16/2019 3:26 PM (J33.0) Not Available [facility] 4 02:38:56 Loss of sense of smell 01361333 Active 2018 Anosmia; Note: Date Diagnosed : 01/16/2019 3:26 PM (R43.0) Not Available [facility] 4 02:38:52 Disorder of smell 559297285 Active 2018 Other disturban amber of smell and taste; Note: Date Diagnosed : 9 3:18 PM (R43.8) Not Available [facility] 4 02:38:55 Disorder of taste 882804613 Active 2018 Other disturban amber of smell and taste; Note: Date Diagnosed : 9 3:18 PM (R43.8) Not Available [facility] 4 02:38:55 Nasal congestio n 20890853 Active 2017 Nasal congestio n; Note: Date Diagnosed : 07/17/2017 10:55 AM (R09.81) Not Available [facility] 4 02:39:02 Chronic pansinusi tis 29910234 Active 2017 Chronic pansinusi tis; Note: Changed from J32.9 to J32.4 ( 8 11:52 AM) , Date Diagnosed : 07/17/2017 10:54 AM (J32.9) Not Available [facility] 4 02:38:45 Snoring 54980035 Active 2017 Snoring; Note: Date Diagnosed : 07/17/2017 10:55 AM (R06.83) Not Available [facility] 4 02:38:49 Deviated nasal septum 566770146 Active 2017 Deviated nasal septum; Note: Date Diagnosed : 07/17/2017 10:55 AM (J34.2) Not Available [facility] 4 02:38:56 Acute conjuncti vitis of right eye 27860998570 9102 Active 2017 Unspecifi ed acute conjuncti vitis, right eye; Note: Date Diagnosed : 08/26/2017 12:26 PM (H10.31) Not Available [facility] 4 02:38:53 Hypertrop hy of nasal turbinate s 90301501 Active 2017 Hypertrop hy of nasal turbinate s; Note: Date Diagnosed : 07/17/2017 10:54 AM (J34.3) Not Available [facility] 4 02:39:01 Essential hypertens ion 70136973 Active 2017 Essential (primary) hypertens ion; Note: Date Diagnosed : 08/26/2017 9:25 AM (I10) Not Available [facility] 4 02:38:54 Follow-up visit Active 2018 Medical surveilla nce following completed treatment ; Note: Date Diagnosed : 9 12:02 PM (Z09) Not Available [facility] 4 02:39:00 Chronic sinusitis 10101364 Active 2023 RODGER HIGH MD [address], [place], [address] , [facility] - [facility] 4 09:02:23 Chronic rhinosinu sitis with multiple nasal polyps Active 2024 AURORA GRANDE MD [address], [place], [address] , [place] - [facility] 5 09:31:22 Hearing change 800444271 Active 2024 AURORA GRANDE MD [address] [facility], [place], [address] , [facility] - [facility] 5 10:15:12 Chronic maxillary sinusitis 09702936 Active 2024 Mirian ortiz [place] - [facility] [place] 5 11:39:23 Problem Notes None recorded. Procedures Surgical History Date Name Laterality Status Provider Name and Address Organization Details Recorded Time 08/04/19 25 otomicroscopy completed AURORA GRANDE MD [address] [facility], [place], [address], [facility] - [facility] 08/04/2024 09:30:14 04/20/20 24 JMSNasal/Sinus Endoscopy-PRIOR surgical cavities completed RODGER BENAVIDES MD [address] [facility], [place], [address], [facility] - [facility] 04/20/2024 09:04:09 functional endoscopic sinus surgery completed RODGER BENAVIDES MD [address] [facility],[place] [address], [place], [address], [facility] - [facility] 04/17/2024 22:22:02 open stone operation on kidney or renal pelvis completed RODGER BENAVIDES MD [address] [facility] [address], [place], [address], [facility] 04/17/2024 22:22:17 Imaging Results None recorded. Procedure Notes None recorded. Medical Equipment None Reported. Allergies Allergen ID Allergen Name Allergen Category Reaction Reaction Severity Criticality Documentation Date Start Date Code Code System Note Provider Name and Address Organization Details Recorded Time 906827 meperidin e hydrochlo ride medicatio n other Not available Not available 11/12/2023 54981 5 RxNorm React ion: unkno wn, unspe cifie d;; Not Available [facility] 4 01:07:08 753057 Demerol medicatio n Not available Not available Not available 04/20/2024 [address] [facility] 4 08:53:15 Medications Name Sig Start Date Stop Date Status Note LastModified by Organization Details LastModified Time bicalutam sharda 50 mg tablet TAKE 1 TABLET BY MOUTH EVERY DAY NOW UNTIL THE END OF RADIATIO N 04/20 completed Not Available Not Available Not Available prednison e 10 mg tablet 4 tablet by mouth 04/26 completed Medicati on ID: [id number] D uration Value: 5 Brand Name: predniso [...] by mouth 04/20 completed Medicati on ID: [id number] D uration Value: 10 Pres[address] bed By [...] e 50 mcg/actua tion nasal spray,nolberto pension [place] 1 spray twice a day by intranas al route. active Not Available Not Available No t Available sertralin e 50 mg tablet 04/20 completed Medicati on ID: [id number] B rand Name: sertrali ne Send Method: [...] mg tablet 01/16 completed Medicati on ID: [id number] D uration Value: 2 Brand Name: oxycodon [...] Updated DateTime 04/20/2024 182.88 cm 39.7 kg/m2 858747.[address] [facility] 04/20/2024 08:53:02 Date Recorded Body height Body mass index (BMI) Body weight Provider Name and Address Organization Details Last Updated DateTime 08/04/2024 182.88 cm 39.6 kg/m2 284286.[address] [facility] 08/04/2024 09:03:20 Social History None recorded. Functional Status None recorded. Mental Status None recorded. Family History Nothing Reported. Medical History Condition Response Nasal or Sinus Problems Y Cancer Y Depression Y Past Encounters Encounter ID Performer Location Encounter Start Date Encounter Closed Date Diagnosis/Indication Diagnosis SNOMED-CT Code Diagnosis ICD10 Code Diagnosis Note [id number] RODGER HIGH MD [facility] [address] [address] 04/20/2024 08:42:18 04/20/2024 09:12:40 Polyp of nasal cavity 208212120 J33.0 Chronic sinusitis 056637 00 J32.9 [id number] AURORA GRANDE MD [facility] [address] [place] [address] 08/04/2024 08:55:09 08/04/2024 09:34:30 Chronic rhinosinusitis with multiple nasal polyps 7185964592 J32.9 Hearing change 817156038 R44.9 Health Concerns Section Related Observation LastModified by Organization Detai ls LastModified Time None Recorded Concern Status LastModified by Organization Details LastModified Time None Recorded Advance Directives Directive None Recorded Payers Encounter Date Sequence Insurance Name Policy Number Policy Appiah Covered Member ID Appiah Member ID Guarantor Name 04/20/2024 1 [facility] Brett Hagen [id number] Brett Torresi 08/04/2024 1 [facility] Hieu [id number] Brett Hagen Notes Date Note Type [...] 6 monthsIssue with Depression RODGER BENAVIDES MD [address] [place] [address], [phone], [facility] - [facility] 04/20/2024 09:06:45 08/04/2024 text/html 64yo gentleman verenice [...] otologic infections, otologic surgeries. AURORA GRANDE MD [address] [place] [address], [address], [facility] - [facility] 08/04/2024 10:15:39
--- OUTSIDE RECORDS SUMMARY | 2024-10-09 11:20 | XMS_ITS | Clinical Summary ---
Author Organization [facility] Address [address] [place] [phone] Phone Care Team Providers Care Ballistics Tester Name Role Phone Hasmukh Encinas MD Primary Care Provider [phone] Allergies Active Allergy Reactions Criticality Noted Date [...] propionate (FLONASE) 50 mcg/actuation nasal spray 1 [place] by Each Nare route daily for 360 [...] with anxiety 12/23/2018 Type II diabetes mellitus, w ell controlled ([facility] V24, [facility] V28) 05/03/2016 Morbid obesity ([facility] V24, [facility] V28) 2013 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 Chronic liver disease 08/06/2005 Overview (06/05/2024): IMO update Hypertension 08/06/2005 Encounters Date Type Department Care Team Description 10/07/2024 Telephone Adult Medicine [address] [phone] Hasmukh Encinas MD Referral 08/28/2024 1:15 PM EST Office Visit Adult Medicine [address] [phone] Hasmukh Encinas MD Type II diabetes mellitus, well controlled ([facility] V24, [facility] V28) (Primary Dx); Primary hypertension; Pure hypercholesterolemia; Encounter for long-term (current) use of medications; Microalbuminuria; Prostate cancer ([facility]/HCC V24, [facility]/HCC V28) 07/31/2024 Telephone Adult Medicine [address] [phone] Hasmukh Encinas MD Referral from Last 3 [...] repair l middle finger COLONOSCOPY 07/11/2012 PROCEDURE: [place] COLONOSCOPY FLX DX W/COLLJ SPEC WHEN PFRMD; [...] 8:30 AM EDT Office Visit Adult Medicine [address] [phone] Arcelia Chavez PA [address] [place] [address] Health Maintenance Due Date Last Done Comments [...] Influencers of Health Screening 06/09/2022 COVID-19 Vaccine ( - 2023-2 5 season) 2024 06/26/2021, 11/03/2020, 10/12/2020 Diabetes: [...] age to complete this topic Meningococcal B Vaccine Aged Out No l onger eligible based on patient's age to complete [...] EST Type II diabetes mellitus, well controlled (CMS/HCC V24, CMS/HCC V28) LIPID PANEL WITH REFLEX TO DIRECT LDL Routine 08/28/2024 1:52 PM EST Pure hypercholesterolemia COMPREHENSIVE METABOLIC PANEL Routine 08/28/2024 1:52 PM EST Type II diabetes mellitus, well controlled (CMS/HCC V24, CMS/HCC V28) Primary hypertension Encounter for long-term (current) use of medications MICROALBUMIN CREATININE URINE RATIO Routine 08/28/2024 1:52 PM EST Type II diabetes mellitus, well controlled (CMS/HCC V24, CMS/HCC V28) HEPATITIS C SCREENING Routine 05/01/2016 from Last 3 Months or Most Recently Relevant to Health Maintenance Results * (ABNORMAL) Lipid panel with reflex to direct LDL (08/28/2024 1:52 PM EST) Cholesterol 139 0 - 200 mg/dL LAB CHEMISTRY METHOD 08/28/2024 8:17 PM EST [facility] Triglycerides 257(H) 0 - 150 mg/dL LAB CHEMISTRY METHOD 08/28/2024 8:17 PM EST [facility] HDL 45 >=40 mg/dL LAB CHEMISTRY METHOD 08/28/2024 8:17 PM EST [facility] LDL Calculated 43 0 - 100 mg/dL LAB CHEMISTRY METHOD 08/28/2024 8:17 PM EST [facility] VLDL Cholesterol Jg 51.4 mg/dL LAB CHEMISTRY METHOD 08/28/2024 8:17 PM EST [facility] Non HDL Chol. (LDL+VLDL) 94 <145 mg/dL LAB CHEMISTRY METHOD 08/28/2024 8:17 PM EST [facility] Chol/HDL Ratio 3.1 0.0 - 4.4 LAB CHEMISTRY METHOD 08/28/2024 8:17 PM EST [facility] Blood Venous blood specimen / Unknown Venipuncture / Unknown 08/28/2024 1:52 PM EST 08/28/2024 1:52 PM EST us Hasmukh Encinas MD LAB BLOOD ORDERABLES Final Resu lt [facility] [address] [place] [address], * Microalbumin creatinine urine ratio (08/28/2024 1:52 PM EST) Creatinine, Urine 68.0 mg/dL LAB CHEMISTRY METHOD 08/28/2024 6:01 PM EST [facility] Microalb, Ur <5.0 0.0 - 29.0 mg/L LAB CHEMISTRY METHOD 08/28/2024 6:01 PM EST [facility] Microalb/Creat Ratio <7 <30 mg/g creat LAB CHEMISTRY METHOD 08/28/2024 6:01 PM EST [facility] Urine Urine specimen obtained by clean catch procedure / Unknown Non-blood Collection / Unknown 08/28/2024 1:52 PM EST 08/28/2024 1:52 PM EST us Hasmukh Encinas MD LAB URINE ORDERABLES Final Resu lt Performing Organization Address [facility] [place]/[facility]/ZIP Co de Phone Number [facility] [address] [place] [address], [place] [phone] * (ABNORMAL) Hemoglobin A1c (08/28/2024 1:52 PM EST) Hemoglobin A1C 7.2(H) <6.5 % LAB CHEMISTRY METHOD 08/31/2024 9:38 PM EST [facility] Mean Bld Glu Estim. 160 mg/dL LAB CHEMISTRY METHOD 08/31/2024 9:38 PM EST [facility] Blood Venous blood specimen / Unknown Venipuncture / Unknown 08/28/2024 1:52 PM EST 08/28/2024 1:52 PM EST us Hasmukh Encinas MD LAB BLOOD ORDERABLES Final Resu lt Performing Organization Address City/[facility]/ZIP Co de Phone Number [facility] [address] [place] [address], [place] [phone] * (ABNORMAL) Comprehensive metabolic panel (08/28/2024 1:52 PM EST) Sodium 137 133 - 145 mmol/L LAB CHEMISTRY METHOD 08/28/2024 8:17 PM EST [facility] Potassium 4.2 3.5 - 5.5 mmol/L LAB CHEMISTRY METHOD 08/28/2024 8:17 PM [facility] Chloride 102 96 - [...] LAB CHEMISTRY METHOD 08/28/2024 8:17 PM EST [facility] Albumin 3.8 3.2 - 5.0 g/dL LAB CHEMISTRY METHOD 08/28/2024 8:17 PM EST [facility] Total Bilirubin 0.5 0.0 - 1.4 mg/dL LAB CHEMISTRY METHOD 08/28/2024 8:17 PM EST [facility] Blood Venous blood specimen / Unknown Venipuncture / Unknown 08/28/2024 1:52 PM EST 08/28/2024 1:52 PM EST Hasmukh Encinas MD LAB BLOOD ORDERABLES Final Resu lt [facility] [address] [place] [address], * Hepatitis C Screening (05/01/2016) Hepatitis C Screening Abstracted Historical Provider HEALTH MAINTENANCE Final Result from Last 3 Months or Most Recently Relevant to Health Maintenance Insurance [facility] Care Teams Ballistics Tester Relationship Specialty Start Date End Date Hasmukh Encinas MD [address] [place] [phone] PCP - General Internal Medicine 03/15/20
--- OUTSIDE RECORDS SUMMARY | 2024-10-09 11:21 | XMS_ITS | Encounter Summary ---
Author Organization [facility] Address [id number] [place] [phone] Care Team Providers Care Legislative Correspondent Name Role Phone Hasmukh Encinas MD Primary Care Provider [phone] Reason for Referral * Consultation (Routine) - Pending Review Specialty Diagnoses / Procedures Referred By Ewelina mathias Referred To Contact Radiation Oncology Diagnoses Prostate cancer ([facility]/HCC V24, [facility]CC V28) Hasmukh Encinas MD [address] [place] [phone] Phone: tel: fax: Solomon Rodriguez MD [facility] [address] [place] [phone] Phone: tel: fax: Referral ID Status Reason Start Date Expiration Date Visits Requested Visits Authorized [id number] Pending Review Specialty Services Required 10/08/2024 10/08/2025 1 1 Scheduling Instructions [facility] Phone # of Specialist: [phone] option 3 Fax #: (if applicable): [phone] Reason for Visit * Reason Onset Date Comments Referral 10/07/2024 Encounter Details Date Type Department Care Team ([facility] st Contact Info) Description 10/07/2024 Telephone Adult Medicine [address] [phone] Hasmukh Encinas MD [address] [place] [phone] Referral Social History Tobacco Use Types Packs/Day Years Used Date Smoking Tobacco: Never Smokeless Tobacco: Never Alcohol Use Standard Drinks/Week Comments Yes 0 (1 standard drink = 0.6 oz pur e alcohol) Sex and Gender Information Value Date Recorded Sex Assigned at Not on file Legal Sex Male 5:52 AM EST Gender Identity Not on file Sexual Orientation Not on file documented as of this encounter Progress Notes * Hasmukh Encinas MD - 10/08/2024 5:55 PM EDT Referral placed * Farnaz Bonny - 10/07/2024 2:36 PM EDT Referral Request: What insurance does the patient have today? [facility] Referrals cannot be processed if the insurance is not accurate. If the insurance listed above in red is NO BILLING INFORMATION FOUND FOR THIS ENCOUTNER The patients correct insurance must be obtained and registered in [facility] or their referral can not be processed. Who is calling to request this referral? Emy from [facility] If the caller is not the patient, what is their name? Emy Ask the patient WHO referred them to this specialty: Not an initial visit; it is for follow up/continuation of care. Patients PCP is Dr. Encinas FIRST and LAST NAME of SPECIALIST PATIENT is seeing: Solomon Rodriguez What specialty is this? Radiology DIAGNOSIS Patient is being seen for (Not a body part or a procedure): Prostate Cancer Have you seen this SPECIALIST for this PROBLEM/DX before? If YES, when? Yes. 04/03/2024 Have you checked REVIEW or the APPT DESK to see if this referral has already been done or has visits left? yes Is this visit: Follow Up Address of Specialist: [address] [place] [address] Phone # of Specialist: [phone] option 3 Fax #: (if applicable): [phone] Does patient have an appointment scheduled?: yes Date of appointment- (including a retro-request): 10/15/2024 Is this appointment related to: Not MVA, worker compensation, or surgery related documented in this encounter Plan of Treatment Upcoming Encounters Date Type Department Care Team (Late st Contact Info) Description 02/23/2025 8:30 AM EDT Office Visit Adult [facility] [address] [place] [phone] Arcelia Chavez PA [address] [place] [phone] Scheduled Referrals Name Type Priority Associated Diagnoses Order Schedule Ambulatory referral to Radiation Oncology Outpatient Referral Routine Prostate cancer (CMS/HCC V24, CMS/HCC V28) Expected: 10/15/2024, Expires: 10/07/2025 documented as of this encounter Visit Diagnoses Diagnosis Prostate cancer (CMS/HCC V24, CMS/HCC V28)- Primary Malignant neoplasm of prostate documented in this encounter Care Teams Legislative Correspondent Relationship Specialty Start Date End Date Hasmukh Encinas MD [address] [place] [phone] PCP - General Internal Medicine 03/15/20 documented as of this encounter
== END 2024-10-09 11:19 | disposition home or self-care (01) ==
LOC: HO.HUSH 10:30
PROVIDERS: PCP Internal Medicine; Visit Provider Urology
DX: C61 Malignant neoplasm of prostate (principal); Z13.9 Encounter for screening, unspecified
CPT/HCPCS: 99213

== ENCOUNTER → 2024-10-09 10:30 | Outpatient (BNVA) | payer OTHER, SELFPAY | PROVIDERS: PCP Internal Medicine; Visit Provider Urology | DX: C61 Malignant neoplasm of prostate (principal) | CPT/HCPCS: 81003 ==

== ENCOUNTER 2025-02-01 08:32 | Outpatient (REF) | payer OTHER, SELFPAY ==
[2025-02-01 10:08] LABS: Prostate Specific Antigen < 0.10 ng/mL (<0.05-4.0)
== END 2025-02-01 08:33 | disposition home or self-care (01) ==
LOC: HO.LAB 08:32
PROVIDERS: PCP Internal Medicine; Visit Provider Urology
DX: C61 Malignant neoplasm of prostate (principal)
CPT/HCPCS: 36415; 84153

== ENCOUNTER 2025-02-09 09:06 | Outpatient (AMB) | payer OTHER, SELFPAY ==
--- NOTE | 2025-02-09 09:07 | MHC.OFFVIS ---
Intake Visit Reasons: 4m/labs Intake Note: Patient is present for 4M/LABS Urology Medication:FINASTERIDE Antibiotic Allergy:NONE Blood Thinner:NONE LABS DONE 02/01/25 : PSA <0.10 Banking Attorney Required: No Accompanied by: Self / Same As Patient Allergies meperidine (Demerol) Allergy (Unknown, Verified 02/09/25 09:08) Unknown HPI Comments Details: Mr Hagen is a very pleasant male. He is a patient of Dr Encinas. He is seen for the following urologic conditions. - lower urinary tract symptoms - nephrolithiasis Telemedicine Evaluation 15 min Consultation [employer] PSA remains stable Has regained weight Discussed GLP 1 Given the hormone disturbance from GnRH and antiandrogen this would be a good idea Four month follow-up 10/23 <0.1 T8, 02/22 <0.1 07/25 <0.1 Feels his GnRH slowly wearing off as his emotions becoming more under control Can stop finasteride Check lab work in three-month 03/24 P <0.1 T 7 Continue good response Here for last GnRH 12/22 P <0.1 T 3 Continue good response Minimal symptoms Has come off abiraterone and is feeling more energy given his job Plan three-month follow-up for lab work and GnRH 09/21 P <0.1, T<1 Current therapy GnRH with abiraterone and external beam radiation HbA1c has risen 1.0 points, potassium issues Oncology have given potassium Second GnRH injection provided Continue finasteride Given diabetic complications from GnRH + antiandrogen will consider ceasing antiandrogen in 3 months based on HbA1c response Working at [employer] - greatly improved his outlook on life - had an issue with a female co-worker Prostate Cancer - High risk, clinically localized - external beam radiotherapy with radiation oncology Dr. Rodriguez [facility], Medical Oncology [facility] Dr. Love - 08/24 03/23 GnRH, 09/21 GnRH, 03/24 GnRH Diagnosed 01/20 Dr Escamilla No family history of prostate cancer TRUS - 01/20 55gm PSA 4.7 F 11% on finasteride [place] score: 5+4=9 (left apex lateral, left apex medial), 4+5=9 (left mid lateral, left mid medial), 3+5=8 (Left base medial), 3+4=7 (left base lateral) Tumor quantitation: Number cores positive: 6 Total number of cores: 12 % of tissue involved: 40% (all on the left) Periprostatic fat inv.: Not identified Seminal vesicle inv.: Not identified Perineural inv.: Present LVI: Not identified Staging 02/20 Bone scan negative 02/20 MRI 2 cm lesion, abutting capsule, no evidence of seminal vesicle involvement, 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 PSA 06/18 4.8, 08/20 3.8, 08/21 4.4, 03/21 7.2, 05/21 4.5 finasteride, 12/21 4.7 11% Cystoscopy - 05/21 open bladder neck with high bladder lip Nephrolithiasis/Urolithiasis: They are here for further evaluation of nephrolithiasis Urolithiasis was diagnosed 2010. The patient previously had kidney stones whose composition w unknown. Laboratory investigations include no recent labs. 24 Hour urine evaluation none on file. Prior treatment(s) include observation, with dietary advice to increase fluids, decrease salt and watch protein intake , ESWL 04/10 right side. Prior imaging includes November 2015 a KUB x-ray, showing no evidence of stones December 2016, a KUB x-ray, showing no evidence of stones 01/15 , a renal ultrasound, right 2cm cyst, left 4x3mm stone 08/19 , a renal ultrasound, stable cyst and stoned in left kidney 08/20 , a renal ultrasound, stable cysts and no stones - 03/21 renal ultrasound bilateral renal cyst right 5 cm, left 2 cm. No stone - 01/19 renal ultrasound stable cysts, question 4 mm right stone UA today shows 5.5-6.0, low pH suggestive of higher protein load, high specific gravity suggestive of relative dehydration. Current therapeutic plan will be to continue with imaging surveillance at appropriate interval [facility] Medical History Elevated PSA Benign prostatic hyperplasia with lower urinary tract symptoms Poor urinary stream History of urinary hesitancy Weak urinary stream Surgical History H/O hand surgery Hx of lithotripsy Family History Father No problems noted. Mother Cancer Arthritis of knee Review of Systems Const All systems reviewed & are unremarkable except as noted in HPI and below Reports no additional complaints Resp Reports no additional complaints GI Reports no additional complaints Reports as per HPI Musc Reports no additional complaints Physical Exam Telemedicine evaluation Appropriate responses Regular breathing rate and rhythm HEENT Head: Yes normal to inspection Ears: hearing grossly normal bilaterally Eyes General: appearance normal, both eyes and all related structures Neck Neck: Yes normal visual inspection Chest Chest palpation & inspection: normal inspection of the chest Resp Effort & Inspection: normal respiratory effort and able to speak in complete sentences Telehealth Telehealth Location of provider rendering services: practice address Location of patient: address on file Patient Identification confirmed using: Name, : Yes Telehealth method: voice only Patient verbally consented to treatment: Yes Patient verbally consented to billing insurance company: Yes Patient informed of any privacy concerns related to visit: Yes Assessment & Plan Assessment & Plan (1) Prostate cancer: Comment: High Grade Code(s): C61 - Malignant neoplasm of prostate Category: Medical Plan Four month follow-up lab work Orders: Orders Testosterone, Total 4 Months C61 - Malignant neoplasm of prostate Prostate Specific Antigen 4 Months C61 - Malignant neoplasm of prostate Patient Instructions: This note is constructed using voice recognition software. While every effort has been made to ensure accuracy roaster operator errors may have been included. Imaging studies, laboratory and physical exam results were discussed and reviewed in detail. No major barriers to patient understanding were identified. An opportunity to ask questions regarding the treatment plan was provided. All questions were answered. The patient expressed understanding and agreement with the above treatment plan. The patient is aware they should contact our office by phone for worsening of their current condition or the appearance of new urologic symptoms. Compliance is encouraged with any medications and followup testing that is ordered. It is a privilege to participate in the urologic care of your patient. If you have any questions or concerns regarding treatment for the above conditions, or other urologic issues, please do not hesitate to contact me. The office telephone contact is [phone]. Sincerely, Dr Kevin Escamilla MD, [facility] - Urology Compassionate Specialist Care for the Genitourinary System Coding Level of Care Code Tele Est Pt Level 3 (38511) Complex EM visit Add On G2211 Diagnoses Prostate cancer C61
--- OUTSIDE RECORDS SUMMARY | 2025-02-09 09:39 | XMS_ITS | Clinical Summary ---
Author Organization [facility] Address [address] [place] [phone] Phone Care Team Providers Care Manager Billing Name Role Phone Hasmukh Encinas MD Primary Care Provider [phone] Allergies Active Allergy Reactions Criticality Noted Date Comments Meperidine Hcl Hallucinations,Nausea And Vomiting 08/06/2005 Medications ONETOUCH DELICA LANCETS MISC Apply 1 Stick topically 3 times daily. 7 Active cholecalciferol (VITAMIN D-3) 50 mcg (2,000 unit) tablet Take 1 Tablet by mouth daily. 3 Active diclofenac (VOLTAREN) 1 % topical gel 3 Active finasteride (PROSCAR) 5 mg tablet 0 Active fluticasone propionate (FLONASE) 50 mcg/actuation nasal spray 1 [place] by Each Nare route daily for 360 days. 4 Active atorvastatin (LIPITOR) 20 mg tablet TAKE 1 TABLET BY MOUTH EVERYDAY AT BEDTIME 90 tablet 1 5 Active hydroCHLOROthia zide (HYDRODIURIL) 25 mg tablet TAKE 1 TABLET BY MOUTH EVERY DAY 90 tablet 1 5 Active amLODIPine (NORVASC) 5 mg tablet TAKE 1 TABLET BY MOUTH EVERY DAY 90 tablet 1 5 Active nadoloL (CORGARD) 80 mg tablet TAKE 1 TABLET BY MOUTH EVERY DAY 90 tablet 1 5 Active doxycycline (VIBRAMYCIN) 100 mg capsule Take 1 capsule (100 mg total) by mouth 2 (two) times a day for 10 days. Take with at least 8 ounces (large glass) of water, do not lie down for 30 minutes after. Administer 2 hours before or after multivitamins, antacids, or other products containing polyvalent cations (i.e., calcium, iron, magnesium, selenium, zinc). 20 each 5 02/07/20 25 Active Problems Problem Noted Date Diagnosed Date Elevated PSA 01/29/2023 BPH (benign prostatic hyperplasia) 01/05/2022 Overview (06/05/2024): Elevated psa, follows with dr. 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 Chronic liver disease 08/06/2005 Overview (06/05/2024): IMO update Hypertension 08/06/2005 Encounters Date Type Department Care Team Description 01/27/2025 11:30 AM EDT Office Visit Adult Medicine [address] [phone] Karma Santillan MD Cellulitis of lower extremity, unspecified laterality (Primary Dx); Type II diabetes mellitus, well controlled ([facility] V24, [facility] V28); Primary hypertension 01/27/2025 Nurse Triage Adult Medicine [address] [phone] Hasmukh Encinas MD Cellulitis; Leg Swelling from Last 3 Months Immunizations Name Administration Dates Next Due Pneumococcal polysaccharide 23 valent (Pneumovax 23) 2yo and older 06/20/2018 Td Tetanus diptheria (Tdvax) 7yo and older 06/29 Tdap Tetanus diptheria acell ular pertussis (Boostrix; Adacel) 7yo and older 01/27/2009 Surgical History Surgery Date Site/Laterality Comments HAND SURGERY 1991 PROCEDURE: HISTORICAL HAND SURGERY; COMMENT: nerve repair l middle finger COLONOSCOPY 07/11/2012 PROCEDURE: TX COLONOSCOPY FLX DX W/COLLJ SPEC WHEN PFRMD; [...] Sign Reading Time Taken Comments Blood Pressure 120/62 01/27/2025 11:10 AM EDT Pulse 59 01/27/2025 11:10 AM EDT Temperature 36 C (96.8 F) 01/27/2025 11:10 AM EDT Respiratory Rate 18 01/27/2025 11:10 AM EDT Oxygen Saturation 94% 01/27/2025 11:10 AM EDT Inhaled Oxygen Concentration - - Weight 144 kg (318 lb 6.4 oz) 01/27/2025 11:10 A M EDT Height 182.9 cm (6') 01/27/2025 11:10 AM EDT Body Mass Index 43.18 01/27/2025 11:10 AM EDT Plan of Treatment Upcoming Encounters Date Type Department Care Team (Late st Contact Info) Description 02/23/2025 8:30 AM EDT Office Visit Adult Medicine [facility] [address] [place] [phone] Arcelia Chavez PA [address] [place] [address] Health Maintenance Due Date Last Done Comments Diabetes: Annual Foot Exam 02/07/1972 Diabetes: Annual Retina Eye Exam 02/07/1972 Zoster Vaccines (1 of 2) 1981 Pneumococcal Vaccine: 50+ Years (2 of 2 - PCV) 06/20/2019 06/20/2018 RSV Immunization Adult Patients (1 - Risk 60-74 years 1-dose series) 2022 Colorectal Cancer Screening: Colonoscopy 06/09/2022 HIV Screening 06/09/2022 Social Influencers of Health Screening 06/09/2022 COVID-19 Vaccine ( season) 2024 06/26/2021, 11/03/2020, 10/12/2020 Depression Screening 07/01/2024 Influenza Vaccine (#1) 2025 Diabetes: Blood Sugar Control Test (HGBA1C) 07/30/2025 01/27/2025, 08/28/2024, 02/25/2024, Additional history exists Diabetes: Annual Urine Albumin-Creatinine Ratio (uACR) 08/28/2025 [...] 20 months Aged Out No longer eligible based on patient's age to complete this topic Varicella Vaccines Aged Out No longer eligible based on patient's age to complete this topic Procedures Procedure Name Priority Date/Time Associated Diagnosis Comments HEMOGLOBIN A1C Routine 01/27/2025 11:40 AM EDT Type II diabetes mellitus, well controlled ([facility] V24, [facility] V28) MICROALBUMIN CREATININE URINE RATIO Routine 08/28/2024 1:52 PM EST Type II diabetes mellitus, well controlled (CMS/HCC V24, CMS/[facility] V28) COMPREHENSIVE METABOLIC PANEL Routine 08/28/2024 1:52 PM EST Type II diabetes mellitus, well controlled (CMS/HCC V24, CMS/HCC V28) Primary hypertension Encounter for long-term (current) use of medications LIPID PANEL WITH REFLEX TO DIRECT LDL Routine 08/28/2024 1:52 PM EST Pure hypercholesterolemia HEPATITIS C SCREENING Routine 05/01/2016 from Last 3 Months or Most Recently Relevant to Health Maintenance Results * (ABNORMAL) Hemoglobin A1c (01/27/2025 11:40 AM EDT) Hemoglobin A1C 7.4(H) <6.5 % LAB CHEMISTRY METHOD 01/27/2025 8:39 PM EDT [facility] Mean Bld Glu Estim. 166 mg/dL LAB CHEMISTRY METHOD 01/27/2025 8:39 PM EDT [facility] Blood Venous blood specimen / Unknown Venipuncture / Unknown 01/27/2025 11:40 AM EDT 01/27/2025 11:40 AM EDT us Karma Santillan MD LAB BLOOD ORDERABLES Final Resul t [facility] [address] [place] [address], [place] [phone] * (ABNORMAL) Lipid panel with reflex to direct LDL (08/28/2024 1:52 PM EST) Cholesterol 139 0 - 200 mg/dL LAB CHEMISTRY METHOD 08/28/2024 8:17 PM [facility] Triglycerides 257(H) 0 - 150 mg/dL LAB CHEMISTRY METHOD 08/28/2024 8:17 PM EST [facility] HDL 45 >=40 mg/dL LAB CHEMISTRY METHOD 08/28/2024 8:17 PM EST [facility] LDL Calculated 43 0 - 100 mg/dL LAB CHEMISTRY METHOD 08/28/2024 8:17 PM EST [facility] VLDL Cholesterol Jg 51.4 mg/dL LAB CHEMISTRY METHOD 08/28/2024 8:17 PM EST [facility] Non HDL Chol. (LDL+VLDL) 94 <145 mg/dL LAB CHEMISTRY METHOD 08/28/2024 8:17 PM EST [facility] Chol/HDL Ratio 3.1 0.0 - 4.4 LAB CHEMISTRY METHOD 08/28/2024 8:17 PM [facility] Blood Venous blood specimen / Unknown Venipuncture / Unknown 08/28/2024 1:52 PM EST 08/28/2024 1:52 PM EST us Hasmukh Encinas MD LAB BLOOD ORDERABLES Final Resu lt [facility] [address] [place] [address], [place] [phone] * Microalbumin creatinine urine ratio (08/28/2024 1:52 PM EST) Creatinine, Urine 68.0 mg/dL LAB CHEMISTRY METHOD 08/28/2024 6:01 PM EST [facility] Microalb, Ur <5.0 0.0 - 29.0 mg/L LAB CHEMISTRY METHOD 08/28/2024 6:01 PM EST [facility] Microalb/Creat Ratio <7 <30 mg/g creat LAB CHEMISTRY METHOD 08/28/2024 6:01 PM EST [facility] Urine Urine specimen obtained by clean catch procedure / Unknown Non-blood Collection / Unknown 08/28/2024 1:52 PM EST 08/28/2024 1:52 PM EST Hasmukh Encinas MD LAB URINE ORDERABLES Final Resu lt Performing Organization Address City/[facility]/ZIP Co de Phone Number [facility] [address] [place] [address], [place] [phone] * (ABNORMAL) Comprehensive metabolic panel (08/28/2024 1:52 PM EST) Sodium 137 133 - 145 mmol/L LAB CHEMISTRY METHOD 08/28/2024 8:17 PM EST [facility] Potassium 4.2 3.5 - 5.5 mmol/L LAB CHEMISTRY METHOD 08/28/2024 8:17 PM EST [facility] Chloride 102 96 - 110 mmol/L LAB CHEMISTRY METHOD 08/28/2024 8:17 PM EST [facility] CO2 27 21 - 32 mmol/L LAB CHEMISTRY METHOD 08/28/2024 8:17 PM EST [facility] Anion Gap 8 3 - 11 LAB CHEMISTRY METHOD 08/28/2024 8:17 PM [facility] Glucose 132(H) 70 - 100 mg/dL LAB CHEMISTRY METHOD 08/28/2024 8:17 PM [facility] BUN 15 5 - 25 mg/dL LAB CHEMISTRY METHOD 08/28/2024 8:17 PM [facility] Creatinine 1.02 0.70 - 1.30 mg/dL LAB CHEMISTRY METHOD 08/28/2024 8:17 PM [facility] eGFR 83 >=60 mL/min/1. 73m2 LAB CHEMISTRY METHOD 08/28/2024 8:17 PM [facility] Comment:Calculation based on the Chronic Kidney Disease Epidemiology Collaboration (CKD-EPI) equation refit without adjustment for race. BUN/Creatinine Ratio 14.7 LAB CHEMISTRY METHOD 08/28/2024 8:17 PM [facility] Calcium 9.8 8.5 - 10.5 mg/dL LAB CHEMISTRY METHOD 08/28/2024 8:17 PM [facility] AST (SGOT) 21 10 - 42 unit/L LAB CHEMISTRY METHOD 08/28/2024 8:17 PM [facility] ALT (SGPT) 46 10 - 60 unit/L LAB CHEMISTRY METHOD 08/28/2024 8:17 PM [facility] Alkaline Phosphatase 118 42 - 121 unit/L LAB CHEMISTRY METHOD 08/28/2024 8:17 PM [facility] Total Protein 7.2 6.0 - 8.0 g/dL LAB CHEMISTRY METHOD 08/28/2024 8:17 PM [facility] Albumin 3.8 3.2 - 5.0 g/dL LAB CHEMISTRY METHOD 08/28/2024 8:17 PM [facility] Total Bilirubin 0.5 0.0 - 1.4 mg/dL LAB CHEMISTRY METHOD 08/28/2024 8:17 PM [facility] Blood Venous blood specimen / Unknown Venipuncture / Unknown 08/28/2024 1:52 PM EST 08/28/2024 1:52 PM EST Hasmukh Encinas MD LAB BLOOD ORDERABLES Final Resu lt [facility] [address] [place] [address], * Hepatitis C Screening (05/01/2016) [facility] Hepatitis C Screening Abstracted Historical Provider HEALTH MAINTENANCE Final Result from Last 3 Months or Most Recently Relevant to Health Maintenance Insurance [facility] Care Teams Manager Billing Relationship Specialty Start Date End Date Hasmukh Encinas MD [address] [place] [id number] PCP - General Internal Medicine 03/15/20
== END 2025-02-09 11:52 | disposition home or self-care (01) ==
LOC: HO.HUSH 09:07
PROVIDERS: PCP Internal Medicine; Visit Provider Urology
DX: C61 Malignant neoplasm of prostate (principal)
CPT/HCPCS: 98013

== ENCOUNTER 2025-05-20 10:28 | Outpatient (REF) | payer OTHER, SELFPAY ==
[2025-05-20 12:21] LABS: Prostate Specific Antigen < 0.10 ng/mL (<0.05-4.0)
--- OUTSIDE RECORDS SUMMARY | 2025-05-20 15:25 | XMS_ITS | Data Portability ---
Author Organization [place] - [facility], Allergy Address [address] [address] Care Team Providers Care Favor Maker Name Role Phone ROLA BURGESS Referring Provider [phone] Assessment Encounter Date Assessment Date Assessment LastModified [...] next visit. [email or web address] Not available 08/04/2024 10:15:06 12/16/2024 12/16/2024 Patient with history of nasal polyps, chronic sinusitis and reduced sense of smell. Patient reports that his anxiety is preventing him from managing his medical condition. We discussed that fortunately his sense of smell is present, however, there is evidence of recurrence of the polyps. I tried to encourage him to be consistent with the budesonide irrigations. I am hopeful that that will help reverse the polypoid swelling. We will follow-up in 3 months. Audiometric testing reviewed. Mild asymmetry right compared to left. History of noise exposure. Suggest observation as he is not anxious about having an MRI at the present time. f/u audio in 6 months [email or web address] Not available 12/16/2024 14:55:59 03/17/2025 03/17/2025 Type 2 diabetes with elevated hemoglobin A1c: The patient's hemoglobin A1c is elevated at 7.4, and medication management is being considered due to challenges with lifestyle modifications. The patient is advised to follow up with his primary care provider for further evaluation and management. Nasal polyps: The patient is advised to resume using Fluticasone nasal spray daily to prevent recurrence of nasal polyps. Saline rinses are recommended as an alternative to improve nasal hygiene, particularly during showers. Sleep apnea evaluation: Given the patient's disrupted sleep patterns and risk factors, including weight gain and anatomical findings, a sleep study is recommended to evaluate for sleep apnea. The patient expresses apprehension but agrees to consider both in-hospital and at-home options based on insurance coverage. Anxiety management: The patient reports occasional anxiety episodes, particularly at night. He is encouraged to discuss these symptoms further with his primary care provider or a mental health specialist for potential management strategies. Weight management: The patient is counseled on the importance of weight management to improve overall health and reduce the risk of complications associated with diabetes and sleep apnea. Referral to a sheet metal worker apprentice or weight management program may be beneficial. [email or web address] Not available 03/17/2025 14:00:03 Plan of Treatment Reminders Order Date Submit Date Provider Last Modified By Organization Details Last Modified Time Details Appointments Hearing Test 2024 01:30P M Hearing Test Not available Not available Not available Establish ed 15 2024 02:00P M GE CEDILLO PA-C Not available Not available Not available Lab ige, total, serum 2023 024 [place] [facility] (Centralized Electronic Ordering - All Locations), Patient Can Go To The Location Of Their Choice, [id number] 04/24/2024 17:08:05 CBC w/ auto diff 2023 024 [place] [facility] (Centralized Electronic Ordering - All Locations), Patient Can Go To The Location Of Their Choice, [id number] 04/24/2024 17:08:05 Referral None recorded. Procedures None recorded. Surgeries None recorded. Imaging polysomno gram 2024 025 [email or web address] [facility] Scheduling Dept, [address] [place] [address], [address], 03/25/2025 09:26:07 Medication Orders fluticaso ne propionat e 50 mcg/actua tion nasal spray,nolberto pension [address] [facility]/Pharmacy #[id number], [address] [place], [address], 03/17/2025 13:59:28 Flonase Allergy Relief 50 mcg/actua tion nasal spray,nolberto pension 2024 025 [email or web address] [facility]/Pharmacy #[id number], [address] [place], [address], 12/16/2024 13:36:15 prednison e 20 mg tablet 2023 025 [id number] [address] [place], [address], 12/16/2024 13:37:45 budesonid e 0.5 mg/2 mL suspensio n for nebulizat ion [address] [facility]/Pharmacy #[id number], [address] [place], [address], 04/20/2024 09:06:45 doxycycli ne hyclate 100 [address] [facility]/Pharmacy #[id number], [address] [place], [address], 12/16/2024 13:37:34 Patient TargetsNo targets recorded. Patient Instructions Encounter Date Encounter Id Patient Instructions Last Modified By Organization Details Last Modified Time 03/17/2025 [id number] Resume daily use of Fluticasone nasal spray. Consider saline rinses during showers to improve nasal hygiene. Follow up with primary care provider for diabetes management and anxiety symptoms. Schedule a sleep study to evaluate for sleep apnea, considering both in-hospital and at-home options. Explore weight management strategies, including referral to a sheet metal worker apprentice or weight management program. [email or web address] Not available 03/17/2025 14:00:03 Please note: Parts of this encounter note have been generated by AI based on audio conversation. Patient consent was required prior to utilizing this technology. Content review was required prior to finalizing the note. [email or web address] Not available 03/17/2025 14:00:03 Reason for Referral None Reported. Results Created Date Observation Date Name Description Value Unit Range Abnormal Flag Note LastModifiedBy Organization Detail LastModifiedTime 04/20/2004/21/2024 CBC WITH DIFFE RENTI AL/PL ATELE T WBC 5.2 x10e3 /uL 3.4-10 .8 normal Not Available [facility] ([facility]) [address] [place], [address], 04/24/2024 17:08:05 04/20/20 24 04/21/2024 CBC WITH DIFFE RENTI AL/PL ATELE T RBC 4.24 x10e6 /uL 4.14-5 .80 normal Not Available [facility] ([facility]) [address] [place], [address], 04/24/2024 17:08:05 04/20/20 24 04/21/2024 CBC WITH DIFFE RENTI AL/PL ATELE T hemoglobin 13.1 g/dL 13.0-1 7.7 normal Not Available [facility] ([facility]) [address] [place], [address], 04/24/2024 17:08:05 04/20/2004/21/2024 CBC WITH DIFFE RENTI AL/PL ATELE T hematocrit 40.2 % 37.5-5 1.0 normal Not Available [facility] ([facility]) [address] [place], [address], 04/24/2024 17:08:05 04/20/2004/21/2024 CBC WITH DIFFE RENTI AL/PL ATELE T MCV 95 fL 79-97 normal Not Available [facility] ([facility]) [address] [place], [address], 04/24/2024 17:08:05 04/20/2004/21/2024 CBC WITH DIFFE RENTI AL/PL ATELE T MCH 30.9 pg 26.6-3 3.0 normal Not Available [facility] ([facility]) [address] [place], [address], 04/24/2024 17:08:05 04/20/2004/21/2024 CBC WITH DIFFE RENTI AL/PL ATELE T MCHC 32.6 g/dL 31.5-3 5.7 normal Not Available [facility] ([facility]) [address] [place], [address], 04/24/2024 17:08:05 04/20/2004/21/2024 CBC WITH DIFFE RENTI AL/PL ATELE T RDW 13.3 % 11.6-1 5.4 Not Available [facility] ([facility]) [address] [place], [address], 04/24/2024 17:08:05 04/20/2004/21/2024 CBC WITH DIFFE RENTI AL/PL ATELE T platelets 223 x10e3 /uL 150-45 0 normal Not Available [facility] ([facility]) [address] [facility], [place], [address], 04/24/2024 17:08:05 04/20/20 24 04/21/2024 CBC WITH DIFFE RENTI AL/PL ATELE T neutrophils 76 % not estab. normal Not Available [facility] ([facility]) [address] [facility], [place], [address], 04/24/2024 17:08:05 04/20/2004/21/2024 CBC WITH DIFFE RENTI AL/PL ATELE T lymphs 10 % not estab. normal Not Available [facility] ([facility]) [address] [facility], [place], [address], 04/24/2024 17:08:05 04/20/20 24 04/21/2024 CBC WITH DIFFE RENTI AL/PL ATELE T monocytes 10 % not estab. normal Not Available [facility] ([facility]) [address] [place], [address], 04/24/2024 17:08:05 04/20/20 24 04/21/2024 CBC WITH DIFFE RENTI AL/PL ATELE T eos 3 % not estab. normal Not Available [facility] ([facility]) [address] [facility], [place], [address], 04/24/2024 17:08:05 04/20/20 24 04/21/2024 CBC WITH DIFFE RENTI AL/PL ATELE T basos 1 % not estab. normal Not Available [facility] ([facility]) [address] [place], [address], 04/24/2024 17:08:05 04/20/20 24 04/21/2024 CBC WITH DIFFE RENTI AL/PL ATELE T immature cells LEARNING ANALYST Not Available [facility] ([facility]) [address] [facility], [place], [address], 04/24/2024 17:08:05 04/20/20 24 04/21/2024 CBC WITH DIFFE RENTI AL/PL ATELE T neutrophils (absolute) 4.0 x10e3 /uL 1.4-7. 0 normal Not Available [facility] ([facility]) [address] [facility], [place], [address], 04/24/2024 17:08:05 04/20/2004/21/2024 CBC WITH DIFFE RENTI AL/PL ATELE T lymphs (absolute) 0.5 x10e3 /uL 0.7-3. 1 below low normal Not Available [facility] ([facility]) [address] [facility], [place], [address], 04/24/2024 17:08:05 04/20/20 24 04/21/2024 CBC WITH DIFFE RENTI AL/PL ATELE T monocytes(ab solute) 0.5 x10e3 /uL 0.1-0. 9 normal Not Available [facility] ([facility]) [address] [facility], [place], [address], 04/24/2024 17:08:05 04/20/20 24 04/21/2024 CBC WITH DIFFE RENTI AL/PL ATELE T eos (absolute) 0.2 x10e3 /uL 0.0-0. 4 normal Not Available [facility] ([facility]) [address] [place], [address], 04/24/2024 17:08:05 04/20/20 24 04/21/2024 CBC WITH DIFFE RENTI AL/PL ATELE T baso (absolute) 0.0 x10e3 /uL 0.0-0. 2 normal Not Available [facility] ([facility]) [address] [facility], [place], [address], 04/24/2024 17:08:05 04/20/20 24 04/21/2024 CBC WITH DIFFE RENTI AL/PL ATELE T immature granulocytes 0 % not estab. Not Available [facility] ([facility]) [address] [facility], [place], [address], 04/24/2024 17:08:05 04/20/20 24 04/21/2024 CBC WITH DIFFE RENTI AL/PL ATELE T immature grans (abs) 0.0 x10e3 /uL 0.0-0. 1 Not Available [facility] ([facility]) [address] [facility], [place], [address], 04/24/2024 17:08:05 04/20/2004/21/2024 CBC WITH DIFFE RENTI AL/PL ATELE T NRBC LEARNING ANALYST Not Available [facility] ([facility]) [address] [facility], [place], [address], 04/24/2024 17:08:05 04/20/2004/21/2024 CBC WITH DIFFE RENTI AL/PL ATELE T hematology comments: LEARNING ANALYST Not Available [facility] ([facility]) [address] [facility], [place], [address], 04/24/2024 17:08:05 04/20/2004/24/2024 IMMUN OGLOB ULIN E, TOTAL immunoglobul in E, total 49 IU/mL 6-495 Not Available [facility] ([facility]) [address] [facility], [place], [address], 04/24/2024 17:08:05 12/17/19 25 audio gram No observ ation record ed. BARCODE Not Available 2024 15:37:30 Result Notes None recorded. 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 Heidi ortiz [place] - [facility] 5 13:36:20 Morbid obesity 752637580 Active 2013 MOIZ HIGH MD [address] [place] [address], [place], [id number] , [place] - [facility] 5 13:57:12 Type 2 diabetes mellitus 81788161 Active 2015 Heidi ortiz [place] - [facility] 5 13:36:20 Dysphonia 02089822 Active 2017 Hoarsenes s; Note: Date Diagnosed : 07/17/2017 10:55 AM (R49.0) Not Available [facility] 4 02:38:50 Nasal congestio n 97852730 Active 2017 Nasal congestio n; Note: Date Diagnosed : 07/17/2017 10:55 AM (R09.81) Not Available [facility] 4 02:39:02 Chronic pansinusi tis 90993676 Active 2017 Chronic pansinusi tis; Note: Changed from J32.9 to J32.4 ( 8 11:52 AM) , Date Diagnosed : 07/17/2017 10:54 AM (J32.9) Not Available [facility] 4 02:38:45 Snoring 04051252 Active 2017 Snoring; Note: Date Diagnosed : 07/17/2017 10:55 AM (R06.83) Jerilyn rotiz [place] - [facility] 5 09:26:30 Deviated nasal septum 554247579 Active 2017 Deviated nasal septum; Note: Date Diagnosed : 07/17/2017 10:55 AM (J34.2) Not Available [facility] 4 02:38:56 Hypertrop hy of nasal turbinate s 67669005 Active 2017 Hypertrop hy of nasal turbinate s; Note: Date Diagnosed : 07/17/2017 10:54 AM (J34.3) Not Available [facility] 4 02:39:01 Acute conjuncti vitis of right eye 34634959844 9102 Active 2017 Unspecifi ed acute conjuncti vitis, right eye; Note: Date Diagnosed : 08/26/2017 12:26 PM (H10.31) Not Available [facility] 4 02:38:53 Essential hypertens ion 50288304 Active 2017 Essential (primary) hypertens ion; Note: Date Diagnosed : 08/26/2017 9:25 AM (I10) Not Available [facility] 4 02:38:54 Mixed anxiety and depressiv e disorder 255942261 Active 2018 Heidi ortiz [place] - [facility] 5 13:36:20 Polyp of nasal cavity 638473963 Active 2018 Polyp of nasal cavity; Note: Date Diagnosed : 01/16/2019 3:26 PM (J33.0) MOIZ HIGH MD [address] [place] [address], [place], [id number] [facility] - [facility] 5 13:57:18 Loss of sense of smell 10726655 Active 2018 Anosmia; Note: Date Diagnosed : 01/16/2019 3:26 PM (R43.0) Not Available [facility] 4 02:38:52 Follow-up visit Active 2018 Medical surveilla nce following completed treatment ; Note: Date Diagnosed : 9 12:02 PM (Z09) Not Available [facility] 4 02:39:00 Acute conjuncti vitis of left eye 56703215325 9105 Active 2018 Unspecifi ed acute conjuncti vitis, left eye; Note: Date Diagnosed : 05/08/2019 9:19 AM (H10.32) Not Available [facility] 4 02:38:49 Disorder of smell 552617849 Active 2018 Other disturban amber of smell and taste; Note: Date Diagnosed : 9 3:18 PM (R43.8) Not Available [facility] 4 02:38:55 Disorder of taste 805628304 Active 2018 Other disturban amber of smell and taste; Note: Date Diagnosed : 9 3:18 PM (R43.8) Not Available [facility] 4 02:38:55 Chronic rhinitis 58415386 Active 2019 Chronic rhinitis; Note: Date Diagnosed : 01/14/2020 12:11 PM (J31.0) Not Available [facility] 4 02:38:50 Generaliz ed anxiety disorder 40517492 Active 2020 Generaliz ed anxiety disorder; Note: Date Diagnosed : 07/21/2020 12:33 PM (F41.1) MOIZ HIGH MD [address] [facility],[place] [address], [place]a [place], [place], [address] , [place] - [facility] 5 13:57:24 Benign prostatic hyperplas ia 987782358 Active 2021 Heidi ortiz [place] - [facility] 5 13:36:20 Hyperlipi demia 73791458 Active 2021 Heidi ortiz [place] - [facility] 5 13:36:20 Prostate specific antigen above reference range 361639046 Active 2022 Heidi ortiz [place] - [facility] 5 13:36:20 Chronic sinusitis 25632383 Active 2023 MOIZ HIGH MD [address] [facility],[place] [address], [place], [place], [address] , [place] - [facility] 5 13:56:22 Chronic rhinosinu sitis with multiple nasal polyps Active 2024 AURORA GRANDE MD [address], [place], [address] , [facility] - [facility] 5 09:31:22 Hearing change 588809441 Active 2024 AURORA GRANDE MD [address] [facility] [address], [place] [place], [address] , [facility] - [facility] 5 10:15:12 Chronic maxillary sinusitis 87237534 Active 2024 Mirian ortiz [place] - [facility] 5 11:39:23 Sensorine ural hearing loss of bilateral ears 392352907 Active 2024 MOIZ HIGH MD [address] [facility] [place],[address] [facility] [place], [address] , [facility] - [facility] 5 13:57:17 Uncontrol led type 2 diabetes mellitus 642459868 Active 2024 MOIZ HIGH MD [address] [facility] [place],[address] [facility], [place], [address] , [facility] - [facility] 5 13:58:09 Problem Notes None recorded. Procedures Surgical History Date Name Laterality Status Provider Name and Address Organization Details Recorded Time 03/17/20 25 JMSNasal/Sinus Endoscopy-PRIOR surgical cavities completed MOIZ BENAVIDES MD [address] [facility] [place] [address], [place], [address], [facility] - [facility] 03/17/2025 14:00:21 12/17/19 25 Comp Audio with Tymps - 10124 & 18074 completed TITO HAWLEY [address] [facility] [address], [place], [address], [facility] - [facility] 12/16/2024 14:18:46 12/17/19 25 JMSNasal/Sinus Endoscopy-PRIOR surgical cavities completed MOIZ BENAVIDES MD [address] [facility] [place],[address] [facility], [place], [address], [place] - [facility] 12/16/2024 13:57:14 08/04/19 25 otomicroscopy completed AURORA GRANDE MD [address] [facility] [place],[address], [address], [facility] - [facility] 08/04/2024 09:30:14 04/20/20 24 JMSNasal/Sinus Endoscopy-PRIOR surgical cavities completed MOIZ BENAVIDES MD [address] [facility] [place],[address], [address], [facility] - [facility] 04/20/2024 09:04:09 functional endoscopic sinus surgery completed MOIZ BENAVIDES MD [address] [facility] [address], [place], [address], [facility] - [facility] 04/17/2024 22:22:02 open stone operation on kidney or renal pelvis completed MOIZ BENAVIDES MD [address] [facility] [place],[address], [address], [place] - [facility] 04/17/2024 22:22:17 tooth extraction completed Heidi Castro [place] - [facility] 12/16/2024 13:39:26 endoscopic carpal tunnel release completed Heidi Castro [place] - [facility] 12/16/2024 13:39:38 operative procedure on hand completed Heidi Castro [place] - [facility] 12/16/2024 13:39:48 Imaging Results None recorded. Procedure Notes None recorded. Medical Equipment None Reported. Allergies Allergen ID Allergen Name Allergen Category Reaction Reaction Severity Criticality Documentation Date Start Date Code Code System Note Provider Name and Address Organization Details Recorded Time 453871 meperidin e hydrochlo ride medicatio n other Not available Not available 11/12/2023 04768 5 RxNorm React ion: unkno wn, unspe cifie d;; Not Available [facility] 4 01:07:08 978667 Demerol medicatio n Not available Not available Not available 04/20/2024 02342 1 RxNorm Mirian ortiz [place] - [facility] 4 08:53:15 769152 meperidin e hydrochlo ride medicatio n hallucina tions Not available Not available 12/16/20242005 04659 5 RxNorm Other react ions and sever ities : 'Naus ea And Vomit ing'. Heidi ortiz [place] - [facility] 13:36:12 Medications Name Sig Start Date Stop Date Status Note LastModified by Organization Details LastModified Time bicalutam sharda 50 mg tablet TAKE 1 TABLET BY MOUTH EVERY DAY NOW UNTIL THE END OF RADIATIO N 04/20 completed Not Available Not Available Not Available prednison e 10 mg tablet 4 tablet by mouth 04/26 completed Medicati on ID: [id number] D uration Value: 5 Brand Name: predniso ne Send Method: E-Prescr ibed Sub s Allowed: subs OK Medic ationGen ericName : predniso ne Not Available Not Available Not Available doxycycli ne hyclate 100 mg capsule PLEASE SEE ATTACHED FOR DETAILED DIRECTIO NS 03/17 completed Not Available Not Available Not Available atorvasta [...] DAYS,1 TAB DAILY X3 DAYS WITH FOOD 12/16 completed Not Available Not Available Not Available prednison e 5 mg tablet TAKE 1 TABLET BY MOUTH TWICE A DAY 04/20 completed Not Available Not Available Not Available clindamyc in HCl 150 mg capsule TAKE 1 CAPSULE BY MOUTH EVERY 6 HOURS UNTIL FINISHED 12/16 completed Not Available Not Available Not Available amlodipin e 5 mg tablet TAKE 1 TABLET BY MOUTH EVERY DAY active Not Available Not Available No t Available prochlorp erazine maleate 10 mg tablet TAKE 1 TABLET BY MOUTH EVERY 8 HOURS NEEDED FOR NAUSEA AND VOMITING FOR 30 DAYS 04/20 completed Not Available Not Available Not Available tamsulosi n 0.4 mg capsule TAKE 1 CAPSULE BY MOUTH EVERY DAY 12/16 completed Not Available Not Available Not Available doxycycli ne monohydra te 100 mg capsule 1 capsule by mouth 04/20 completed Medicati on ID: [id number] D uration Value: 10 Prescri bed By Name: MoizShreya Bravo nd Name: doxycycl ine monohydr ate Send [...] e 50 mcg/actua tion nasal spray,nolberto pension SPRAY 1 SPRAY INTO EACH NOSTRIL TWICE A DAY active Not Available Not Available No t Available sertralin e 50 mg tablet 04/20 completed Medicati on ID: [id number] B rand Name: sertrali ne Send Method: E-Prescr ibed Sub s Allowed: subs OK Medic ationGen ericName : sertrali ne Not Available Not Available Not Available doxycycli ne hyclate 100 mg tablet Take 1 tablet twice a day by oral route for 20 days. 12/16 completed Not Available Not Available Not Available finasteri de 5 mg tablet TAKE 1 TABLET BY MOUTH EVERY DAY active Not Available Not Available No t Available amoxicill in 875 mg-potass ium clavulana te 125 mg tablet TAKE 1 TABLET BY MOUTH EVERY 12 HOURS FOR 7 DAYS 04/20 completed Not Available Not Available Not Available oxycodone 5 mg tablet 01/16 completed Medicati on ID: [id number] D uration Value: 2 Brand Name: oxycodon [...] Not Available Not Available No t Available diclofena c 1 % topical gel 12/16 completed Not Available Not Available Not Available cholecalc iferol (vitamin D3) 50 mcg (2,000 unit) tablet 2022 active Not Available Not Available Not Avai lable abiratero ne 250 mg tablet 04/20 completed Not Available Not Available Not Available OneTouch Verio test strips USE TO CHECK BLOOD SUGARS DAILY active Not Available Not Available No t Available potassium chloride ER 20 mEq tablet,ex tended release TAKE 1 TABLET BY MOUTH EVERY DAY FOR 5 DAYS 04/20 completed Not Available Not Available Not Available OneTouch Verio Flex Meter USED TO CHECK BLOOD SUGARS DAILY active Not Available Not Available No t Available OneTouch Delica Plus Lancet 30 gauge CHECK BLOOD SUGAR DAILY active Not Available Not Available No t Available Ozempic 0.25 mg or 0.5 mg (2 mg/3 mL) subcutane ous pen injector INJECT 0.25MG UNDER THE SKIN ONCE WEEKLY FOR 4 WEEKS THEN 0.5MG ONCE WEEKLY FOR AT LEAST 4 WEEKS active Not Available Not Available No t Available Vitals Date Recorded Body height Body mass index (BMI) Body weight Provider Name and Address Organization Details Last Updated DateTime 08/04/2024 182.88 cm 39.6 kg/m2 684657.97 g Benton Ke[facility] 08/04/2024 09:03:20 Date Recorded Body height Provider Name an d Address Organization Details Last Updated DateTime 12/16/2024 182.88 cm [facility]idi Castro [facility] [facility] 12/16/2024 13:36:07 Date Recorded Body height Body mass index (BMI) Body weight Provider Name and Address Organization Details Last Updated DateTime 03/17/2025 182.88 cm 43.9 kg/m2 348213.93 g MOIZ BENAVIDES MD [address] [place] [address], [id number], [place] - [facility] 03/17/2025 13:57:41 Date Recorded Body height Body mass index (BMI) Body weight Provider Name and Address Organization Details Last Updated DateTime 04/20/2024 182.88 cm 39.7 kg/m2 876465.77 g Mirian Ruiz [facility] 04/20/2024 08:53:02 Social History None recorded. Functional Status None recorded. Mental Status None recorded. Family History Nothing Reported. Medical History Condition Response Cancer Y Depression Y Nasal or Sinus Problems Y Liver Disease Y Hypertension Y Immunizations Vaccine Type Date Status Note Provider Nam e and Address Organization Details Recorded Time pneumococcal polysaccharide PPV23 8 completed Heidi ortiz [facility] 12/16/2024 13:36:26 Tdap 9 completed Heidi ortiz [facility] 12/16/2024 13:36:26 Td (adult), 2 Lf tetanus toxoid, preservative free, adsorbed 9 completed Heidi ortiz [facility] 12/16/2024 13:36:26 Past Encounters Encounter ID Performer Location Encounter Start Date Encounter Closed Date Diagnosis/Indication Diagnosis SNOMED-CT Code Diagnosis ICD10 Code Diagnosis IMO Codes Diagnosis Note [id number] MOIZ HIGH MD [facility] [address] [address] 04/20/2024 08:42:18 04/20/2024 09:12:40 Polyp of nasal cavity 021071600 J33.0 Chronic sinusitis 574610 00 J32.9 [id number] AURORA GRANDE MD [facility] [address] [address] 08/04/2024 08:55:09 08/04/2024 09:34:30 Chronic rhinosinusitis with multiple nasal polyps 7436822416 J32.9 Hearing change 462747066 R44.9 [id number] MOIZ HIGH MD [facility] [address] [address] 12/16/2024 13:23:03 12/16/2024 16:47:25 Sensorineural hearing loss of bilateral ears 669638838 H90.3 [id number] Audiologic al evaluation results:[facility] ear:Normal sloping at 3kHz to mild sensorineu ral hearing loss with excellent word recognitio n.Left ear:Normal auditory thresholds with a mild sensorineu ral notch at 4kHz with excellent word recognitio n.Tympanom etry:Right Ear:Type AdLeft Ear:Type Ad Polyp of nasal cavity 73 3114108 J33.0 32530 Generalize d anxiety disorder 07040168 F41.1 845555 [id number] MOIZ HIGH MD [facility] [address] [address] 03/17/2025 13:45:31 03/17/2025 14:03:40 Chronic sinusitis 34162142 J32.8 49294 Snoring 52753226 R06.83 [id number] Morbid obesity 911799728 E66.01 18361 Uncontroll ed type 2 diabetes mellitus 499413425 E11.65 81268938 Health Concerns Section Related Observation LastModified by Organization Detai ls LastModified Time None Recorded Concern Status LastModified by Organization Details LastModified Time None Recorded Advance Directives Directive None Recorded Payers Insurance Date Sequence Insurance Name Policy Number Policy Appiah Covered Member ID Appiah Member ID Guarantor Name 03/14/2025 1 [facility] Brett Hagen [id number] Brett Juarezicki Notes Date Note Type Note Provider Name and Address Organization Details Recorded Time 04/20/2024 text/html Hx of sinus congestion for years. recent XRT for prostate CA. Needs extraction for his upper teeth. Chronic congestion right > left with colored d/cLast Abx more than 6 months agoFESS 2019No irrigations or INSStill getting Lupron injections every 6 monthsIssue with Depression MOIZ BENAVIDES MD [address] [place] [address], [phone], [facility] - [facility] 04/20/2024 09:06:45 08/04/2024 text/html ROS as noted in the HPI 64yo gentleman who presents today for evaluation of chronic rhinosinusitis with nasal polyps s/p FESS [place] [address] Benavides. He was last seen [...] otologic infections, otologic surgeries. AURORA GRANDE MD [address] [facility],[place] [address], [place], [address], [facility] - [facility] 08/04/2024 10:15:39 12/16/2024 text/html ROS as noted in the HPI Struggling with anxiety. Sense of smell better after prednisone and doxycycline in August. Current not doing budesonide or FP. No issues with urination or appetite. followed for his prostate CA. MOIZ BENAVIDES MD [address] [facility],[place] [address], [place], [address], [facility] 12/16/2024 14:56:20 03/17/2025 text/html rBett Hagen is a 65-year-old male who presents for evaluation of nasal polyps and associated symptoms. He reports a history of weight gain following cancer treatment, during which he initially lost 50 pounds but has since regained the weight, now weighing approximately 324 pounds at a height of six feet. He has been diagnosed with type 2 diabetes, with a recent hemoglobin A1c of 7.4, and is considering medication management due to difficulty with lifestyle modifications. He experiences frequent nighttime urination, which disrupts his sleep, and occasional anxiety episodes, particularly after waking at night. He denies issues with nasal breathing and reports improvement in mental health but acknowledges ongoing challenges with weight management and anxiety. He has not been using prescribed nasal rinses or sprays consistently, which raises concerns about the recurrence of nasal polyps. He lives alone and has a history of disrupted sleep patterns, potentially related to undiagnosed sleep apnea. He expresses apprehension about undergoing a sleep study but is willing to consider it. MOIZ BENAVIDES MD [address] [facility] [place],[facility] [address], [place], [address], [facility] - [facility] 03/17/2025 14:01:41
--- OUTSIDE RECORDS SUMMARY | 2025-05-20 15:25 | XMS_ITS | Continuity of Care Document ---
Author Organization [place] - [facility], [facility] Address [address] [place] [address] Care Team Providers Care Decorating Supervisor Name Role Phone ROLA BURGESS Referring Provider [phone] Assessment Encounter Date Assessment Date Assessment LastModified by Organization Details LastModified Time 03/17/2025 03/17/2025 Type 2 diabetes with elevated [...] diabetes and sleep apnea. Referral to a director pharmacy services or weight management program may be beneficial. [email or web address] Not available 03/17/2025 14:00:03 Plan of Treatment Reminders Order Date Submit Date Provider Last Modified By Organization Details Last Modified Time Details Appointments Hearing Test 12/17/ 2025 01:30P M Hearing Test Not available Not available Not available Establish ed 15 2024 02:00P M GE CEDILLO PA-C Not available Not available Not available Lab None recorded. Referral None recorded. Procedures None recorded. Surgeries None recorded. Imaging polysomno gram 2024 [id number] [email or web address] [facility] Scheduling Dept, [address] [place], [address], 03/25/2025 09:26:07 Medication Orders fluticaso ne propionat e 50 mcg/actua tion nasal spray,nolberto pension 2024 [id number] [id number], [address] [place], [address], 03/17/2025 13:59:28 Patient TargetsNo targets recorded. Patient Instructions Encounter Date Encounter Id Patient Instructions Last Modified By Organization Details Last Modified Time 03/17/2025 [id number] Resume daily use of Fluticasone nasal spray. Consider saline rinses during showers to improve nasal hygiene. Follow up with primary care provider for diabetes management and anxiety symptoms. Schedule a sleep study to evaluate for sleep apnea, considering both in-hospital and at-home options. Explore weight management strategies, including referral to a director pharmacy services or weight management program. [email or web address] Not available 03/17/2025 14:00:03 Please note: Parts of this encounter note have been generated by AI based on audio conversation. Patient consent was required prior to utilizing this technology. Content review was required prior to finalizing the note. [email or web address] Not available 03/17/2025 14:00:03 Reason for Referral None Reported. Problems Name Problem SNOMED Code Status Onset Date Resolution Date Notes Provider Name and Address Organization Details Recorded Time Chronic liver disease 759472657 Active 2005 Heidi ortiz [place] - [facility] 5 13:36:20 Hypertens kosta disorder 31059057 Active 2005 Heidi ortiz [place] - [facility] 5 13:36:20 Diverticu litis of colon 134664317 Active 2012 Heidi ortiz [place] - [facility] 5 13:36:20 Kidney stone 55638555 Active 2012 Heidi ortiz, [place] - [facility] 5 13:36:20 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 Heidi ortiz, [place] - [facility] 5 13:36:20 Morbid obesity 413611158 Active 2013 RODGER HIGH MD [address] [place] [address], [place], [address] , [facility] - [facility] 5 13:57:12 Type 2 diabetes mellitus 41179614 Active 2015 Heidi ortiz [place] - [facility] 5 13:36:20 Dysphonia 37779148 Active 2017 Hoarsenes s; Note: Date Diagnosed : 07/17/2017 10:55 AM (R49.0) Not Available [facility] 4 02:38:50 Nasal congestio n 93620454 Active 2017 Nasal congestio n; Note: Date Diagnosed : 07/17/2017 10:55 AM (R09.81) Not Available [facility] 4 02:39:02 Chronic pansinusi tis 91716502 Active 2017 Chronic pansinusi tis; Note: Changed from J32.9 to J32.4 ( 8 11:52 AM) , Date Diagnosed : 07/17/2017 10:54 AM (J32.9) Not Available [facility] 4 02:38:45 Snoring 54562227 Active 2017 Snoring; Note: Date Diagnosed : 07/17/2017 10:55 AM (R06.83) Jerilyn ortiz [place] - [facility] 5 09:26:30 Deviated nasal septum 576254197 Active 2017 Deviated nasal septum; Note: Date Diagnosed : 07/17/2017 10:55 AM (J34.2) Not Available [facility] 4 02:38:56 Hypertrop hy of nasal turbinate s 80674279 Active 2017 Hypertrop hy of nasal turbinate s; Note: Date Diagnosed : 07/17/2017 10:54 AM (J34.3) Not Available [facility] 4 02:39:01 Acute conjuncti vitis of right eye 95639475280 9102 Active 2017 Unspecifi ed acute conjuncti vitis, right eye; Note: Date Diagnosed : 08/26/2017 12:26 PM (H10.31) Not Available [facility] 4 02:38:53 Essential hypertens ion 06743908 Active 2017 Essential (primary) hypertens ion; Note: Date Diagnosed : 08/26/2017 9:25 AM (I10) Not Available [facility] 4 02:38:54 Mixed anxiety and depressiv e disorder 527557282 Active 2018 Heidi ortiz [place] - [facility] 5 13:36:20 Polyp of nasal cavity 872896486 Active 2018 Polyp of nasal cavity; Note: Date Diagnosed : 01/16/2019 3:26 PM (J33.0) RODGER HIGH MD [address] [place] [address], [facility] [place], [address] [facility] - [facility] 5 13:57:18 Loss of sense of smell 67723176 Active 2018 Anosmia; Note: Date Diagnosed : 01/16/2019 3:26 PM (R43.0) Not Available [facility] 4 02:38:52 Follow-up visit Active 2018 Medical surveilla nce following completed treatment ; Note: Date Diagnosed : 9 12:02 PM (Z09) Not Available [facility] 4 02:39:00 Acute conjuncti vitis of left eye 22465236294 9105 Active 2018 Unspecifi ed acute conjuncti vitis, left eye; Note: Date Diagnosed : 05/08/2019 9:19 AM (H10.32) Not Available [facility] 4 02:38:49 Disorder of smell 670590568 Active 2018 Other disturban amber of smell and taste; Note: Date Diagnosed : 9 3:18 PM (R43.8) Not Available [facility] 4 02:38:55 Disorder of taste 806025384 Active 2018 Other disturban amber of smell and taste; Note: Date Diagnosed : 9 3:18 PM (R43.8) Not Available [facility] 4 02:38:55 Chronic rhinitis 94666764 Active 2019 Chronic rhinitis; Note: Date Diagnosed : 01/14/2020 12:11 PM (J31.0) Not Available [facility] 4 02:38:50 Generaliz ed anxiety disorder 64683241 Active 2020 Generaliz ed anxiety disorder; Note: Date Diagnosed : 07/21/2020 12:33 PM (F41.1) ROGDER HIGH MD [address] [facility],[place] [address], [place], [address] , [place] - [facility] 5 13:57:24 Benign prostatic hyperplas ia 516587613 Active 2021 Heidi ortiz [place] - [facility] 5 13:36:20 Hyperlipi demia 74574434 Active 2021 Heidi ortiz [place] - [facility] 5 13:36:20 Prostate specific antigen above reference range 635333231 Active 2022 Heidi ortiz [place] - [facility] 5 13:36:20 Chronic sinusitis 24816028 Active 2023 RODGER HIGH MD [address] [facility] [place],[place] [address], [place], [address] , [place] - [facility] 5 13:56:22 Chronic rhinosinu sitis with multiple nasal polyps Active 2024 AURORA GRANDE MD [address] [facility] [place],[address], [place], [address] , [place] - [facility] 5 09:31:22 Hearing change 154714255 Active 2024 AURORA GRANDE MD [address] [facility],[place] [address], [place], [address] , [facility] - [facility] 5 10:15:12 Chronic maxillary sinusitis 27617356 Active 2024 Mirian ortizWINDER, [place] - [facility] 5 11:39:23 Sensorine ural hearing loss of bilateral ears 370923535 Active 2024 RODGER HIGH MD [address] [facility],[place] [address], [place], [address] , [facility] - [facility] 5 13:57:17 Uncontrol led type 2 diabetes mellitus 336590613 Active 2024 RODGER HIGH MD [address] [facility],[place] [address], [place], [address] , [facility] - [facility] 13:58:09 Problem Notes None recorded. Procedures Surgical History Date Name Laterality Status Provider Name and Address Organization Details Recorded Time 03/17/20 25 JMSNasal/Sinus Endoscopy-PRIOR surgical cavities completed RODGER BENAVIDES MD [address] [facility],[address], [address], [facility] - [facility] 03/17/2025 14:00:21 12/17/19 25 Comp Audio with Tymps - 84782 & 02506 completed TITO HAWLEY [address] [facility],[address], [address], [facility] - [facility] 12/16/2024 14:18:46 12/17/19 25 JMSNasal/Sinus Endoscopy-PRIOR surgical cavities completed RODGER BENAVIDES MD [address] [facility],[address], [address], [facility] - [facility] 12/16/2024 13:57:14 08/04/19 25 otomicroscopy completed AURORA GRANDE MD [address] [facility],[address], [address], [place] - [facility] 08/04/2024 09:30:14 04/20/20 24 JMSNasal/Sinus Endoscopy-PRIOR surgical cavities completed RODGER BENAVIDES MD [address] [facility],[address], [address], [place] - [facility] 04/20/2024 09:04:09 functional endoscopic sinus surgery completed RODGER BENAVIDES MD [address] [facility],[address], [address], [place] - [facility] 04/17/2024 22:22:02 open stone operation on kidney or renal pelvis completed RODGER BENAVIDES MD [address] [facility],[place] [address], [place], [address], [place] - [facility] 04/17/2024 22:22:17 tooth extraction completed Heidi Castro [place] [facility] 12/16/2024 13:39:26 endoscopic carpal tunnel release completed Heidi Castro [place] [facility] 12/16/2024 13:39:38 operative procedure on hand completed Heidi Castro [place] - [facility] 12/16/2024 13:39:48 Imaging Results None recorded. Procedure Notes None recorded. Medical Equipment None Reported. Allergies Allergen ID Allergen Name Allergen Category Reaction Reaction Severity Criticality Documentation Date Start Date Code Code System Note Provider Name and Address Organization Details Recorded Time 676693 meperidin e hydrochlo ride medicatio n other Not available Not available 11/12/2023 61508 5 RxNorm React ion: unkno wn, unspe cifie d;; Not Available [facility] 01:07:08 410814 Demerol medicatio n Not available Not available Not available 04/20/2024 60102 1 RxNorm Mirian ortiz [place] [facility] 4 08:53:15 457930 meperidin e hydrochlo ride medicatio n hallucina tions Not available Not available 12/16/20242005 76437 5 RxNorm Other react ions and sever ities : 'Naus ea And Vomit ing'. Heidi ortiz [place] [facility] 5 13:36:12 Medications Name Sig Start Date Stop Date Status Note LastModified by Organization Details LastModified Time bicalutam sharda 50 mg tablet TAKE 1 TABLET BY MOUTH EVERY DAY NOW UNTIL THE END OF RADIATIO N 04/20 completed Not Available Not Available Not Available prednison e 10 mg tablet 4 tablet by mouth 04/26 completed Medicati on ID: [id number] D uration Value: 5 Brand Name: predniso [...] by mouth 04/20 completed Medicati on ID: [id number] D uration Value: 10 Prescri bed By [...] mg tablet 04/20 completed Medicati on ID: [id number] B rand Name: sertrali ne Send Method: E-Prescr ibed Sub s Allowed: subs OK Medic [facility] ericName : sertrali ne Not Available Not [...] mg tablet 01/16 completed Medicati on ID: [id number] D uration Value: 2 Brand Name: oxycodon [...] Updated DateTime 03/17/2025 182.88 cm 43.9 kg/m2 608797.93 g RODGER BENAVIDES MD [address] [place] [address], [address], [place] - [facility] 03/17/2025 13:57:41 Social History None recorded. Functional Status None recorded. Mental Status None recorded. Family History Nothing Reported. Medical History Condition Response Nasal or Sinus Problems Y Liver Disease Y Cancer Y Hypertension Y Depression Y Immunizations Vaccine Type Date Status Note Provider Nam e and Address Organization Details Recorded Time pneumococcal polysaccharide PPV23 8 completed Heidi ortiz [place] - [facility] 12/16/2024 13:36:26 Tdap 9 pablo ortiz [place] - [facility] 12/16/2024 13:36:26 Td (adult), 2 Lf tetanus toxoid, preservative free, adsorbed 9 apblo ortiz [place] - [facility] 12/16/2024 13:36:26 Past Encounters Encounter ID Performer Location Encounter Start Date Encounter Closed Date Diagnosis/Indication Diagnosis SNOMED-CT Code Diagnosis ICD10 Code Diagnosis IMO Codes Diagnosis Note [id number] RODGER HIGH MD [facility] [address] [place] [address] 03/17/2025 13:45:31 03/17/2025 14:03:40 Chronic sinusitis 56247480 J32.8 20870 Snoring 22498454 R06.83 9244563020 Morbid obesity 706835580 E66.01 87316 Uncontroll ed type 2 diabetes mellitus 685699077 E11.65 98655596 Health Concerns Section Related Observation LastModified by Organization Detai ls LastModified Time None Recorded Concern Status LastModified by Organization Details LastModified Time None Recorded Payers Encounter Date Sequence Insurance Name Policy Number Policy Appiah Covered Member ID Appiah Member ID Guarantor Name 03/17/2025 1 [facility] Brett Hagen [id number] Brett Hagen Notes Date Note Type Note Provider Name and Address Organization Details Recorded Time 03/17/2025 text/html Brett Hagen is a 65-year-old male who presents [...] study but is willing to consider it. RODGER BENAVIDES MD [address] [place] [address], [place], [address], [facility] - [facility] 03/17/2025 14:01:41
== END 2025-05-20 10:29 | disposition home or self-care (01) ==
LOC: HO.LAB 10:28
PROVIDERS: PCP Internal Medicine; Visit Provider Urology
DX: C61 Malignant neoplasm of prostate (principal); Z12.5 Encounter for screening for malignant neoplasm of prostate
CPT/HCPCS: 36415; 84153; 84403

== ENCOUNTER 2025-06-15 15:38 | Outpatient (AMB) | payer OTHER, SELFPAY ==
--- NOTE | 2025-06-15 15:44 | MHC.OFFVIS ---
Vital Signs 06/15/25 15:49 Weight 301 lb Intake Visit Reasons: 4m follow up/Labs SET (NO UA ) Intake Note: Reason for Visit: LABS Urology Medication: None Blood Thinners:None Imaging: None Labs: PSA- <0.10 Total Testosterone: 89 Last PVR:None Client Services Representative Required: No Accompanied by: Self / Same As Patient Allergies meperidine (Demerol) Allergy (Unknown, Verified 06/15/25 15:45) Unknown HPI Comments Details: Mr Hagen is a very pleasant male. He is a patient of Dr Encinas. He is seen for the following urologic conditions. - lower urinary tract symptoms - nephrolithiasis - prostate cancer Tells me he lost 30 lb Slowly recovering testosterone with weight loss Encouraged him to remain on GLP-1s Is also using CPAP Well-maintained urination Lab work stable - six-month follow-up 10/23 <0.1 T8, 02/22 <0.1, 05/25 <0.1 T90 07/25 <0.1 Feels his GnRH slowly wearing off as his emotions becoming more under control Can stop finasteride Check lab work in three-month 03/24 P <0.1 T 7 Continue good response Here for last GnRH 12/22 P <0.1 T 3 Continue good response Minimal symptoms Has come off abiraterone and is feeling more energy given his job Plan three-month follow-up for lab work and GnRH 09/21 P <0.1, T<1 Current therapy GnRH with abiraterone and external beam radiation HbA1c has risen 1.0 points, potassium issues Oncology have given potassium Second GnRH injection provided Continue finasteride Given diabetic complications from GnRH + antiandrogen will consider ceasing antiandrogen in 3 months based on HbA1c response Working at [employer] - greatly improved his outlook on life - had an issue with a female co-worker Prostate Cancer - High risk, clinically localized - external beam radiotherapy with radiation oncology Dr. Michael Logan, Medical Oncology [facility] Dr. Love - 08/24 03/23 GnRH, 09/21 GnRH, 03/24 GnRH Diagnosed 01/20 Dr Escamilla No family history of prostate cancer TRUS - 01/20 55gm PSA 4.7 F 11% on finasteride Jayna score: 5+4=9 (left apex lateral, left apex medial), 4+5=9 (left mid lateral, left mid medial), 3+5=8 (Left base medial), 3+4=7 (left base lateral) Tumor quantitation: Number cores positive: 6 Total number of cores: 12 % of tissue involved: 40% (all on the left) Periprostatic fat inv.: Not identified Seminal vesicle inv.: Not identified Perineural inv.: Present LVI: Not identified Staging 02/20 Bone scan negative 02/20 MRI 2 cm lesion, abutting capsule, no evidence of seminal vesicle involvement, 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 PSA 06/18 4.8, 08/20 3.8, 08/21 4.4, 03/21 7.2, 05/21 4.5 finasteride, 12/21 4.7 11% Cystoscopy - 05/21 open bladder neck with high bladder lip Nephrolithiasis/Urolithiasis: They are here for further evaluation of nephrolithiasis Urolithiasis was diagnosed 2010. The patient previously had kidney stones whose composition w unknown. Laboratory investigations include no recent labs. 24 Hour urine evaluation none on file. Prior treatment(s) include observation, with dietary advice to increase fluids, decrease salt and watch protein intake , ESWL 04/10 right side. Prior imaging includes November 2015 a KUB x-ray, showing no evidence of stones December 2016, a KUB x-ray, showing no evidence of stones 01/15 , a renal ultrasound, right 2cm cyst, left 4x3mm stone 08/19 , a renal ultrasound, stable cyst and stoned in left kidney 08/20 , a renal ultrasound, stable cysts and no stones - 03/21 renal ultrasound bilateral renal cyst right 5 cm, left 2 cm. No stone - 01/19 renal ultrasound stable cysts, question 4 mm right stone UA today shows 5.5-6.0, low pH suggestive of higher protein load, high specific gravity suggestive of relative dehydration. Current therapeutic plan will be to continue with imaging surveillance at appropriate interval [facility] Medical History Elevated PSA Benign prostatic hyperplasia with lower urinary tract symptoms Poor urinary stream History of urinary hesitancy Weak urinary stream Surgical History H/O hand surgery Hx of lithotripsy Family History Father No problems noted. Mother Cancer Arthritis of knee Review of Systems Const Denies chills and Denies fever(s) Card Reports no additional complaints and Denies syncope Resp Denies cough GI Denies abdominal pain and Denies heartburn Reports as per HPI and Denies change in libido Neuro Denies syncope Psych Denies change in libido Endo Denies change in libido Physical Exam Const General: cooperative, healthy appearing, comfortable and no acute distress Orientation/consciousness: patient oriented x3 HEENT Face and sinus: Yes normal facial exam Mouth: moist mucous membranes Neck Neck: Yes normal visual inspection, Yes full ROM and Yes trachea midline Chest Chest palpation & inspection: normal inspection of the chest Resp Effort & Inspection: normal respiratory effort, able to speak in complete sentences and no respiratory distress GI Inspection: Yes normal to inspection Back/Spine/Pelvis Cervical Spine: normal cervical lordosis Thoracic/Lumbar Spine: thoracic and lumbar spine normal to inspection Skin General skin exam: no rashes or lesions noted Neuro General: patient oriented x3, gait normal, tone normal and moves all extremities Extrem General: Yes normal to inspection and Yes capillary refill normal Assessment & Plan Assessment & Plan (1) Prostate cancer: Comment: High Grade Code(s): C61 - Malignant neoplasm of prostate Category: Medical (2) Nephrolithiasis: Code(s): N20.0 - Calculus of kidney Category: Medical Plan Continue to follow Q six-month Orders: Orders Prostate Specific Antigen 6 Months C61 - Malignant neoplasm of prostate Testosterone, Total 6 Months C61 - Malignant neoplasm of prostate Patient Instructions: This note is constructed using voice recognition software. While every effort has been made to ensure accuracy fur cutter errors may have been included. Imaging studies, laboratory and physical exam results were discussed and reviewed in detail. No major barriers to patient understanding were identified. An opportunity to ask questions regarding the treatment plan was provided. All questions were answered. The patient expressed understanding and agreement with the above treatment plan. The patient is aware they should contact our office by phone for worsening of their current condition or the appearance of new urologic symptoms. Compliance is encouraged with any medications and followup testing that is ordered. It is a privilege to participate in the urologic care of your patient. If you have any questions or concerns regarding treatment for the above conditions, or other urologic issues, please do not hesitate to contact me. The office telephone contact is [phone]. Sincerely, Dr Kevin Escamilla MD, [facility] - Urology Compassionate Specialist Care for the Genitourinary System Coding Level of Care Code Est Pt Level 3 (85252) Add On Problem Visit Only Diagnoses Prostate cancer C61 Nephrolithiasis N20.0
--- OUTSIDE RECORDS SUMMARY | 2025-06-15 19:48 | XMS_ITS | Encounter Summary ---
Author Organization [facility] Address [address] [place] [address] Care Team Providers Care Chemical Compounder Name Role Phone Hasmukh Encinas MD Primary Care Provider [phone] Encounter Details Date Type Department Care Team (Late Contact Info) Description 06/07/2025 Results Follow-Up Adult [address] [phone] Ritu Calabrese RADIO TOWER TECHNICIAN [address] [place], [place] Social History Tobacco Use Types Packs/Day Years [...] on file documented as of this encounter Plan of Treatment Upcoming Encounters Date Type Department Care Team (Late Contact Info) Description 10/06/2025 7:30 AM EDT Office Visit Adult Medicine [address] [phone] Arcelia Chavez PA [address] [place] [address] 12/09/2025 7:45 AM EDT Office Visit [address] [phone] Ivy Burnette PA [address] [place] [phone] documented as of this encounter Visit Diagnoses Not on filedocumented in this encounter Care Teams Chemical Compounder Relationship Specialty Start Date End Date Hasmukh Encinas MD [address] [place] [phone] PCP - General Internal Medicine 03/15/20 documented as of this encounter
--- OUTSIDE RECORDS SUMMARY | 2025-06-15 19:48 | XMS_ITS | Encounter Summary ---
Author Organization [facility] Address [address] [place] [address] Care Team Providers Care Methodologist Name Role Phone Hasmukh Encinas MD Primary Care Provider [phone] Reason for Referral * Consultation (Routine) - Closed Specialty Diagnoses / Procedures Referred By Contac t Referred To Contact Urology Diagnoses Malignant neoplasm of prostate (CMS/HCC V24, CMS/HCC V28) Hasmukh Encinas MD [address] [place] [address] Phone: tel: fax: Kevin Escamilla MD [address] [place] [address] [place] [address] Phone: tel: fax: Referral ID Status Reason Start Date Expiration Date V isits Requested Visits Authorized [id number] Closed Specialty Services Required 06/02/2025 06/01/2026 10 10 Reason for Visit * Reason Onset Date Comments Referral 06/02/2025 Urology Insuranc e Referral Encounter Details Date Type Department Care Team (Late st Contact Info) Description 06/02/2025 Telephone Adult Medicine [address] [phone] Hasmukh Encinas MD [address] [place] [address] Social History Tobacco Use Types Packs/Day Years [...] as of this encounter Progress Notes * Peggy Patel - 06/02/2025 11:30 AM EST What insurance does the patient have today? Payor: [facility]/@[facility]@ Referrals cannot be processed if the insurance is not accurate. If the insurance listed above is NO BILLING INFORMATION FOUND FOR THIS ENCOUNTER then the patients correct insurance must be obtainedand registered in [facility] or their referral can not be processed. Name of person calling to request this referral? F[place] -[facility] [place] [facility] Referred To Provider (Include first and last name): Kevin Escamilla NPI (if known): [id number] Order/Specialty requested urology Chief Complaint (Note: This is not a body part or a procedure): C61 prostate cancer Has the patient seen provider for this problem/Dx before? Referred To Provider Address: [address] [place] [address] Dr Mikhail BRIDGES Referred To Provider Referred To Provider Does patient have an appointment scheduled?: yes If yes, what is the date of the appointment?: 06/15/25 Is this a retro request? no Number of visits requested: 10 Is this appointment related to: MVA or worker compensation? no documented in this encounter Plan of Treatment Upcoming Encounters Date Type Department Care Team (Late st Contact Info) Description 10/06/2025 7:30 AM EDT Office Visit Adult Medicine [address] [phone] Arcelia Chavez PA [address] [place] [address] 12/09/2025 7:45 AM EDT Office Visit [address] [phone] Ivy Burnette PA [address] [place] [address] Scheduled Referrals Name Type Priority Associated Diagnoses Order Schedule Ambulatory referral to Urology Outpatient Referral Routine Malignant neoplasm of prostate ([facility] V24, [facility] V28) Expected: 06/02/2025, Expires: 06/02/2026 documented as of this encounter Visit Diagnoses Diagnosis Malignant neoplasm of prostate ([facility] V24, [facility] V28)- Primary Malignant neoplasm of prostate documented in this encounter Care Teams Methodologist Relationship Specialty Start Date End Date Hasmukh Encinas MD [address], [place] PCP - General Internal Medicine 03/15/20 documented as of this encounter
--- OUTSIDE RECORDS SUMMARY | 2025-06-15 19:48 | XMS_ITS | Encounter Summary ---
Author Organization [facility] Address [address] [place] [address] Care Team Providers Care Preload Supervisor Name Role Phone Hasmukh Encinas MD Primary Care Provider [phone] Encounter Details Date Type Department Care Team (Late Contact Info) Description 05/13/2025 Results Follow-Up [address] [phone] Ivy Burnette PA [address] [place] [address] Social History Tobacco Use Types Packs/Day Years [...] 7:30 AM EDT Office Visit Adult Medicine [address] [phone] Arcelia Chavez PA [address] [place] [address] 12/09/2025 7:45 AM EDT Office Visit [address] [phone] Ivy Burnette PA [address] [place] [address] documented as of this encounter Visit Diagnoses Not on filedocumented in this encounter Care Teams Preload Supervisor Relationship Specialty Start Date End Date Hasmukh Encinas MD [address] [place] [phone] PCP - General Internal Medicine 03/15/20 documented as of this encounter
--- OUTSIDE RECORDS SUMMARY | 2025-06-15 19:48 | XMS_ITS | Data Portability ---
Author Organization [place] - [facility], Allergy Address [address] [address] Care Team Providers Care Spring Clipper Name Role Phone ROLA BURGESS Referring Provider [phone] Assessment Encounter Date Assessment Date Assessment LastModified [...] polyps s/p FESS [place] [address] Benavieds. He was last seen in March 2024 [...] diabetes and sleep apnea. Referral to a senior product designer or weight management program may be beneficial. [...] available Lab ige, total, serum 2023 024 [place] [facility] (Centralized Electronic Ordering - All Locations), Patient Can Go To The Location Of Their Choice, [id number] 04/24/2024 17:08:05 CBC w/ auto diff 2023 024 [place] [facility] (Centralized Electronic Ordering - All Locations), Patient Can Go To The Location Of Their Choice, [id number] 04/24/2024 17:08:05 Referral None recorded. Procedures None recorded. Surgeries None recorded. Imaging polysomno gram 2024 025 [email or web address] [facility] Scheduling Dept, [address] [place] [address], [address], 03/25/2025 09:26:07 Medication Orders fluticaso ne propionat e 50 mcg/actua tion nasal spray,nolberto pension 2024 025 [facility]/Pharmacy #[id number], [address] [place], [address], 03/17/2025 13:59:28 Flonase Allergy Relief 50 mcg/actua tion nasal spray,nolberto pension 2024 025 [email or web address] [facility]/Pharmacy #[id number], [address] [place], [address], 12/16/2024 13:36:15 prednison e 20 mg tablet 2023 025 [id number] [address] [place], [address], 12/16/2024 13:37:45 budesonid e 0.5 mg/2 mL suspensio n for nebulizat ion 2023 024 [facility]/Pharmacy #[id number], [address] [place], [address], 04/20/2024 09:06:45 doxycycli ne hyclate 100 mg tablet 2023 025 [facility]/Pharmacy #[id number], [address] [place], [address], 12/16/2024 13:37:34 Patient TargetsNo targets recorded. Patient Instructions Encounter Date Encounter Id Patient Instructions Last Modified By Organization Details Last Modified Time 03/17/2025 [id number] Resume daily use of Fluticasone nasal spray. Consider saline rinses during showers to improve nasal hygiene. Follow up with primary care provider for diabetes management and anxiety symptoms. Schedule a sleep study to evaluate for sleep apnea, considering both in-hospital and at-home options. Explore weight management strategies, including referral to a senior product designer or weight management program. [email or web address] Not available [...] /uL 3.4-10 .8 normal Not Available [facility] ([facility]) [address] [place], [address], 04/24/2024 17:08:05 04/20/20 24 04/21/2024 CBC WITH DIFFE RENTI AL/PL ATELE T RBC 4.24 x10e6 /uL 4.14-5 .80 normal Not Available [facility] ([facility]) [address] [place], [address], 04/24/2024 17:08:05 04/20/20 24 04/21/2024 CBC WITH DIFFE RENTI AL/PL ATELE T hemoglobin 13.1 g/dL 13.0-1 7.7 normal Not Available [facility] ([facility]) [address] [place], [address], 04/24/2024 17:08:05 04/20/2004/21/2024 CBC WITH DIFFE RENTI AL/PL ATELE T hematocrit 40.2 % 37.5-5 1.0 normal Not Available [facility] ([facility]) [address] [place], [address], 04/24/2024 17:08:05 04/20/2004/21/2024 CBC WITH DIFFE RENTI AL/PL ATELE T MCV 95 fL 79-97 normal Not Available [facility] ([facility]) [address] [place], [address], 04/24/2024 17:08:05 04/20/2004/21/2024 CBC WITH DIFFE RENTI AL/PL ATELE T MCH 30.9 pg 26.6-3 3.0 normal Not Available [facility] ([facility]) [address] [place], [address], 04/24/2024 17:08:05 04/20/2004/21/2024 CBC WITH DIFFE RENTI AL/PL ATELE T MCHC 32.6 g/dL 31.5-3 5.7 normal Not Available [facility] ([facility]) [address] [place], [address], 04/24/2024 17:08:05 04/20/2004/21/2024 CBC WITH DIFFE RENTI AL/PL ATELE T RDW 13.3 % 11.6-1 5.4 Not Available [facility] ([facility]) [address] [place], [address], 04/24/2024 17:08:05 04/20/2004/21/2024 CBC WITH DIFFE RENTI AL/PL ATELE T platelets 223 x10e3 /uL 150-45 0 normal Not Available [facility] ([facility]) [address] [facility], [place], [address], 04/24/2024 17:08:05 04/20/20 24 04/21/2024 CBC WITH DIFFE RENTI AL/PL ATELE T neutrophils 76 % not estab. normal Not Available [facility] ([facility]) [address] [facility], [place], [address], 04/24/2024 17:08:05 04/20/2004/21/2024 CBC WITH DIFFE RENTI AL/PL ATELE T lymphs 10 % not estab. normal Not Available [facility] ([facility]) [address] [facility], [place], [address], 04/24/2024 17:08:05 04/20/20 24 04/21/2024 CBC WITH DIFFE RENTI AL/PL ATELE T monocytes 10 % not estab. normal Not Available [facility] ([facility]) [address] [place], [address], 04/24/2024 17:08:05 04/20/20 24 04/21/2024 CBC WITH DIFFE RENTI AL/PL ATELE T eos 3 % not estab. normal Not Available [facility] ([facility]) [address] [facility], [place], [address], 04/24/2024 17:08:05 04/20/20 24 04/21/2024 CBC WITH DIFFE RENTI AL/PL ATELE T basos 1 % not estab. normal Not Available [facility] ([facility]) [address] [place], [address], 04/24/2024 17:08:05 04/20/20 24 04/21/2024 CBC WITH DIFFE RENTI AL/PL ATELE T immature cells ACUTE CARE SURGEON Not Available [facility] ([facility]) [address] [facility], [place], [address], 04/24/2024 17:08:05 04/20/20 24 04/21/2024 CBC WITH DIFFE RENTI AL/PL ATELE T neutrophils (absolute) 4.0 x10e3 /uL 1.4-7. 0 normal Not Available [facility] ([facility]) [address] [facility], [place], [address], 04/24/2024 17:08:05 04/20/2004/21/2024 CBC WITH DIFFE RENTI AL/PL ATELE T lymphs (absolute) 0.5 x10e3 /uL 0.7-3. 1 below low normal Not Available [facility] ([facility]) [address] [facility], [place], [address], 04/24/2024 17:08:05 04/20/20 24 04/21/2024 CBC WITH DIFFE RENTI AL/PL ATELE T monocytes(ab solute) 0.5 x10e3 /uL 0.1-0. 9 normal Not Available [facility] ([facility]) [address] [facility], [place], [address], 04/24/2024 17:08:05 04/20/20 24 04/21/2024 CBC WITH DIFFE RENTI AL/PL ATELE T eos (absolute) 0.2 x10e3 /uL 0.0-0. 4 normal Not Available [facility] ([facility]) [address] [place], [address], 04/24/2024 17:08:05 04/20/20 24 04/21/2024 CBC WITH DIFFE RENTI AL/PL ATELE T baso (absolute) 0.0 x10e3 /uL 0.0-0. 2 normal Not Available [facility] ([facility]) [address] [facility], [place], [address], 04/24/2024 17:08:05 04/20/20 24 04/21/2024 CBC WITH DIFFE RENTI AL/PL ATELE T immature granulocytes 0 % not estab. Not Available [facility] ([facility]) [address] [facility], [place], [address], 04/24/2024 17:08:05 04/20/20 24 04/21/2024 CBC WITH DIFFE RENTI AL/PL ATELE T immature grans (abs) 0.0 x10e3 /uL 0.0-0. 1 Not Available [facility] ([facility]) [address] [facility], [place], [address], 04/24/2024 17:08:05 04/20/2004/21/2024 CBC WITH DIFFE RENTI AL/PL ATELE T NRBC ACUTE CARE SURGEON Not Available [facility] ([facility]) [address] [facility], [place], [address], 04/24/2024 17:08:05 04/20/2004/21/2024 CBC WITH DIFFE RENTI AL/PL ATELE T hematology comments: ACUTE CARE SURGEON Not Available [facility] ([facility]) [address] [facility], [place], [address], 04/24/2024 17:08:05 04/20/2004/24/2024 IMMUN OGLOB ULIN E, TOTAL immunoglobul in E, total 49 IU/mL 6-495 Not Available [facility] ([facility]) [address] [facility], [place], [address], 04/24/2024 17:08:05 12/17/19 25 audio gram No observ ation record ed. BARCODE Not Available 2024 15:37:30 Result Notes None recorded. 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 Heidi ortiz [place] - [facility] 5 13:36:20 Morbid obesity 796631092 Active 2013 MOIZ HIGH MD [address] [place] [address], [facility] [place], [address] , [place] - [facility] 5 13:57:12 Type 2 diabetes mellitus 82405912 Active 2015 Heidi ortiz [place] - [facility] 13:36:20 Dysphonia 94053647 Active 2017 Hoarsenes s; Note: Date Diagnosed : 07/17/2017 10:55 AM (R49.0) Not Available [facility] 4 02:38:50 Nasal congestio n 74768941 Active 2017 Nasal congestio n; Note: Date Diagnosed : 07/17/2017 10:55 AM (R09.81) Not Available [facility] 4 02:39:02 Chronic pansinusi tis 01882326 Active 2017 Chronic pansinusi tis; Note: Changed from J32.9 to J32.4 ( 8 11:52 AM) , Date Diagnosed : 07/17/2017 10:54 AM (J32.9) Not Available [facility] 4 02:38:45 Snoring 27866011 Active 2017 Snoring; Note: Date Diagnosed : 07/17/2017 10:55 AM (R06.83) Jerilyn ortiz [place] - [facility] 5 09:26:30 Deviated nasal septum 889833128 Active 2017 Deviated nasal septum; Note: Date Diagnosed : 07/17/2017 10:55 AM (J34.2) Not Available [facility] 4 02:38:56 Hypertrop hy of nasal turbinate s 62566647 Active 2017 Hypertrop hy of nasal turbinate s; Note: Date Diagnosed : 07/17/2017 10:54 AM (J34.3) Not Available [facility] 4 02:39:01 Acute conjuncti vitis of right eye 00683591303 9102 Active 2017 Unspecifi ed acute conjuncti vitis, right eye; Note: Date Diagnosed : 08/26/2017 12:26 PM (H10.31) Not Available [facility] 4 02:38:53 Essential hypertens ion 75195380 Active 2017 Essential (primary) hypertens ion; Note: Date Diagnosed : 08/26/2017 9:25 AM (I10) Not Available [facility] 4 02:38:54 Mixed anxiety and depressiv e disorder 676033470 Active 2018 Heidi ortiz [place] - [facility] 5 13:36:20 Polyp of nasal cavity 163801175 Active 2018 Polyp of nasal cavity; Note: Date Diagnosed : 01/16/2019 3:26 PM (J33.0) MOIZ HIGH MD [address] [place] [address], [facility] [place], [address] [facility] - [facility] 5 13:57:18 Loss of sense of smell 38209807 Active 2018 Anosmia; Note: Date Diagnosed : 01/16/2019 3:26 PM (R43.0) Not Available [facility] 4 02:38:52 Follow-up visit Active 2018 Medical surveilla nce following completed treatment ; Note: Date Diagnosed : 9 12:02 PM (Z09) Not Available [facility] 4 02:39:00 Acute conjuncti vitis of left eye 39793452374 9105 Active 2018 Unspecifi ed acute conjuncti vitis, left eye; Note: Date Diagnosed : 05/08/2019 9:19 AM (H10.32) Not Available [facility] 4 02:38:49 Disorder of smell 852181737 Active 2018 Other disturban amber of smell and taste; Note: Date Diagnosed : 9 3:18 PM (R43.8) Not Available [facility] 4 02:38:55 Disorder of taste 108891777 Active 2018 Other disturban amber of smell and taste; Note: Date Diagnosed : 9 3:18 PM (R43.8) Not Available [facility] 4 02:38:55 Chronic rhinitis 53885513 Active 2019 Chronic rhinitis; Note: Date Diagnosed : 01/14/2020 12:11 PM (J31.0) Not Available [facility] 4 02:38:50 Generaliz ed anxiety disorder 39569911 Active 2020 Generaliz ed anxiety disorder; Note: Date Diagnosed : 07/21/2020 12:33 PM (F41.1) MOIZ HIGH MD [address] [facility],[place] [address], [place], [place], [address] , [place] - [facility] 5 13:57:24 Benign prostatic hyperplas ia 302246067 Active 2021 Heidi ortiz [place] - [facility] 5 13:36:20 Hyperlipi demia 63944812 Active 2021 Heidi ortiz [place] - [facility] 5 13:36:20 Prostate specific antigen above reference range 975157810 Active 2022 Heidi ortiz [place] - [facility] 5 13:36:20 Chronic sinusitis 17053356 Active 2023 MOIZ HIGH MD [address] [facility],[place] [address], [place], [place], [address] , [place] - [facility] 5 13:56:22 Chronic rhinosinu sitis with multiple nasal polyps Active 2024 AURORA GRANDE MD [address], [place], [address] , [facility] - [facility] 5 09:31:22 Hearing change 244871866 Active 2024 AURORA GRANDE MD [address], [facility] [place], [address] , [facility] - [facility] 5 10:15:12 Chronic maxillary sinusitis 32784306 Active 2024 Mirian ortiz [place] - [facility] 5 11:39:23 Sensorine ural hearing loss of bilateral ears 383107124 Active 2024 MOIZ HIGH MD [address] [facility] [place] [facility], [facility] [place], [address] , [facility] - [facility] 5 13:57:17 Uncontrol led type 2 diabetes mellitus 205860621 Active 2024 MOIZ HIGH MD [address] [facility] [place] [facility], [place], [address] , [facility] - [facility] 5 13:58:09 Problem Notes None recorded. Procedures Surgical History Date Name Laterality Status Provider Name and Address Organization Details Recorded Time 03/17/20 25 JMSNasal/Sinus Endoscopy-PRIOR surgical cavities completed MOIZ BENAVIDES MD [address] [facility] [place] [address], [place], [address], [facility] - [facility] 03/17/2025 14:00:21 12/17/19 25 Comp Audio with Tymps - 33632 & 39058 completed TITO HAWLEY [address], [place], [address], [facility] - [facility] 12/16/2024 14:18:46 12/17/19 25 JMSNasal/Sinus Endoscopy-PRIOR surgical cavities completed MOIZ BENAVIDES MD [address] [facility] [place] [facility], [place], [address], [place] - [facility] 12/16/2024 13:57:14 08/04/19 25 otomicroscopy completed AURORA GRANDE MD [address] [facility] [place],[address], [address], [facility] - [facility] 08/04/2024 09:30:14 04/20/20 24 JMSNasal/Sinus Endoscopy-PRIOR surgical cavities completed MOIZ BENAVIDES MD [address] [facility] [place],[address], [address], [facility] - [facility] 04/20/2024 09:04:09 functional endoscopic sinus surgery completed MOIZ BENAVIDES MD [address] [facility] [place],[address], [place], [address], [facility] - [facility] 04/17/2024 22:22:02 open stone operation on kidney or renal pelvis completed MOIZ BENAVIDES MD [address] [facility] [place],[address], [address], [place] - [facility] 04/17/2024 22:22:17 tooth extraction completed Heidi Castro [place] - [facility] 12/16/2024 13:39:26 endoscopic carpal tunnel release completed Heidi Castro [place] - [facility] 12/16/2024 13:39:38 operative procedure on hand completed Heidi Castro [place] - [facility] 12/16/2024 13:39:48 Imaging Results None recorded. Procedure Notes None recorded. Medical Equipment None Reported. Allergies Allergen ID Allergen Name Allergen Category Reaction Reaction Severity Criticality Documentation Date Start Date Code Code System Note Provider Name and Address Organization Details Recorded Time 744241 meperidin e hydrochlo ride medicatio n other Not available Not available 11/12/2023 68544 5 RxNorm React ion: unkno wn, unspe cifie d;; Not Available [facility] 4 01:07:08 700292 Demerol medicatio n Not available Not available Not available 04/20/2024 28060 1 RxNorm Mirian ortiz [place] - [facility] 4 08:53:15 005467 meperidin e hydrochlo ride medicatio n hallucina tions Not available Not available 12/16/20242005 45729 5 RxNorm Other react ions and sever ities : 'Naus ea And Vomit ing'. Heidi ortiz [place] - [facility] 13:36:12 Medications Name Sig Start Date Stop Date Status Note LastModified by Organization Details LastModified Time bicalutam sharda 50 mg tablet TAKE 1 TABLET BY MOUTH EVERY DAY NOW UNTIL THE END OF RADIATIO N 04/20 completed Not Available Not Available Not Available prednison e 10 mg tablet 4 tablet by mouth 04/26 completed Medicati on ID: [id number] D uration Value: 5 Brand Name: predniso [...] by mouth 04/20 completed Medicati on ID: [id number] D uration Value: 10 Prescri bed By [...] mg tablet 04/20 completed Medicati on ID: [id number] B rand Name: sertrali ne Send Method: [...] mg tablet 01/16 completed Medicati on ID: [id number] D uration Value: 2 Brand Name: oxycodon [...] Available Not Available No t Available Ozempic 1 mg/dose (4 mg/3 mL) subcutane ous pen injector INJECT 1 MG UNDER THE SKIN EVERY 7 DAYS active Not Available Not Available No t [...] Updated DateTime 08/04/2024 182.88 cm 39.6 kg/m2 357050.97 g Benton Keita [place] - [facility] 08/04/2024 09:03:20 Date Recorded Body height Provider Name an d Address Organization Details Last Updated DateTime 12/16/2024 182.88 cm Heidi Castro [place] - [facility] 12/16/2024 13:36:07 Date Recorded Body height Body mass index (BMI) Body weight Provider Name and Address Organization Details Last Updated DateTime 03/17/2025 182.88 cm 43.9 kg/m2 004001.93 g MOIZ BENAVIDES MD [address] [place] [address], [address], [place] - [facility] 03/17/2025 13:57:41 Date Recorded Body height Body mass index (BMI) Body weight Provider Name and Address Organization Details Last Updated DateTime 04/20/2024 182.88 cm 39.7 kg/m2 392530.77 g Mirian Ruiz [facility] 04/20/2024 08:53:02 Social History None recorded. Functional Status None recorded. Mental Status None recorded. Family History Nothing Reported. Medical History Condition Response Nasal or Sinus Problems Y Liver Disease Y Cancer Y Hypertension Y Depression Y Immunizations Vaccine Type Date Status Note Provider Nam e and Address Organization Details Recorded Time pneumococcal polysaccharide PPV23 8 completed Heidi ortiz [place] [facility] 12/16/2024 13:36:26 Tdap 9 completed Heidi ortiz [facility] 12/16/2024 13:36:26 Td (adult), 2 Lf tetanus toxoid, preservative free, adsorbed 9 completed Heidi ortiz [facility] 12/16/2024 13:36:26 Past Encounters Encounter ID Performer Location Encounter Start Date Encounter Closed Date Diagnosis/Indication Diagnosis SNOMED-CT Code Diagnosis ICD10 Code Diagnosis IMO Codes Diagnosis Note [id number] MOIZ HIGH MD [facility] [address] [address] 04/20/2024 08:42:18 04/20/2024 09:12:40 Polyp of nasal cavity 439862021 J33.0 Chronic sinusitis 138654 00 J32.9 [id number] AURORA GRANDE MD [facility] [address] [address] 08/04/2024 08:55:09 08/04/2024 09:34:30 Chronic rhinosinusitis with multiple nasal polyps 2918469821 J32.9 Hearing change 511330858 R44.9 [id number] MOIZ HIGH MD [facility] [address] [address] 12/16/2024 13:23:03 12/16/2024 16:47:25 Sensorineural hearing loss of bilateral ears 272189432 H90.3 [id number] Audiologic al evaluation results:Ri ght ear:Normal sloping at 3kHz to mild sensorineu ral hearing loss with excellent word recognitio n.Left ear:Normal auditory thresholds with a mild sensorineu ral notch at 4kHz with excellent word recognitio n.Tympanom etry:Right Ear:Type AdLeft Ear:Type Ad Polyp of nasal cavity 73 8444495 J33.0 87140 Generalize d anxiety disorder 78588267 F41.1 [id number] MOIZ HIGH MD [facility] [address] [place] [address] 03/17/2025 13:45:31 03/17/2025 14:03:40 Chronic sinusitis 54607503 J32.8 45614 Snoring 94939222 R06.83 4548781148 Morbid obesity 550009965 E66.01 58142 Uncontroll ed type 2 diabetes mellitus 363134378 E11.65 71488209 Health Concerns Section Related Observation LastModified by Organization Detai ls LastModified Time None Recorded Concern Status LastModified by Organization Details LastModified Time None Recorded Advance Directives Directive None Recorded Payers Insurance Date Sequence Insurance Name Policy Number Policy Appiah Covered Member ID Appiah Member ID Guarantor Name 06/13/2025 1 [facility] Brett Hagen [id number] Brett Hagen Notes Date Note Type [...] 6 monthsIssue with Depression MOIZ BENAVIDES MD [address] [place] [address], [place], [address], [facility] - [facility] 04/20/2024 09:06:45 08/04/2024 text/html ROS as [...] otologic infections, otologic surgeries. AURORA GRANDE MD [address] [place] [address], [address], [facility] 08/04/2024 10:15:39 12/16/2024 text/html ROS as noted in the HPI Struggling with anxiety. Sense of smell better after prednisone and doxycycline in August. Current not doing budesonide or FP. No issues with urination or appetite. followed for his prostate CA. MOIZ BENAVIDES MD [address] [place] [address], [address], [facility] 12/16/2024 14:56:20 03/17/2025 text/html Brett Hagen is a 65-year-old [...] willing to consider it. MOIZ BENAVIDES MD [address] [place] [address], [place], [address], [facility] - [facility] 03/17/2025 14:01:41
--- OUTSIDE RECORDS SUMMARY | 2025-06-15 19:48 | XMS_ITS | Encounter Summary ---
Author Organization [facility] Address [address] [place] [address] Care Team Providers Care Property Management Coordinator Name Role Phone Hasmukh Encinas MD Primary Care Provider [phone] Encounter Details Date Type Department Care Team (Late st Contact Info) Description 06/07/2025 Telephone Adult Medicine [address] [phone] Hasmukh Encinas MD [address] [place] [address] Social History Tobacco Use Types Packs/Day Years [...] as of this encounter Progress Notes * Ritu Calabrese NP - 06/07/2025 2:03 PM EST No he cannot, this was explained to him in the office. His recent A1c is from 05/13/2025. A1c is recommended every 3-4 months. * Rama Thorne - 06/07/2025 10:28 AM EST Pt was seen today and states he discuss to have A1C done today and went to the lab and the order was not there , pt wants to see if this can be done today documented in this encounter Plan of Treatment Upcoming Encounters Date Type Department Care Team (Late st Contact Info) Description 10/06/2025 7:30 AM EDT Office Visit Adult Medicine South [address] [phone] Arcelia Chavez PA [address] [place], [place] 12/09/2025 7:45 AM EDT Office Visit Endocrinology [address] [phone] Ivy Burnette PA [address] [place] [phone] documented as of this encounter Visit Diagnoses Not on filedocumented in this encounter Care Teams Property Management Coordinator Relationship Specialty Start Date End Date Hasmukh Encinas MD [address] [place] [address] PCP - General Internal Medicine 03/15/20 documented as of this encounter
--- OUTSIDE RECORDS SUMMARY | 2025-06-15 19:49 | XMS_ITS | Continuity of Care Document ---
Author Organization [place] - [facility], [facility] Address [address] [place] [address] Care Team Providers Care Solderer Production Line Name Role Phone ROLA BURGESS Referring Provider [phone] Assessment Encounter Date Assessment Date Assessment LastModified [...] diabetes and sleep apnea. Referral to a preschool assistant teacher or weight management program may be beneficial. [...] None recorded. Imaging polysomno gram 2024 025 [email or web address] [facility] Scheduling Dept, [address] [place], [address], 03/25/2025 09:26:07 Medication Orders fluticaso ne propionat e 50 mcg/actua tion nasal spray,nolberto pension 2024 025 [id number], [address] [place], [address], 03/17/2025 13:59:28 Patient TargetsNo targets recorded. Patient Instructions Encounter Date Encounter Id Patient Instructions Last Modified By Organization Details Last Modified Time 03/17/2025 [id number] Resume daily use of Fluticasone nasal spray. Consider saline rinses during showers to improve nasal hygiene. Follow up with primary care provider for diabetes management and anxiety symptoms. Schedule a sleep study to evaluate for sleep apnea, considering both in-hospital and at-home options. Explore weight management strategies, including referral to a preschool assistant teacher or weight management program. 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 Heidi ortiz, [place] - [facility] [place] 5 13:36:20 Morbid obesity 394998515 Active 2013 RODGER HIGH MD [address] [place] [address], [place], [address] , [facility] - [facility] 5 13:57:12 Type 2 diabetes mellitus 11082858 Active 2015 Heidi ortiz [place] - [facility] 5 13:36:20 Dysphonia 69526278 Active 2017 Hoarsenes s; Note: Date Diagnosed : 07/17/2017 10:55 AM (R49.0) Not Available [facility] 4 02:38:50 Nasal congestio n 06247003 Active 2017 Nasal congestio n; Note: Date Diagnosed : 07/17/2017 10:55 AM (R09.81) Not Available [facility] 4 02:39:02 Chronic pansinusi tis 80296623 Active 2017 Chronic pansinusi tis; Note: Changed from J32.9 to J32.4 ( 8 11:52 AM) , Date Diagnosed : 07/17/2017 10:54 AM (J32.9) Not Available [facility] 4 02:38:45 Snoring 67011870 Active 2017 Snoring; Note: Date Diagnosed : 07/17/2017 10:55 AM (R06.83) Jerilyn ortiz [place] - [facility] 5 09:26:30 Deviated nasal septum 948911014 Active 2017 Deviated nasal septum; Note: Date Diagnosed : 07/17/2017 10:55 AM (J34.2) Not Available [facility] 4 02:38:56 Hypertrop hy of nasal turbinate s 92079632 Active 2017 Hypertrop hy of nasal turbinate s; Note: Date Diagnosed : 07/17/2017 10:54 AM (J34.3) Not Available [facility] 4 02:39:01 Acute conjuncti vitis of right eye 30945163931 9102 Active 2017 Unspecifi ed acute conjuncti vitis, right eye; Note: Date Diagnosed : 08/26/2017 12:26 PM (H10.31) Not Available [facility] 4 02:38:53 Essential hypertens ion 86414726 Active 2017 Essential (primary) hypertens ion; Note: Date Diagnosed : 08/26/2017 9:25 AM (I10) Not Available [facility] 4 02:38:54 Mixed anxiety and depressiv e disorder 619175548 Active 2018 Heidi ortiz [place] - [facility] 5 13:36:20 Polyp of nasal cavity 057011791 Active 2018 Polyp of nasal cavity; Note: Date Diagnosed : 01/16/2019 3:26 PM (J33.0) RODGER HIGH MD [address] [place] [address], [place], [address] [facility] - [facility] 5 13:57:18 Loss of sense of smell 39565324 Active 2018 Anosmia; Note: Date Diagnosed : 01/16/2019 3:26 PM (R43.0) Not Available [facility] 4 02:38:52 Follow-up visit Active 2018 Medical surveilla nce following completed treatment ; Note: Date Diagnosed : 9 12:02 PM (Z09) Not Available [facility] 4 02:39:00 Acute conjuncti vitis of left eye 68680296101 9105 Active 2018 Unspecifi ed acute conjuncti vitis, left eye; Note: Date Diagnosed : 05/08/2019 9:19 AM (H10.32) Not Available [facility] 4 02:38:49 Disorder of smell 824241025 Active 2018 Other disturban amber of smell and taste; Note: Date Diagnosed : 9 3:18 PM (R43.8) Not Available [facility] 4 02:38:55 Disorder of taste 274670376 Active 2018 Other disturban amber of smell and taste; Note: Date Diagnosed : 9 3:18 PM (R43.8) Not Available [facility] 4 02:38:55 Chronic rhinitis 13858560 Active 2019 Chronic rhinitis; Note: Date Diagnosed : 01/14/2020 12:11 PM (J31.0) Not Available [facility] 4 02:38:50 Generaliz ed anxiety disorder 29818588 Active 2020 Generaliz ed anxiety disorder; Note: Date Diagnosed : 07/21/2020 12:33 PM (F41.1) RODGER HIGH MD [address] [facility],[place] [address], [place], [address] , [place] - [facility] 5 13:57:24 Benign prostatic hyperplas ia 171314123 Active 2021 Heidi ortiz [place] - [facility] 5 13:36:20 Hyperlipi demia 94190020 Active 2021 Heidi ortiz [place] - [facility] 5 13:36:20 Prostate specific antigen above reference range 919042892 Active 2022 Heidi ortiz [place] - [facility] 5 13:36:20 Chronic sinusitis 98660396 Active 2023 RODGER HIGH MD [address] [facility] [place] [address], [place], [address] , [place] - [facility] 5 13:56:22 Chronic rhinosinu sitis with multiple nasal polyps Active 2024 AURORA GRANDE MD [address] [facility] [place], [place], [address] , [place] - [facility] 5 09:31:22 Hearing change 376744527 Active 2024 AURORA GRANDE MD [address] [facility] [place] [address], [place], [address] , [facility] - [facility] 5 10:15:12 Chronic maxillary sinusitis 08279902 Active 2024 Mirian ortizSPANGLE, [place] - [facility] 5 11:39:23 Sensorine ural hearing loss of bilateral ears 764659517 Active 2024 RODGER HIGH MD [address] [facility] [place] [address], [place], [address] , [facility] - [facility] 5 13:57:17 Uncontrol led type 2 diabetes mellitus 102730559 Active 2024 RODGER HIGH MD [address] [facility],[place] [address], [place], [address] , [facility] - [facility] 13:58:09 Problem Notes None recorded. Procedures Surgical History Date Name Laterality Status Provider Name and Address Organization Details Recorded Time 03/17/20 25 JMSNasal/Sinus Endoscopy-PRIOR surgical cavities completed RODGER BENAVIDES MD [address] [facility],[address], [address], [facility] - [facility] 03/17/2025 14:00:21 12/17/19 25 Comp Audio with Tymps - 70150 & 89989 completed TITO HAWLEY [address] [facility],[address], [address], [facility] - [facility] [place] 12/16/2024 14:18:46 12/17/19 25 JMSNasal/Sinus Endoscopy-PRIOR surgical cavities completed RODGER BENAVIDES MD [address] [facility],[address], [address], [facility] - [facility] 12/16/2024 13:57:14 08/04/19 25 otomicroscopy completed AURORA GRANDE MD [address] [facility],[address], [address], [place] - [facility] 08/04/2024 09:30:14 04/20/20 24 JMSNasal/Sinus Endoscopy-PRIOR surgical cavities completed RODGER BENAVIDES MD [address] [facility] [place],[address], [address], [place] - [facility] 04/20/2024 09:04:09 functional endoscopic sinus surgery completed RODGER BENAVIDES MD [address] [facility] [place],[address], [address], [place] - [facility] 04/17/2024 22:22:02 open stone operation on kidney or renal pelvis completed RODGER BENAVIDES MD [address] [facility] [place] [address], [place], [address], [place] [facility] 04/17/2024 22:22:17 tooth extraction completed Heidi Castro [place] [facility] 12/16/2024 13:39:26 endoscopic carpal tunnel release completed Heidi Castro [place] [facility] 12/16/2024 13:39:38 operative procedure on hand completed Heidi Castro [place] - [facility] 12/16/2024 13:39:48 Imaging Results None recorded. Procedure Notes None recorded. Medical Equipment None Reported. Allergies Allergen ID Allergen Name Allergen Category Reaction Reaction Severity Criticality Documentation Date Start Date Code Code System Note Provider Name and Address Organization Details Recorded Time 863393 meperidin e hydrochlo ride medicatio n other Not available Not available 11/12/2023 23815 5 RxNorm React ion: unkno wn, unspe cifie d;; Not Available [facility] 4 01:07:08 945913 Demerol medicatio n Not available Not available Not available 04/20/2024 00356 1 RxNorm Mirian ortiz [place] [facility] 4 08:53:15 005749 meperidin e hydrochlo ride medicatio n hallucina tions Not available Not available 12/16/20242005 58062 5 RxNorm Other react ions and sever ities : 'Naus ea And Vomit ing'. Heidi ortiz [place] [facility] 5 13:36:12 Medications Name Sig Start Date Stop Date Status Note LastModified by Organization Details LastModified Time bicalutam sharda 50 mg tablet TAKE 1 TABLET BY MOUTH EVERY DAY NOW UNTIL THE END OF RADIATIO N 04/20 completed Not Available Not Available Not Available prednison e 10 mg tablet 4 tablet by mouth 04/26 completed Medicati on ID: [id number] D uration Value: 5 Brand Name: predniso [...] by mouth 04/20 completed Medicati on ID: [id number] D uration Value: 10 Prescri bed By [...] mg tablet 04/20 completed Medicati on ID: [id number] B rand Name: sertrali ne Send Method: E-Prescr ibed Sub s Allowed: subs OK Medic [facility] ericName : sertrali ne Not Available Not [...] mg tablet 01/16 completed Medicati on ID: [id number] D uration Value: 2 Brand Name: oxycodon [...] Updated DateTime 03/17/2025 182.88 cm 43.9 kg/m2 106297.93 g RODGER BENAVIDES MD [address] [place] [address], [address], [place] - [facility] 03/17/2025 13:57:41 Social History None recorded. Functional [...] ortiz [place] - [facility] 12/16/2024 13:36:26 Tdap 9 pablo ortiz [place] [facility] 12/16/2024 13:36:26 Td (adult), 2 Lf tetanus toxoid, preservative free, adsorbed 9 completed Heidi ortiz [place] [facility] 12/16/2024 13:36:26 Past Encounters Encounter ID Performer Location Encounter Start Date Encounter Closed Date Diagnosis/Indication Diagnosis SNOMED-CT Code Diagnosis ICD10 Code Diagnosis IMO Codes Diagnosis Note [id number] RODGER HIGH MD [facility] [address] [address] 03/17/2025 13:45:31 03/17/2025 14:03:40 Chronic sinusitis 94241372 J32.8 87469 Snoring 64170675 R06.83 7284614486 Morbid obesity 236900435 E66.01 49796 Uncontroll ed type 2 diabetes mellitus 362738888 E11.65 31653129 Health Concerns Section Related Observation LastModified by Organization Detai ls LastModified Time None Recorded Concern Status LastModified by Organization Details LastModified Time None Recorded Payers Encounter Date Sequence Insurance Name Policy Number Policy Appiah Covered Member ID Appiah Member ID Guarantor Name 03/17/2025 1 [facility] Brett Hagen [id number] Brett Hagen Notes Date Note Type [...] willing to consider it. RODGER BENAVIDES MD [address] [place] [address], [address], [facility] - [facility] 03/17/2025 14:01:41
--- OUTSIDE RECORDS SUMMARY | 2025-06-15 19:49 | XMS_ITS | Clinical Summary ---
Author Organization [facility] Address [address] [place] [phone] Phone Care Team Providers Care Pump Servicer Name Role Phone Hasmukh Encinas MD Primary Care Provider [phone] Allergies Active Allergy Reactions Criticality Noted Date Comments Meperidine Hcl Hallucinations,Nausea And Vomiting 08/06/2005 Medications cholecalciferol (VITAMIN D-3) 50 mcg (2,000 unit) tablet Take 1 Tablet by mouth daily. 02/20/2023 Active blood sugar diagnostic (OneTouch Verio test strips) test strip Use to check blood sugars daily 100 each 12 03/25/2025 03/25/20 26 Active blood-glucose meter (OneTouch Verio Flex meter) misc Used to check blood sugars daily 1 each 03/25/2025 Active lancets (EncapTouch Delica Plus Lancet) 30 gauge Use to check BS daily 100 each 11 03/25/2025 Active amLODIPine (NORVASC) 5 mg tablet TAKE 1 TABLET BY MOUTH EVERY DAY 90 tablet 1 03/31/2025 Active hydroCHLOROthia zide (HYDRODIURIL) 25 mg tablet TAKE 1 TABLET BY MOUTH EVERY DAY 90 tablet 1 03/31/2025 Active atorvastatin (LIPITOR) 20 mg tablet TAKE 1 TABLET BY MOUTH EVERYDAY AT BEDTIME 90 tablet 1 03/31/2025 Active nadoloL (CORGARD) 80 mg tablet TAKE 1 TABLET BY MOUTH EVERY DAY 90 tablet 1 03/31/2025 Active semaglutide (Ozempic) 1 mg/dose (4 mg/3 mL) injection penIndications: Type II diabetes mellitus, well controlled (CMS/HCC V24, CMS/HCC V28) Inject 1 mg under the skin every 7 (seven) days. 3 mL 5 05/13/2025 Active Active Problems Problem Noted Date Diagnosed Date JOSEFINA on CPAP 06/07/2025 Overview (06/07/2025): 2 months ago with ENT (started using machine 2 weeks ago) Elevated PSA 01/29/2023 BPH (benign prostatic hyperplasia) [...] Encounters Date Type Department Care Team Description 06/07/2025 10:20 AM EST Lab Draw [address] Encounter for screening for cardiovascular disorders; Primary hypertension 06/07/2025 7:30 AM EST Office Visit Adult Medicine [address] [phone] Ritu Calabrese NP Type II diabetes mellitus, well controlled (CMS/HCC V24, CMS/HCC V28) (Primary Dx); Primary hypertension; Pure hypercholesterolemia; Encounter for screening for cardiovascular disorders; JOSEFINA (obstructive sleep apnea); JOSEFINA on CPAP 06/07/2025 Results Follow-Up Adult Medicine [address] [phone] Rtiu Calabrese NP 06/07/2025 Telephone Adult Medicine [address] [phone] Hasmukh Encinas MD 06/02/2025 Telephone Adult Medicine [address] [phone] Hasmukh Encinas MD 05/13/2025 9:15 AM EST Lab Draw [address] Type II diabetes mellitus, well controlled (CMS/HCC V24, CMS/HCC V28) 05/13/2025 8:30 AM EST Office Visit [address] [phone] Ivy Burnette PA Type II diabetes mellitus, well controlled (CMS/HCC V24, CMS/HCC V28) (Primary Dx); Primary hypertension; Hyperlipidemia, unspecified hyperlipidemia type 05/13/2025 Results Follow-Up [address] [phone] Ivy Burnette PA 04/08/[address] [phone] Ivy Burnette PA 03/25/2025 8:00 AM EDT Consult [address] [phone] Ivy Burntete PA Type II diabetes mellitus, well controlled (CMS/HCC V24, CMS/HCC V28) (Primary Dx); Primary hypertension; Morbid obesity (CMS/HCC V24, CMS/HCC V28) from Last 3 Months Immunizations Immunization Administration Dates Next Due Pneumococcal polysaccharide 23 valent (Pneumovax 23) 2yo and older 06/20/2018 Td Tetanus diptheria (Tdvax) 7yo and older 06/29 Tdap Tetanus diptheria acell ular pertussis (Boostrix; Adacel) 7yo and older 01/27/2009 Surgical History Surgery Date Site/Laterality Comments HAND SURGERY 1991 PROCEDURE: HISTORICAL HAND SURGERY; COMMENT: nerve repair l middle finger COLONOSCOPY 07/11/2012 PROCEDURE: AK COLONOSCOPY FLX DX W/COLLJ SPEC WHEN PFRMD; [...] on file Sexual Orientation Not on file Last Filed Vital Signs Vital Sign Reading Time Taken Comments Blood Pressure 126/82 06/07/2025 8:06 AM EST Pulse 71 06/07/2025 7:38 AM EST Temperature 36.9 C (98.4 F) 06/07/2025 7:38 AM EST Respiratory Rate 15 06/07/2025 7:38 AM EST Oxygen Saturation 98% 06/07/2025 7:38 AM EST Inhaled Oxygen Concentration - - Weight 138 kg (304 lb 9.6 oz) 06/07/2025 7:38 AM EST Height 182.9 cm (6') 06/07/2025 7:38 AM EST Body Mass Index 41.31 06/07/2025 7:38 AM EST Plan of Treatment Upcoming Encounters Date Type Department Care Team (Late st Contact Info) Description 10/06/2025 7:30 AM EDT Office Visit Adult Medicine [address] [phone] Arcelia Chavez PA [address] [place], [place] 12/09/2025 7:45 AM EDT Office Visit Endocrinology [address] [phone] Ivy Burnette PA [address] [place] [address] Health Maintenance Due Date Last Done Comments Colorectal Cancer Screening: Colonoscopy 1962 Diabetes: Annual Foot Exam 02/07/1972 Diabetes: Annual Retina Eye Exam 02/07/1972 Zoster Vaccines (1 of 2) 1981 RSV Immunization Adult Patients (1 - Risk 50-74 years 1-dose series) 02/07/2012 Pneumococcal Vaccine: 50+ Years (2 of 2 - PCV) 06/20/2019 06/20/2018 HIV Screening 06/09/2022 Social Influencers of Health Screening 06/09/2022 Depression Screening 07/01/2024 COVID-19 Vaccine ( season) 2025 06/26/2021, 11/03/2020, 10/12/2020 Influenza Vaccine (#1) 2025 Diabetes: Annual Urine Albumin-Creatinine Ratio (uACR) 08/28/2025 08/28/2024, 02/25/2024 Diabetes: Blood Sugar Control Test (HGBA1C) 11/10/2025 05/13/2025, 01/27/2025, 08/28/2024, Additional history exists Diabetes: Annual GFR (Glomerular Filtration Rate) 06/07/2026 06/07/2025, 03/02/2025, 08/28/2024, Additional history exists Hypertension/CHF/CAD Annual BMP Blood Test 06/07/2026 06/07/2025, 03/02/2025, 08/28/2024, Additional history exists DTaP,Tdap,and Td Vaccines (3 - Td or Tdap) 06/29/2029 06/29/2019, 01/27/2009 Cholesterol Screening (Lipid Panel) 06/07/2030 06/07/2025, 03/02/2025, 08/28/2024, Additional history exists Hepatitis C Screening Completed 05/01/2016 HIB Vaccines [...] Procedure Name Priority Date/Time Associated Diagnosis Comments BASIC METABOLIC PANEL Routine 06/07/2025 10:24 AM EST Primary hypertension LIPID PANEL WITH REFLEX TO DIRECT LDL Routine 06/07/2025 10:24 AM EST Encounter for screening for cardiovascular disorders HEMOGLOBIN A1C Routine 05/13/2025 9:25 AM EST Type II diabetes mellitus, well controlled (CMS/HCC V24, CMS/HCC V28) POC GLUCOSE Routine 05/13/2025 8:35 AM EST Type II diabetes mellitus, well controlled (CMS/HCC V24, CMS/HCC V28) POC GLUCOSE Routine 03/25/2025 8:30 AM EDT Type II diabetes mellitus, well controlled (CMS/HCC V24, CMS/HCC V28) MICROALBUMIN CREATININE URINE RATIO Routine 08/28/2024 1:52 PM EST Type II diabetes mellitus, well controlled (CMS/HCC V24, CMS/HCC V28) HEPATITIS C SCREENING Routine 05/01/2016 from Last 3 Months or Most Recently Relevant to Health Maintenance Results * Lipid panel with reflex to direct LDL (06/07/2025 10:24 AM EST) Cholesterol 119 0 - 200 mg/dL 06/07/2025 3:03 PM [facility] Triglycerides 137 0 - 150 mg/dL 06/07/2025 3:03 PM [facility] HDL 43 >=40 mg/dL 06/07/2025 3:03 PM [facility] LDL Calculated 49 0 - 100 mg/dL 06/07/2025 3:03 PM [facility] Comment:Estimated LDL is jeramy culated using the Friedewald equation: Total cholesterol - HDL cholesterol - (Triglycerides/5) VLDL Cholesterol Jeramy 27.4 mg/dL 06/07/2025 3:03 PM [facility] Non HDL Chol. (LDL+VLDL) 76 <145 mg/dL 06/07/2025 3:03 PM [facility] Chol/HDL Ratio 2.8 0.0 - 4.4 06/07/2025 3:03 PM [facility] Blood Venous blood specimen / Unknown Venipuncture / Unknown 06/07/2025 10:24 AM EST 06/07/2025 10:24 AM EST us Ritu Calabrese [employer] LAB BLOOD ORDERABLES Final Re sult [facility] [address] [place] [address], [place] [phone] * (ABNORMAL) Basic metabolic panel (06/07/2025 10:24 AM EST) Pathologist [facility] [place] Sodium 137 133 - 145 mmol/L 06/07/2025 3:03 PM [facility] Potassium 4.2 3.5 - 5.5 mmol/L 06/07/2025 3:03 PM [facility] Chloride 99 96 - 110 mmol/L 06/07/2025 3:03 PM [facility] CO2 29 21 - 32 mmol/L 06/07/2025 3:03 PM [facility] Anion Gap 9 3 - 11 06/07/2025 3:03 PM [facility] Glucose 103(H) 70 - 100 mg/dL 06/07/2025 3:03 PM [facility] BUN 15 5 - 25 mg/dL 06/07/2025 3:03 PM [facility] Creatinine 0.82 0.70 - 1.30 mg/dL 06/07/2025 3:03 PM [facility] eGFR 99 >=60 mL/min/1. 73m2 06/07/2025 3:03 PM [facility] Comment:Calculation based on the Chronic Kidney Disease Epidemiology Collaboration (CKD-EPI) equation refit without adjustment for race. BUN/Creatinine Ratio 18.3 06/07/2025 3:03 PM [facility] Calcium 9.5 8.5 - 10.5 mg/dL 06/07/2025 3:03 PM [facility] Blood Venous blood specimen / Unknown Venipuncture / Unknown 06/07/2025 10:24 AM EST 06/07/2025 10:24 AM EST us Ritu Calabrese [employer] LAB BLOOD ORDERABLES Final Re sult [facility] [address] [place] [address], * (ABNORMAL) Hemoglobin A1c (05/13/2025 9:25 AM EST) Hemoglobin A1C 6.9(H) <6.5 % LAB CHEMISTRY METHOD 05/13/2025 1:26 PM EST [facility] Mean Bld Glu Estim. 151 mg/dL LAB CHEMISTRY METHOD 05/13/2025 1:26 PM EST [facility] Blood Venous blood specimen / Unknown Venipuncture / Unknown 05/13/2025 9:25 AM EST 05/13/2025 9:25 AM EST us Ivy QUICK LAB BLOOD ORDERABLES Final Result [facility] [address] [place] [address], [place] [phone] * POC glucose manually resulted (05/13/2025 8:35 AM EST) Only the most recent of2 resultswithin the time period is included. Glucose POC 145 mg/dL Blood Capillary blood specimen / Unknown 05/13/2025 8:35 AM EST us Ivy QUICK POINT OF CARE TEST ENTER/ED IT ORDERABLES Final Result * Microalbumin creatinine urine ratio (08/28/2024 1:52 PM EST) Creatinine, Urine 68.0 mg/dL LAB CHEMISTRY METHOD 08/28/2024 6:01 PM [facility] Microalb, Ur <5.0 0.0 - 29.0 mg/L LAB CHEMISTRY METHOD 08/28/2024 6:01 PM EST [facility] Microalb/Creat Ratio <7 <30 mg/g creat LAB CHEMISTRY METHOD 08/28/2024 6:01 PM EST [facility] Urine Urine specimen obtained by clean catch procedure / Unknown Non-blood Collection / Unknown 08/28/2024 1:52 PM EST 08/28/2024 1:52 PM EST us Hasmukh Encinas MD LAB URINE ORDERABLES Final [facility]u [facility] [address] [place] [address], * Hepatitis C Screening (05/01/2016) Hepatitis C Screening Abstracted us Historical Provider HEALTH MAINTENANCE Final Result from Last 3 Months or Most Recently Relevant to Health Maintenance Insurance [facility] Care Teams Pump Servicer Relationship Specialty Start Date End Date Hasmukh Encinas MD [address] [place] [address] PCP - General Internal Medicine 03/15/20
== END 2025-06-15 16:23 | disposition home or self-care (01) ==
LOC: HO.HUSH 15:39
PROVIDERS: PCP Internal Medicine; Visit Provider Urology
DX: C61 Malignant neoplasm of prostate (principal); N20.0 Calculus of kidney
CPT/HCPCS: 99213